=== PATIENT | female | born 1945 | race Asian ===

== ENCOUNTER 2016-06-19 08:13 | Emergency (ER) | payer MEDICARE, OTHER ==
[~2016-06-19] VITALS: Ht 160 cm; Wt 50.5 kg
[~2016-06-19 08:13] MED LIST: BENA5TAB2 PO; CETI10CA PO; CHLO25TA13 PO; GUAI120S26 PO; IBUP-1542 PO; OSLT75C PO
[2016-06-19 08:21] VITALS: Ht 160 cm; Wt 50.5 kg
--- NOTE | 2016-06-19 09:00 | ERD ---
ER Documentation Chief Complaint Date/Time DATE: 06/19/16 TIME: 08:57 Chief Complaint HTN NOTED AT HOME LAST NIGHT SBP 200; BP 138/93 IN TRIAGE HPI Patient is a 71-year-old female with a history of hypertension who presents to the ED with an episode of high blood pressure in the 200s yesterday. She states that she takes losartan and hydrochlorothiazide as prescribed. She states that her blood pressure has been normal today. She is here for repeat blood pressure check. She denies any headache or dizziness. His chest pain, cough, shortness of breath or difficulty moving. Denies abdominal pain, nausea , vomiting or diarrhea. Denies leg pain or swelling. No other complaints. ROS All systems reviewed and are negative except as per history of present illness. Medications Home Meds Active Scripts Cetirizine Hcl* (Zyrtec*) 10 Mg Capsule, 10 MG PO DAILY, #30 TAB.CHEW Prov:ALICIA GALARZA HARMONIC ANALYST 05/10/15 Ttsfgxkrmzl-Y-Rhgadapjfq Hb* (Guaifenesin* DM Syrup) 120 Ml Syrup, 10 ML PO Q4H Y for COUGH, #60 ML Prov:ALICIA GALARZA HARMONIC ANALYST 05/10/15 Ibuprofen* (Motrin*) 600 Mg Tab, 600 MG PO Q6H Y for PAIN AND OR ELEVATED TEMP, #30 TAB Prov:ALICIA GALARZA HARMONIC ANALYST 05/10/15 Oseltamivir Phosphate* (Tamiflu*) 75 Mg Capsule, 75 MG PO BID for 5 Days, CAP Prov:ALICIA GALARZA HARMONIC ANALYST 05/10/15 Reported Medications Benazepril Hcl* (Benazepril Hcl*) Unknown Strength Tablet, PO DAILY, #30 TAB 05/10/15 Chlorthalidone* (Chlorthalidone*) Unknown Strength Tablet, PO DAILY, TAB 05/10/15 Allergies Allergies: Coded Allergies: No Known Allergy (Unverified , 05/10/15) PMhx/Soc History of Surgery: No Anesthesia Reaction: No Hx Neurological Disorder: No Hx Respiratory Disorders: No Hx Cardiac Disorders: Yes (HTN) Hx Psychiatric Problems: No Hx Miscellaneous Medical Probl: No Hx Alcohol Use: No Hx Substance Use: No Hx Tobacco Use: No Smoking Status: Never smoker FmHx Family History: No coronary disease, No diabetes, No other Physical Exam Vitals Vital Signs Date Time Temp Pulse Resp B/P Pulse Ox O2 Delivery O2 Flow Rate FiO2 06/19/16 12:14 172/89 06/19/16 08:21 99.3 98 16 138/93 99 Physical Exam GENERAL: Well-developed, well-nourished female. Appears in no acute distress. HEAD: Normocephalic, atraumatic. EYES: Pupils are equally reactive bilaterally. EOMs grossly intact. No conjunctival erythema. ENT: Moist mucous membranes. No uvula deviation. No kissing tonsils. No exudates. NECK: Supple. No lymphadenopathy or thyromegaly. No meningismus. negative kernig. negative brudinski. LUNG: Clear to auscultation bilaterally. No rhonchi, wheezing, rales or coarse breath sounds. HEART: Regular rate and rhythm. No murmurs, rubs or gallops. ABDOMEN: No scars, ecchymosis or rashes noted. Soft, nontender, and nondistended. Positive bowel sounds in all four quadrants. No rebound tenderness , no guarding. (-) McBurneys point tenderness. No CVA tenderness. BACK: No midline tenderness. Extremities: Equal pulses bilaterally. No peripheral clubbing, cyanosis or edema. No unilateral leg swelling. NEUROLOGIC: Alert and oriented. Moving all four extremities. 5/5 strength in all extremities. Normal speech. Steady gait. Cranial nerves II through XII intact. No ataxia. Negative Romberg test SKIN: Normal color. Warm and dry. No rashes or lesions. Capillary refill < 2 seconds Result Diagram: 06/19/16 1025 06/19/16 1025 Results 24 hrs Laboratory Tests Test 06/19/16 10:25 White Blood Count 8.610^3/ul Red Blood Count 4.5910^6/ul Hemoglobin 13.6g/dl Hematocrit 41.7% Mean Corpuscular Volume 90.8fl Mean Corpuscular Hemoglobin 29.6pg Mean Corpuscular Hemoglobin Concent 32.6g/dl Red Cell Distribution Width 12.1% Platelet Count 06563^3/UL Mean Platelet Volume 8.6fl Neutrophils % 80.3% Lymphocytes % 12.8% Monocytes % 6.0% Eosinophils % 0.2% Basophils % 0.2% Nucleated Red Blood Cells % 0.0/100WBC Neutrophils # 6.910^3/ul Lymphocytes # 1.110^3/ul Monocytes # 0.510^3/ul Eosinophils # 0.010^3/ul Basophils # 0.010^3/ul Nucleated Red Blood Cells # 0.010^3/ul Sodium Level 132mmol/L Potassium Level 4.0mmol/L Chloride Level 92mmol/L Carbon Dioxide Level 28mmol/L Anion Gap 16 Blood Urea Nitrogen 12mg/dl Creatinine 0.63mg/dl Glucose Level 108mg/dl Calcium Level 9.9mg/dl Total Bilirubin 0.8mg/dl Direct Bilirubin 0.00mg/dl Indirect Bilirubin 0.8mg/dl Aspartate Amino Transf (AST/SGOT) 30IU/L Alanine Aminotransferase (ALT/SGPT) 48IU/L Alkaline Phosphatase 76IU/L Total Protein 7.8g/dl Albumin 4.7g/dl Globulin 3.10g/dl Albumin/Globulin Ratio 1.51 Lipase 78U/L Procedures/MDM ER COURSE: I kept the patient and/or family informed of laboratory and diagnostic imaging results throughout the emergency room course. EKG performed, read by Dr. Wadsworth 97bpm, normal sinus rhythm, normal axis, no acute ST segment changes, no T wave inversion MEDICAL DECISION MAKING: This is a 71-year-old female who presents with one episode of high blood pressure reading yesterday.. Vital signs were reviewed. Patient is afebrile. Patient is not hypoxic. Patient has a blood pressure reading of 138/93 here in the ED. Explained to patient that her blood pressure is within normal limits. Her exam is within normal limits. A CAT scan was discussed, risks versus benefits but patient and patient's son refused. Patient is just requesting a repeat blood pressure. . Low suspicion for hypertensive urgency, emergency or endorgan damage. I cnosulted with Dr. Wadsworth regarding this patient, an EKG and blood work was performed. Blood work was within normal limits, no signs of renal disease, anemia. Her blood pressure was rechecked and it was slightly elevated to 172/89. Patient does not show signs of hypertensive urgency, emergency or endorgan damage. Patient can be sent on an outpatient basis and to follow-up with primary care regarding better management of her blood pressure. Patient was also nervous about her blood pressure results and her slightly elevated blood pressure is likely related to stress reaction as well. No CT scan will be done here in the ED as patient did not want one and Low suspicion for intracranial hemorrhage, meningitis, intracranial mass, concussion , temporal arteritis, stroke, elevated intracranial pressure, seizure DISCHARGE: At this time, patient is stable for discharge and outpatient management with no new complaints during the ER course. Patient was sent home with instructions to follow primary care for repeat blood pressure and copy of laboratory studies. . Patient will be discharged home with instructions to recheck for new or worsening symptoms such as fever, nausea, weakness, LOC and to follow up with primary care in the next 1-2 days. Patient was advised to return to the ER for any new or worsening symptoms. Plan was discussed and patient and/or family understands and agrees. Home instructions were given. Departure Diagnosis: Primary Impression: Hypertension Hypertension type: essential hypertension Qualified Code: I10 - Essential hypertension Condition: Stable OSBALDO MONTENEGRO PA-C Jun 19, 2016 09:00
[2016-06-19 10:54] LABS: ADD SCAN DIFF NO
[2016-06-19 11:00] LABS: BASOPHILS % 0.2 % (0.0-2.0); EOSINOPHILS % 0.2 % (0.0-7.0); HEMATOCRIT 41.7 % (37.0-47.0); HEMOGLOBIN 13.6 g/dl (12.0-16.0); LYMPHOCYTES # 1.1 10^3/ul (0.8-2.9); LYMPHOCYTES % 12.8 % (15.0-51.0); MEAN CORPUSCULAR HEMOGLOBIN 29.6 pg (29.0-33.0); MEAN CORPUSCULAR HGB CONC 32.6 g/dl (32.0-37.0); MEAN CORPUSCULAR VOLUME 90.8 fl (82.0-101.0); MEAN PLATELET VOLUME 8.6 fl (7.4-10.4); MONOCYTE # 0.5 10^3/ul (0.3-0.9); NEUTROPHIL # 6.9 10^3/ul (1.6-7.5); NEUTROPHILS % 80.3 % (39.0-77.0); PLATELET COUNT 273 10^3/UL (140-415); RED BLOOD COUNT 4.59 10^6/ul (4.20-5.40); RED CELL DISTRIBUTION WIDTH 12.1 % (11.5-14.5); WHITE BLOOD COUNT 8.6 10^3/ul (4.8-10.8)
[2016-06-19 11:19] LABS: ALBUMIN 4.7 g/dl (3.3-4.9); ALBUMIN/GLOBULIN RATIO 1.51; BILIRUBIN,INDIRECT 0.8 mg/dl (0-1.1); BILIRUBIN,TOTAL 0.8 mg/dl (0.2-1.3); CALCIUM 9.9 mg/dl (8.4-10.2); CREATININE 0.63 mg/dl (0.44-1.00); TOTAL PROTEIN 7.8 g/dl (6.1-8.1)
[2016-06-19 12:14] VITALS: BP 172/89
== END 2016-06-19 12:14 | disposition home or self-care (01) ==
LOC: FTE 08:13
DX: I10 Essential (primary) hypertension (principal)
CPT/HCPCS: 36415; 80053; 83690; 85025; 93005

== ENCOUNTER 2016-06-24 23:08 | Inpatient (IN) | payer MEDICARE, OTHER ==
[~2016-06-24] VITALS: Ht 160 cm; Wt 50.0 kg
[2016-06-24] MEDS ORDERED: SOD CHLORIDE 0.9% 1,000 ML IV STA (23:45)
[2016-06-24] MEDS ORDERED: ONDANSETRON 4 MG INJ IV STA (23:45)
[2016-06-25] VITALS (8 sets, daily range): BP systolic 82–110; BP diastolic 50–60; PULSE 53–66; RESP 16–18; TEMP 97.2; Ht 160 cm; Wt 50.0 kg
--- NOTE | 2016-06-25 00:26 | RADRPT ---
PROCEDURE: CT Brain without contrast. CLINICAL INDICATION: Patient experiencing a headache. TECHNIQUE: A multiplanar CT of the brain was performed on a CT scanner utilizing axial imaging fro m the skull base through the vertex without IV contrast. The CTDIvol is 42.02 mGy and the DLP is 72 0.23 mGycm. One or more of the following dose reduction techniques were utilized: Automated exposu re control, adjustment of the mA and/or kV according to patient size, use of iterative reconstructio n technique. COMPARISON: None FINDINGS: No evidence of intracranial hemorrhage or abnormal extra-axial fluid collection. The brain parenchyma is normal attenuation morphology with preservation of alexander white differentiatio n and age appropriate size of the ventricles and subarachnoid spaces. Atherosclerotic calcification of the cavernous internal carotid arteries. The basal cisterns, posterior fossa contents, brainstem, craniocervical junction, orbits, pituitary axis, paranasal sinuses, mastoid air cells, and calvarium are unremarkable. IMPRESSION: 1. No intracranial hemorrhage or acute intracranial abnormality. 2. Mild age related atrophy. RPTAT:AAJJ Physician Waleska Date Time Electronically viewed and signed by Physician Waleska on 06/25/2016 00:25 SHAWANDA/
[2016-06-25 00:34] LABS: ADD SCAN DIFF NO
[2016-06-25 00:36] LABS: BASOPHILS % 0.4 % (0.0-2.0); EOSINOPHILS # 0.1 10^3/ul (0.0-0.5); EOSINOPHILS % 1.4 % (0.0-7.0); HEMATOCRIT 36.3 % (37.0-47.0); LYMPHOCYTES # 1.6 10^3/ul (0.8-2.9); LYMPHOCYTES % 32.5 % (15.0-51.0); MEAN CORPUSCULAR HEMOGLOBIN 30.7 pg (29.0-33.0); MEAN CORPUSCULAR HGB CONC 35.8 g/dl (32.0-37.0); MEAN CORPUSCULAR VOLUME 85.6 fl (82.0-101.0); MEAN PLATELET VOLUME 8.5 fl (7.4-10.4); MONOCYTE # 0.5 10^3/ul (0.3-0.9); MONOCYTES % 9.3 % (0.0-11.0); NEUTROPHIL # 2.8 10^3/ul (1.6-7.5); NEUTROPHILS % 56.2 % (39.0-77.0); PLATELET COUNT 270 10^3/UL (140-415); RED BLOOD COUNT 4.24 10^6/ul (4.20-5.40); RED CELL DISTRIBUTION WIDTH 11.2 % (11.5-14.5); WHITE BLOOD COUNT 5.1 10^3/ul (4.8-10.8)
[2016-06-25 00:54] LABS: INR 0.89; PARTIAL THROMBOPLASTIN TIME 28.4 Sec (25.0-35.0); PT RATIO 0.9
[2016-06-25 00:56] LABS: ANION GAP 14 (8-16); BLOOD UREA NITROGEN 30 mg/dl (7-20); CALCIUM 9.3 mg/dl (8.4-10.2); CARBON DIOXIDE 28 mmol/L (21-31); CHLORIDE 81 mmol/L (97-110); CREATININE 0.83 mg/dl (0.44-1.00); GLUCOSE 118 mg/dl (70-220); POTASSIUM 3.5 mmol/L (3.5-5.1)
[2016-06-25 01:16] LABS: SODIUM 119 mmol/L (135-144); TROPONIN-I < 0.012 ng/ml (0.00-0.12)
[2016-06-25] MEDS ORDERED: SOD CHLORIDE 0.9% 1,000 ML IV SCH (01:37)
--- NOTE | 2016-06-25 01:46 | ERA ---
ER Documentation Chief Complaint Date/Time DATE: 06/25/16 TIME: 01:42 Chief Complaint Pt reports HTN at home, and darkness in both eyes, and feeling of general p HPI This 71-year-old female presents to the emergency room for evaluation of dizziness, nausea and vomiting. This patient states that she does have a history of hypertension and is taking a combination of benazepril/ hydrochlorothiazide, and clonidine. The patient states that she has vomited twice and denies any blood in the vomit. She does state that she noticed her blood pressure was elevated today so she took 3 tabs of her diuretic, and 3 tabs of clonidine instead of her normal dose 1 tab. The patient states that she took it to bring down her blood pressure. Patient has no headache or chest pain or palpitations at this time. ROS All systems reviewed and are negative except as per history of present illness. Medications Home Meds Active Scripts Cetirizine Hcl* (Zyrtec*) 10 Mg Capsule, 10 MG PO DAILY, #30 TAB.CHEW Prov:ALICIA GALARZA NP 05/10/15 Ggpbsznpwkg-F-Oxgevxusww Hb* (Guaifenesin* DM Syrup) 120 Ml Syrup, 10 ML PO Q4H Y for COUGH, #60 ML Prov:ALICIA GALARZA NP 05/10/15 Ibuprofen* (Motrin*) 600 Mg Tab, 600 MG PO Q6H Y for PAIN AND OR ELEVATED TEMP, #30 TAB Prov:ALICIA GALARZA NP 05/10/15 Oseltamivir Phosphate* (Tamiflu*) 75 Mg Capsule, 75 MG PO BID for 5 Days, CAP Prov:ALICIA GALARZA NP 05/10/15 Reported Medications Benazepril Hcl* (Benazepril Hcl*) Unknown Strength Tablet, PO DAILY, #30 TAB 05/10/15 Chlorthalidone* (Chlorthalidone*) Unknown Strength Tablet, PO DAILY, TAB 05/10/15 Allergies Allergies: Coded Allergies: No Known Allergy (Unverified , 05/10/15) PMhx/Soc Medical and Surgical Hx: pt denies Surgical Hx History of Surgery: No Anesthesia Reaction: No Hx Neurological Disorder: No Hx Respiratory Disorders: No Hx Cardiac Disorders: Yes (HTN) Hx Psychiatric Problems: No Hx Miscellaneous Medical Probl: No Hx Alcohol Use: No Hx Substance Use: No Hx Tobacco Use: No Smoking Status: Never smoker Physical Exam Vitals Vital Signs Date Time Temp Pulse Resp B/P Pulse Ox O2 Delivery O2 Flow Rate FiO2 06/24/16 23:29 98.1 66 18 134/81 100 Physical Exam INITIAL VITAL SIGNS: Reviewed by me GENERAL: The patient is well developed and appropriate for usual state of health in no apparent distress HEENT: Pupils equal, round, and reactive to light. EOMI. There is no scleral icterus. NECK: C-spine is soft and supple, there is no meningismus. There is no cervical lymphadenopathy. LUNGS: Clear to auscultation bilaterally. There are no rales, wheezes or rhonchi. HEART: Regular rate and rhythm, no murmurs, clicks, rubs or gallops. ABDOMEN: Soft, non-tender, non-distended. There are bowel sounds in all four quadrants. No rebound or guarding. EXTREMITIES: There is no peripheral cyanosis or edema. No focal swelling or erythema. NEUROLOGICAL: The patient moves all four extremities with 5/5 strength. Cranial nerves II - XII are intact. Normal gait. Alert and oriented SKIN: There is no apparent rash or petechiae. HEME/LYMPHATIC: There is no evidence of excessive bruising or lymphedema. PSYCHIATRIC: The patient does not appear anxious or depressed. Result Diagram: 06/24/163 06/24/163 Results 24 hrs Laboratory Tests Test 06/24/16 23:53 White Blood Count 5.110^3/ul Red Blood Count 4.2410^6/ul Hemoglobin 13.0g/dl Hematocrit 36.3% Mean Corpuscular Volume 85.6fl Mean Corpuscular Hemoglobin 30.7pg Mean Corpuscular Hemoglobin Concent 35.8g/dl Red Cell Distribution Width 11.2% Platelet Count 43081^3/UL Mean Platelet Volume 8.5fl Neutrophils % 56.2% Lymphocytes % 32.5% Monocytes % 9.3% Eosinophils % 1.4% Basophils % 0.4% Nucleated Red Blood Cells % 0.0/100WBC Neutrophils # 2.810^3/ul Lymphocytes # 1.610^3/ul Monocytes # 0.510^3/ul Eosinophils # 0.110^3/ul Basophils # 0.010^3/ul Nucleated Red Blood Cells # 0.010^3/ul Prothrombin Time 12.0Sec Prothrombin Time Ratio 0.9 INR International Normalized Ratio 0.89 Activated Partial Thromboplast Time 28.4Sec Sodium Level 119mmol/L Potassium Level 3.5mmol/L Chloride Level 81mmol/L Carbon Dioxide Level 28mmol/L Anion Gap 14 Blood Urea Nitrogen 30mg/dl Creatinine 0.83mg/dl Glucose Level 118mg/dl Calcium Level 9.3mg/dl Troponin I < 0.012ng/ml Current Medications Medications (Trade) Dose Ordered Sig/Tri Route PRN Reason Start Time Stop Time Status Last Admin Dose Admin Sodium Chloride (NS) 1,000 ml @ 1,000 mls/hr Q1H STAT IV 06/24/16 23:45 06/25/16 00:44 DC 06/25/16 00:09 Ondansetron HCl 4 mg 4 mg ONCE STAT IV 06/24/16 23:45 06/24/16 23:46 DC 06/25/16 00:09 Sodium Chloride (NS) 1,000 ml @ 80 mls/hr [id number] IV 06/25/16 01:37 06/25/16 14:06 Ondansetron HCl (Zofran Inj) 4 mg ER BRIDGE PRN IV NAUSEA AND/OR VOMITING 06/25/16 02:00 06/26/16 01:59 Acetaminophen (Tylenol Tab) 650 mg ER BRIDGE PRN PO MILD PAIN/FEVER 06/25/16 02:00 06/26/16 01:59 Procedures/MDM CT head: 1. No intracranial hemorrhage or acute intracranial abnormality. 2. Mild age related atrophy. EKG: Rate/Rhythm: [Normal Sinus Rhythm] QRS, ST, T-waves: [No changes consistent w/ acute ischemia] Impression: [No evidence of ischemia or arrhythmia]EKG: This 71-year-old female presents to the emergency room for evaluation of weakness, dizziness, nausea and vomiting. I evaluated this patient and she did receive Zofran. She was complaining of dizziness and stated that she was hypertensive so I obtain a CT of the head to rule out any intracranial bleed. This patient was seen in fast track 5 days ago for the same symptoms and was discharged home. Her CAT scan is normal. I did note that her sodium was markedly decreased from her previous ER visit which was 5 days ago. Sodium was 119. The patient had no seizure activity. This patient did take extra hydrochlorothiazide today and I feel that the excessive a thiazide diuretic is caused hyponatremia. She has no signs of seizure activity in the emergency room , no necessity at this time for hypertonic saline however she will need to stay in the hospital for slow hydration and further evaluation of serum sodium in the morning. The patient will be admitted to our telemetry floor under the care of Dr. plummer Departure Diagnosis: Primary Impression: Hyponatremia Additional Impressions: Thiazide diuretic adverse reaction Hypochloremia Condition: Fair ANDREA TRIPLETT DO Jun 25, 2016 01:46
[2016-06-25] MEDS ORDERED: ACETAMINOPHEN 325 MG TAB PO PRN ×2 (02:00→06:30)
[2016-06-25] MEDS ORDERED: ONDANSETRON 4 MG INJ IV PRN ×2 (02:00→06:30)
[2016-06-25] MEDS ORDERED: SOD CHLORIDE 0.45% 1,000 ML IV SCH (06:29)
[2016-06-25] MEDS ORDERED: NACL 0.9% 3 ML SYG IV SCH (06:30)
[2016-06-25] MEDS ORDERED: morphine 2 MG INJ IV PRN (06:30)
[2016-06-25] MEDS ORDERED: LORAZEPAM 0.5 MG TAB PO PRN (06:30)
[2016-06-25] MEDS ORDERED: hydrALAzine 20 MG INJ IV PRN (06:30)
[2016-06-25] MEDS ORDERED: GUAIFENESIN/DM 5ML CUP PO PRN (06:30)
--- NOTE | 2016-06-25 08:46 | HP ---
DATE OF ADMISSION: 06/25/2016 CHIEF COMPLAINT: Dizziness, nausea, and vomiting. HISTORY OF PRESENT ILLNESS: The patient is a 71-year-old female with a history of hypertension who presented to the emergency department with the chief complaint of dizziness, nausea, and vomiting. She said when she found out that her blood pressure was high, she took three pills of her benazepril and 3 pills of clonidine as opposed to her normal dose of one pill. She then said she started feel ing dizzy and vomited which was described as nonbilious and nonbloody. The patient was seen here in the ER about 6 days ago after she presented complaining of elevated blood pressure in the 200s at [facility]. In the triage, her blood pressure was 138/93. The patient was discharged from the ER to [facility] up with her primary care doctor. When she presented to the ER this time, blood pressure was 134/8 1, heart rate 66, respiratory rate 18, temperature 98.1, oxygen saturation 100% on room air, and her blood pressures remained in acceptable range while she was in the ER. She, however, was found to h ave sodium of 119, chloride 81, BUN was 30 with a creatinine of 0.8. Otherwise, the rest of CBC and BMP were within acceptable range. A head CT was done, and it only showed mild age-related atrophy. Otherwise, no acute findings. REVIEW OF SYSTEMS: A 12-point review was performed and negative except as mentioned in the HPI. PAST MEDICAL HISTORY: As per HPI. SOCIAL HISTORY: Denied history of tobacco, alcohol, or illicit drug use. ALLERGIES: NO KNOWN DRUG ALLERGIES. HOME MEDICATIONS: 1. Zyrtec. 2. Benazepril. 3. Ibuprofen. 4. Clonidine. 5. Chlorthalidone. 6. Guaifenesin. PHYSICAL EXAMINATION: VITAL SIGNS: Stable. Blood pressure 140/78, heart rate 70, respiratory rate 20, temperature 98, ox ygen saturation 100% on room air. GENERAL: The patient lying on the gurney in no acute distress. She looks comfortable. HEENT: No obvious head deformity. Pupils are reactive to light. Extraocular muscles intact. CARDIOVASCULAR: Regular rate and rhythm. No extra sounds. LUNGS: Clear. ABDOMEN: Soft, nontender, nondistended. Positive bowel sounds. EXTREMITIES: No edema. NEUROLOGIC: She was able to move all her extremities with good strength without any focal deficits. LABORATORY: Sodium 119, chloride 81, BUN 30. IMAGING: Brain CT shows no acute findings except mild age-related atrophy. IMPRESSION: 1. Lightheadedness/dizziness. 2. Hyponatremia. 3. Hypertension, blood pressure currently within acceptable range. PLAN: We will admit her to telemetry unit. Her symptoms of dizziness as well as nausea and vomitin g could be the result of hypoglycemia or she may have dropped her blood pressure quickly when she to ok extra doses of her antihypertensives at home. She will be placed on normal saline IV fluid. We will monitor her closely. Her first troponin is negative, and the patient is not complaining of any chest pain. We will obtain a 2D echo as well as a carotid Doppler ultrasound. We will provide ant iemetics as needed. She will be placed on antihypertensives, and we will adjust medication as neede d. Further workup and management per clinical course. Dictated By: RON QUEEN/KUNAL Conf#: [id number] DID#: [id number]
[2016-06-25] MEDS ORDERED: NON-FORMULARY/PATIENT OWN MED (Cetirizine Hcl* (Zyrtec*) 10 MG) PO SCH (09:00)
[2016-06-25 10:01] LABS: ADD SCAN DIFF NO
[2016-06-25 10:04] LABS: BASOPHILS % 0.5 % (0.0-2.0); EOSINOPHILS # 0.1 10^3/ul (0.0-0.5); HEMATOCRIT 37.1 % (37.0-47.0); LYMPHOCYTES # 1.1 10^3/ul (0.8-2.9); LYMPHOCYTES % 26.3 % (15.0-51.0); MEAN CORPUSCULAR HEMOGLOBIN 30.3 pg (29.0-33.0); MEAN CORPUSCULAR VOLUME 86.5 fl (82.0-101.0); MEAN PLATELET VOLUME 8.5 fl (7.4-10.4); MONOCYTE # 0.4 10^3/ul (0.3-0.9); MONOCYTES % 10.9 % (0.0-11.0); NEUTROPHIL # 2.4 10^3/ul (1.6-7.5); NEUTROPHILS % 60.1 % (39.0-77.0); PLATELET COUNT 281 10^3/UL (140-415); RED BLOOD COUNT 4.29 10^6/ul (4.20-5.40); RED CELL DISTRIBUTION WIDTH 11.4 % (11.5-14.5)
[2016-06-25] MEDS: LISINOPRIL 10 MG TAB PO SCH (10:24)
[2016-06-25] MEDS: LORATADINE 10 MG TAB PO SCH (10:24)
[2016-06-25] MEDS: HEPARIN 5,000 UNIT/0.5 ML VIAL SC SCH ×2 (10:28→20:46)
[2016-06-25 10:38] LABS: ALBUMIN 4.2 g/dl (3.3-4.9)
[2016-06-25 10:39] LABS: POTASSIUM 3.3 mmol/L (3.5-5.1)
[2016-06-25 10:41] LABS: BILIRUBIN,INDIRECT 1.2 mg/dl (0-1.1); BILIRUBIN,TOTAL 1.2 mg/dl (0.2-1.3); CREATININE 0.85 mg/dl (0.44-1.00)
[2016-06-25 10:42] LABS: ALBUMIN/GLOBULIN RATIO 1.31; CALCIUM 9.6 mg/dl (8.4-10.2); TOTAL PROTEIN 7.4 g/dl (6.1-8.1)
--- NOTE | 2016-06-25 12:25 | RADRPT ---
PROCEDURE: US carotid arteries. CLINICAL INDICATION: Dizziness. Hypertension. TECHNIQUE: Multiple sonographic images of the carotid arteries and vertebral arteries were obtaine d utilizing alexander scale, duplex, and color-flow imaging. The images were reviewed on a PACS workstati on. COMPARISON: No prior studies are available for comparison. FINDINGS: Evaluation of the right carotid bifurcation region reveals no atherosclerotic disease. Evaluation of the left carotid bifurcation region reveals no atherosclerotic disease. There is antegrade flow within the vertebral arteries bilaterally. RIGHT CAROTID MEASUREMENTS: Common Carotid Fxksti59 (cm/sec) Internal Carotid Artery 76 (cm/sec) External Carotid Artery 55 (cm/sec) Vertebral Artery 53 (cm/sec) Internal Carotid/Common Carotid0.8 LEFT CAROTID MEASUREMENTS: Common Carotid Odexeb46 (cm/sec) Internal Carotid Artery 105 (cm/sec) External Carotid Artery 78 (cm/sec) Vertebral Artery 68 (cm/sec) Internal Carotid/Common Carotid1.3 Validated velocity measurements with angiographic measurements. Velocity criteria are extrapolated f rom diameter data as defined by the Society of Radiologists in Ultrasound Consensus Conference. Radi ology 2003; 229;340-346. This study does indirectly reference the measurement of the distal ICA basim meter as the denominator for stenosis measurement. IMPRESSION: 1. Normal carotid arteries. 2. Normal antegrade flow in the vertebral arteries bilaterally. RPTAT: QQ SRU Consensus Conference Criteria for the Diagnosis of Carotid Artery Stenosis* Degree of Stenosis, % ICA PSV, cm/sec Plaque Estimate, % ICA/CCA PSV Ratio Normal <125 None <2.0 <50 <125 <50 <2.0 50 69 125-230 >50 2.0-4.0 >70 but less than near occlusion >230 >50 <4.0 Near occlusion High, low, or undetectable Visible Variable Total occlusion Undetectable Visible, no detectable lumen Not applicable *Cartoid artery stenosis: alexander-scale and Doppler US diagnosis. Society of Radiologists in Ultrasound Consensus Conference. Radiology 2003; 229: 340-346 .Issa Hollis MD, MD Date Time Electronically viewed and signed by .Issa Hollis MD, on 06/25/2016 12:25 .R/
[2016-06-25] MEDS ORDERED: POTASSIUM CHLORIDE 20 MEQ in SOD CHLORIDE 0.9% 100 ML IVPB ONE (13:30)
[2016-06-25] MEDS: 1/2 NS + KCL 20 MEQ 1,000 ML IV SCH (15:00)
[2016-06-26] VITALS (10 sets, daily range): BP systolic 93–135; BP diastolic 61–66; PULSE 54–67; RESP 16–20
[2016-06-26] MEDS: 1/2 NS + KCL 20 MEQ 1,000 ML IV SCH ×2 (01:24→15:58)
[2016-06-26 07:37] LABS: ADD SCAN DIFF NO
[2016-06-26 07:46] LABS: BASOPHILS % 0.8 % (0.0-2.0); EOSINOPHILS # 0.1 10^3/ul (0.0-0.5); EOSINOPHILS % 2.1 % (0.0-7.0); HEMATOCRIT 36.6 % (37.0-47.0); HEMOGLOBIN 12.1 g/dl (12.0-16.0); LYMPHOCYTES # 1.9 10^3/ul (0.8-2.9); LYMPHOCYTES % 39.1 % (15.0-51.0); MEAN CORPUSCULAR HEMOGLOBIN 29.9 pg (29.0-33.0); MEAN CORPUSCULAR HGB CONC 33.1 g/dl (32.0-37.0); MEAN CORPUSCULAR VOLUME 90.4 fl (82.0-101.0); MEAN PLATELET VOLUME 8.8 fl (7.4-10.4); MONOCYTE # 0.6 10^3/ul (0.3-0.9); MONOCYTES % 11.5 % (0.0-11.0); NEUTROPHIL # 2.2 10^3/ul (1.6-7.5); NEUTROPHILS % 46.1 % (39.0-77.0); PLATELET COUNT 251 10^3/UL (140-415); RED BLOOD COUNT 4.05 10^6/ul (4.20-5.40); RED CELL DISTRIBUTION WIDTH 11.9 % (11.5-14.5); WHITE BLOOD COUNT 4.9 10^3/ul (4.8-10.8)
[2016-06-26 08:00] LABS: POTASSIUM 3.6 mmol/L (3.5-5.1)
[2016-06-26 08:02] LABS: CREATININE 0.81 mg/dl (0.44-1.00)
[2016-06-26 08:03] LABS: CALCIUM 9.2 mg/dl (8.4-10.2); PHOSPHORUS 2.9 mg/dl (2.5-4.9)
--- NOTE | 2016-06-26 10:08 | PN ---
Date/Time of Note Date/Time of Note DATE: 06/26/16 TIME: 10:06 Assessment/Plan VTE Prophylaxis VTE Prophylaxis Intervention: SCD's Lines/Catheters IV Catheter Type (from Nrsg): Peripheral IV Assessment/Plan Assessment/Plan 1. Lightheadedness/dizziness. 2. Hyponatremia. 3. accelerated HTN with BP fluctuates a lot Plan: continue current BP meds including lisinopril and amlodipine downgrade to med/surge floor will follow up on pending labs Subjective 24 Hr Interval Summary Free Text/Dictation Bp now better controlled, BP stable,afebrile Exam/Review of Systems Vital Signs Vitals Vital Signs Date Time Temp Pulse Resp B/P Pulse Ox O2 Delivery O2 Flow Rate FiO2 06/26/16 08:00 54 06/26/16 07:35 97.3 16 112/63 98 06/25/16 07:08 Room Air Intake and Output 06/25/16 06/25/16 06/26/16 15:00 23:00 07:00 Intake Total 100 ml 720 ml 970 ml Balance 100 ml 720 ml 970 ml Exam GENERAL: The patient lying on the gurney in no acute distress. She looks comfortable. HEENT: No obvious head deformity. Pupils are reactive to light. Extraocular muscles intact. CARDIOVASCULAR: Regular rate and rhythm. No extra sounds. LUNGS: Clear. ABDOMEN: Soft, nontender, nondistended. Positive bowel sounds. EXTREMITIES: No edema. NEUROLOGIC: She was able to move all her extremities with good strength without any focal deficits. Results Result Diagram: 06/26/16 0625 06/26/16 0625 Results 24 hrs Laboratory Tests Test 06/26/16 06:25 White Blood Count 4.9 # Red Blood Count 4.05 L Hemoglobin 12.1 Hematocrit 36.6 L Mean Corpuscular Volume 90.4 Mean Corpuscular Hemoglobin 29.9 Mean Corpuscular Hemoglobin Concent 33.1 Red Cell Distribution Width 11.9 Platelet Count 251 Mean Platelet Volume 8.8 Neutrophils % 46.1 Lymphocytes % 39.1 Monocytes % 11.5 H Eosinophils % 2.1 Basophils % 0.8 Nucleated Red Blood Cells % 0.0 Neutrophils # 2.2 Lymphocytes # 1.9 Monocytes # 0.6 Eosinophils # 0.1 Basophils # 0.0 Nucleated Red Blood Cells # 0.0 Sodium Level 138 Potassium Level 3.6 Chloride Level 101 Carbon Dioxide Level 29 Anion Gap 12 Blood Urea Nitrogen 20 Creatinine 0.81 Glucose Level 86 Calcium Level 9.2 Phosphorus Level 2.9 Magnesium Level 2.0 Medications Medications Current Medications Lorazepam (Ativan) 0.5 mg Q8H PRN PO ANXIETY; Start 06/25/16 at 06:30 Ondansetron HCl (Zofran Inj) 4 mg Q6H PRN IV NAUSEA AND/OR VOMITING; Start at 06:30 Acetaminophen (Tylenol Tab) 650 mg Q6H PRN PO PAIN LEVEL 1-3 OR FEVER; Start at 06:30 Morphine Sulfate (morphine) 2 mg Q4H PRN IV PAIN LEVEL 7-10; Start 06/25/16 at 06:30 Heparin Sodium (Porcine) (Heparin (5000 Units/0.5 ml)) 5,000 unit Q12 SC Last administered on 06/25/16 20:46; Admin Dose 5,000 UNIT; Start 06/25/16 at 09:00 Guaifenesin/ Dextromethorphan (Robitussin Dm Liquid Cup) 10 ml Q4H PRN PO COUGH ; Start 06/25/16 at 06:30 Hydralazine HCl (Apresoline) 10 mg Q4H PRN IV SBP > 160; Start 06/25/16 at 06: 30 Lisinopril (Zestril) 10 mg DAILY PO Last administered on 06/25/16 10:24; Admin Dose 10 MG; Start 06/25/16 at 09:00 Loratadine 10 mg 10 mg DAILY PO Last administered on 06/25/16 10:24; Admin Dose 10 MG; Start 06/25/16 at 09:00 Potassium Chloride/Sodium Chloride (1/2 NS + KCl 20 Meq) 1,000 ml @ 80 mls/hr [id number] IV Last administered on 06/26/16 01:24; Admin Dose 80 MLS/HR; Start at 13:30 Amlodipine Besylate (Norvasc) 5 mg DAILY PO ; Start 06/26/16 at 09:00 KRISTEN MOLINA MD Jun 26, 2016 10:08
[2016-06-26] MEDS: LORATADINE 10 MG TAB PO SCH (10:13)
[2016-06-26] MEDS: AMLODIPINE 5 MG TAB PO SCH (10:14)
[2016-06-26] MEDS: LISINOPRIL 10 MG TAB PO SCH (10:14)
[2016-06-26] MEDS: HEPARIN 5,000 UNIT/0.5 ML VIAL SC SCH ×2 (10:19→20:26)
--- NOTE | 2016-06-26 11:15 | RADRPT ---
Echocardiogram Report Patient Name: YADIRA MALIN Gender: Female Date: 1945 Study Date: 25-Jun-2016 Staff Radiation Therapist: TORRES Location: I Ref. Physician: RON CORBETT Quality: Good Procedures: Transthoracic echocardiogram with complete 2D, M-Mode, and Doppler examination. Indications: Lightheaded. 2D/M Mode Doppler Measurement Value Normal Ranges Measurement Value Normal Ranges AoR Diam MM 3.4 cm AV Peak Gabriele 1.4 m/sec ACS MM 1.7 cm AV Peak PG 8.4 mmHg LVIDd 2D 3.9 3.5 - 5.6 cm LVOT Peak Gabriele 0.9 m/sec LVIDs 2D 2.2 2.1 - 4.1 cm LVOT Peak PG 3.5 mmHg LVPWd 2D 1.0 0.6 - 1.1 cm MV E Peak Gabriele 0.7 m/sec IVSd 2D 1.1 0.6 - 1.1 cm MV A Peak Gabriele 1.0 m/sec EDV 2D 65.9 cm3 MV E/A 0.7 ESV 2D 10.1 cm3 MV Decel Time 256 msec LA Dimen 2D 2.7 2.3 - 4.0 cm MV Decel [place] 3 MV E/A 0.7 TR Peak Gabriele 2.3 m/sec TR Peak PG 20.7 mmHg PV Peak Gabriele 0.8 m/sec PV Peak PG 3.0 mmHg RVSP 23.7 mmHg Findings Left Ventricle: Normal left ventricular systolic function. Normal left ventricular cavity size. Normal left ventricular wall thickness. Ejection fraction is visually estimated at 65 %. Tissue Doppler/Mitral Doppler indices are within normal limits. Right Ventricle: Normal right ventricular size. Normal right ventricular systolic function. Left Atrium: There is mild enlargement of left atrium. Right Atrium: There is mild enlargement of right atrium. Atrial Septum: Normal atrial septum. Mitral Valve: Trace mitral regurgitation. Aortic Valve: No significant aortic stenosis or insufficiency. Normal trileaflet aortic valve structure. Tricuspid Valve: Normal appearance of the tricuspid valve. Estimated peak PA systolic pressure 24 mmHg. There is mild tricuspid regurgitation. Pulmonic Valve: There is trace pulmonic regurgitation. Pericardium: Normal pericardium with no significant pericardial effusion. Aorta: Normal aortic root. IVC: Normal size and normal respiratory collapse consistent with normal right atrial pressure. Pulmonary Artery: Normal pulmonary artery size. Conclusions 1.Normal left ventricular systolic function. Normal left ventricular cavity size. Normal left ventricular wall thickness. Ejection fraction is visually estimated at 65 %. Tissue Doppler/Mitral Doppler indices are within normal limits. 2.No significant valvular stenosis or regurgitation seen. 3.Estimated peak PA systolic pressure 24 mmHg based on RA pressure of 3 mmHg. Electronically Signed By: Boni Dolan 26-Jun-2016 11:14:28 -0700 Patient Name: YADIRA MALIN Study Date: 25-Jun-2016 [id number]
[2016-06-27] MEDS: 1/2 NS + KCL 20 MEQ 1,000 ML IV SCH ×2 (03:04→16:13)
[2016-06-27 05:35] LABS: ADD SCAN DIFF NO
[2016-06-27 05:43] LABS: POTASSIUM 4.1 mmol/L (3.5-5.1)
[2016-06-27 05:45] LABS: CREATININE 0.74 mg/dl (0.44-1.00)
[2016-06-27 05:46] LABS: CALCIUM 9.3 mg/dl (8.4-10.2)
[2016-06-27 06:12] LABS: BASOPHILS % 0.7 % (0.0-2.0); EOSINOPHILS # 0.3 10^3/ul (0.0-0.5); EOSINOPHILS % 4.7 % (0.0-7.0); HEMATOCRIT 35.3 % (37.0-47.0); HEMOGLOBIN 11.7 g/dl (12.0-16.0); LYMPHOCYTES # 1.9 10^3/ul (0.8-2.9); LYMPHOCYTES % 34.4 % (15.0-51.0); MEAN CORPUSCULAR HEMOGLOBIN 30.3 pg (29.0-33.0); MEAN CORPUSCULAR HGB CONC 33.1 g/dl (32.0-37.0); MEAN CORPUSCULAR VOLUME 91.5 fl (82.0-101.0); MEAN PLATELET VOLUME 8.7 fl (7.4-10.4); MONOCYTE # 0.6 10^3/ul (0.3-0.9); NEUTROPHIL # 2.7 10^3/ul (1.6-7.5); PLATELET COUNT 258 10^3/UL (140-415); RED BLOOD COUNT 3.86 10^6/ul (4.20-5.40); RED CELL DISTRIBUTION WIDTH 11.9 % (11.5-14.5); WHITE BLOOD COUNT 5.6 10^3/ul (4.8-10.8)
[2016-06-27 07:56] VITALS: BP 131/73; RESP 16
[2016-06-27] MEDS: LISINOPRIL 10 MG TAB PO SCH (09:00)
[2016-06-27] MEDS: LORATADINE 10 MG TAB PO SCH (09:01)
[2016-06-27] MEDS: AMLODIPINE 5 MG TAB PO SCH (09:01)
--- NOTE | 2016-06-27 09:59 | PN ---
Date/Time of Note Date/Time of Note DATE: 06/27/16 TIME: 09:54 Assessment/Plan VTE Prophylaxis VTE Prophylaxis Intervention: SCD's Lines/Catheters IV Catheter Type (from Nrs): Peripheral IV Urinary Cath still in place: No Assessment/Plan Assessment/Plan 1. Lightheadedness/dizziness. 2. Hyponatremia. now resolved 3. accelerated HTN with BP fluctuates a lot Plan: continue current BP meds including lisinopril and amlodipine downgraded to med/surge floor will set up home health on discharge, plan for d/c tomorrow Subjective 24 Hr Interval Summary Free Text/Dictation BP now better controlled, still fluctuates a lot Exam/Review of Systems Vital Signs Vitals Vital Signs Date Time Temp Pulse Resp B/P Pulse Ox O2 Delivery O2 Flow Rate FiO2 06/27/16 07:56 97.5 65 16 131/73 100 06/25/16 07:08 Room Air Intake and Output 06/26/16 06/26/16 06/27/16 15:00 23:00 07:00 Intake Total 580 ml 80 ml 1080 ml Balance 580 ml 80 ml 1080 ml Exam GENERAL: The patient lying on the gurney in no acute distress. She looks comfortable. HEENT: No obvious head deformity. Pupils are reactive to light. Extraocular muscles intact. CARDIOVASCULAR: Regular rate and rhythm. No extra sounds. LUNGS: Clear. ABDOMEN: Soft, nontender, nondistended. Positive bowel sounds. EXTREMITIES: No edema. NEUROLOGIC: She was able to move all her extremities with good strength without any focal deficits. Results Result Diagram: 06/27/16 0507 06/27/16 0507 Results 24 hrs Laboratory Tests Test 06/27/16 05:07 White Blood Count 5.6 Red Blood Count 3.86 L Hemoglobin 11.7 L Hematocrit 35.3 L Mean Corpuscular Volume 91.5 Mean Corpuscular Hemoglobin 30.3 Mean Corpuscular Hemoglobin Concent 33.1 Red Cell Distribution Width 11.9 Platelet Count 258 Mean Platelet Volume 8.7 Neutrophils % 49.0 Lymphocytes % 34.4 Monocytes % 11.0 Eosinophils % 4.7 Basophils % 0.7 Nucleated Red Blood Cells % 0.0 Neutrophils # 2.7 Lymphocytes # 1.9 Monocytes # 0.6 Eosinophils # 0.3 Basophils # 0.0 Nucleated Red Blood Cells # 0.0 Sodium Level 138 Potassium Level 4.1 Chloride Level 104 Carbon Dioxide Level 26 Anion Gap 12 Blood Urea Nitrogen 17 Creatinine 0.74 Glucose Level 84 Calcium Level 9.3 Magnesium Level 1.8 Medications Medications Current Medications Lorazepam (Ativan) 0.5 mg Q8H PRN PO ANXIETY; Start 06/25/16 at 06:30 Ondansetron HCl (Zofran Inj) 4 mg Q6H PRN IV NAUSEA AND/OR VOMITING; Start at 06:30 Acetaminophen (Tylenol Tab) 650 mg Q6H PRN PO PAIN LEVEL 1-3 OR FEVER; Start at 06:30 Morphine Sulfate (morphine) 2 mg Q4H PRN IV PAIN LEVEL 7-10; Start 06/25/16 at 06:30 Heparin Sodium (Porcine) (Heparin (5000 Units/0.5 ml)) 5,000 unit Q12 SC Last administered on 06/26/16 20:26; Admin Dose 5,000 UNIT; Start 06/25/16 at 09:00 Guaifenesin/ Dextromethorphan (Robitussin Dm Liquid Cup) 10 ml Q4H PRN PO COUGH ; Start 06/25/16 at 06:30 Hydralazine HCl (Apresoline) 10 mg Q4H PRN IV SBP > 160; Start 06/25/16 at 06: 30 Lisinopril (Zestril) 10 mg DAILY PO Last administered on 06/26/16 10:14; Admin Dose 10 MG; Start 06/25/16 at 09:00 Loratadine 10 mg 10 mg DAILY PO Last administered on 06/26/16 10:13; Admin Dose 10 MG; Start 06/25/16 at 09:00 Potassium Chloride/Sodium Chloride (1/2 NS + KCl 20 Meq) 1,000 ml @ 80 mls/hr [id number] IV Last administered on 06/27/16 03:04; Admin Dose 80 MLS/HR; Start at 13:30 Amlodipine Besylate (Norvasc) 5 mg DAILY PO Last administered on 06/26/16 10: 14; Admin Dose 5 MG; Start 06/26/16 at 09:00 KRISTEN MOLINA MD Jun 27, 2016 09:59
--- NOTE | 2016-06-27 10:03 | PDOCDIS ---
Discharge Instructions CONDITION Patient Condition: Good HOME CARE INSTRUCTIONS: Special Diet: Regular ACTIVITY: Activity Restrictions: Slowly Increase Activity Rest between Activity Avoid heavy lifting Avoid Heavy Housework FOLLOW UP/APPOINTMENTS Appointments Follow up with Dr.Kalpesh Molina in 1-2 week after discharge, Follow up with her own PMD as scheduled KRISTEN MOLINA MD Jun 27, 2016 10:03
[2016-06-27] MEDS ORDERED: AMLO-145 PO (10:04)
[2016-06-27] MEDS: HEPARIN 5,000 UNIT/0.5 ML VIAL SC SCH ×2 (11:20→21:21)
[2016-06-27 19:00] VITALS: BP 128/74; RESP 16
[2016-06-28] MEDS: 1/2 NS + KCL 20 MEQ 1,000 ML IV SCH (04:45)
[2016-06-28 07:57] VITALS: BP 121/77; RESP 16
[2016-06-28] MEDS: AMLODIPINE 5 MG TAB PO SCH (08:19)
[2016-06-28] MEDS: LORATADINE 10 MG TAB PO SCH (08:19)
[2016-06-28] MEDS: LISINOPRIL 10 MG TAB PO SCH (08:19)
[2016-06-28] MEDS: HEPARIN 5,000 UNIT/0.5 ML VIAL SC SCH (09:13)
--- NOTE | 2016-06-28 11:00 | PN ---
Date/Time of Note Date/Time of Note DATE: 06/28/16 TIME: 10:58 Assessment/Plan VTE Prophylaxis VTE Prophylaxis Intervention: SCD's Lines/Catheters IV Catheter Type (from Nrsg): Peripheral IV Urinary Cath still in place: No Assessment/Plan Assessment/Plan 1. Lightheadedness/dizziness. 2. Hyponatremia. now resolved 3. accelerated HTN with BP fluctuates a lot Plan: continue current BP meds including lisinopril and amlodipine downgraded to med/surge floor d/c home today with home health pt has been having Persistent dizziness with ambulation, Her BP fluctuates a low from systolic 120-190s- Her Work up for renal artery stenosis has been sent. she lives alone with her son, Her son go to college, she needs help with her medications, diet education, we will set up home health for RN Visit, Medications check, orthostatic vital signs check, laboratory BMP check in one week, Home safety evaluation and Physical therapy at home. Date of encounter: 06/28/2016 Case management consult has been requested to set up home health on discharge Subjective 24 Hr Interval Summary Free Text/Dictation doing better, BP stable iwth current regimen Exam/Review of Systems Vital Signs Vitals Vital Signs Date Time Temp Pulse Resp B/P Pulse Ox O2 Delivery O2 Flow Rate FiO2 06/28/16 07:57 98.4 71 16 121/77 98 06/25/16 07:08 Room Air Intake and Output 06/27/16 06/27/16 06/28/16 15:00 23:00 07:00 Intake Total 1820 ml 1660 ml Balance 1820 ml 1660 ml Exam GENERAL: The patient lying on the gurney in no acute distress. She looks comfortable. HEENT: No obvious head deformity. Pupils are reactive to light. Extraocular muscles intact. CARDIOVASCULAR: Regular rate and rhythm. No extra sounds. LUNGS: Clear. ABDOMEN: Soft, nontender, nondistended. Positive bowel sounds. EXTREMITIES: No edema. NEUROLOGIC: She was able to move all her extremities with good strength without any focal deficits. Results Result Diagram: 06/27/16 0507 06/27/16 0507 Medications Medications Current Medications Lorazepam (Ativan) 0.5 mg Q8H PRN PO ANXIETY; Start 06/25/16 at 06:30 Ondansetron HCl (Zofran Inj) 4 mg Q6H PRN IV NAUSEA AND/OR VOMITING; Start at 06:30 Acetaminophen (Tylenol Tab) 650 mg Q6H PRN PO PAIN LEVEL 1-3 OR FEVER; Start at 06:30 Morphine Sulfate (morphine) 2 mg Q4H PRN IV PAIN LEVEL 7-10; Start 06/25/16 at 06:30 Heparin Sodium (Porcine) (Heparin (5000 Units/0.5 ml)) 5,000 unit Q12 SC Last administered on 06/28/16 09:13; Admin Dose 5,000 UNIT; Start 06/25/16 at 09:00 Guaifenesin/ Dextromethorphan (Robitussin Dm Liquid Cup) 10 ml Q4H PRN PO COUGH ; Start 06/25/16 at 06:30 Hydralazine HCl (Apresoline) 10 mg Q4H PRN IV SBP > 160; Start 06/25/16 at 06: 30 Lisinopril (Zestril) 10 mg DAILY PO Last administered on 06/28/16 08:19; Admin Dose 10 MG; Start 06/25/16 at 09:00 Loratadine 10 mg 10 mg DAILY PO Last administered on 06/28/16 08:19; Admin Dose 10 MG; Start 06/25/16 at 09:00 Potassium Chloride/Sodium Chloride (1/2 NS + KCl 20 Meq) 1,000 ml @ 80 mls/hr [id number] IV Last administered on 06/28/16 04:45; Admin Dose 80 MLS/HR; Start at 13:30 Amlodipine Besylate (Norvasc) 5 mg DAILY PO Last administered on 06/28/16 08: 19; Admin Dose 5 MG; Start 06/26/16 at 09:00 KRISTEN MOLINA MD Jun 28, 2016 11:00
--- NOTE | 2016-06-29 17:25 | DS ---
DATE OF ADMISSION: 06/25/2016 DATE OF DISCHARGE: 06/28/2016 FINAL DISCHARGE DIAGNOSES: 1. Symptomatic hyponatremia causing lightheadedness and dizziness. 2. Accelerated hypertension. 3. Intractable pain secondary to intractable headaches secondary to fluctuating hypertension. CONSULTATIONS DONE DURING THIS HOSPITALIZATION: None. PROCEDURES PERFORMED DURING THIS HOSPITALIZATION: None. HOSPITAL COURSE: This is a 71-year-old female with a past medical history of hypertension, history of allergic rhinitis who presented with a complaint of severe headache associated with lightheadedne ss and dizziness. She is noted to have a symptomatic hyponatremia and also had accelerated hyperten brianda. The patient required couple of antihypertensives to have better blood pressure control. She remained hemodynamically stable. Subsequently downgraded to the med/surg floor where she was monitored 1 more day for her blood pressure control, and her blood pressure was controlled, and afte r that she was set up for physical therapy evaluations and home health upon discharge. DISPOSITION: To home with home health. DISCHARGE CONDITION: Stable and improved compared to admission. DISCHARGE ACTIVITIES: As tolerated, slowly resume to the normal baseline activity. DISCHARGE DIET: Low fat, low sodium diet. DISCHARGE MEDICATIONS: As per medical reconciliation. She is given new prescriptions of amlodipine 5 mg p.o. daily. DISCHARGE FOLLOWUP INSTRUCTIONS: The patient is to follow with Dr. Kristen Molina in outpatient neph rology clinic 1 to 2 weeks after discharge. She has been explained about the discharge plan and fol lowup instructions. She understood and verbalized understanding. Dictated By: KRISTEN MOLINA MD, KP/KUNAL Conf#: [id number] DID#: [id number]
== END 2016-06-28 15:30 | disposition home health service (06) | DRG 641 ==
LOC: E/R 23:08 → MS4 06-25 01:39 → MS2 06-26 14:55
PROVIDERS: ADMIT Internal Medicine; ATTEND Internal Medicine
DX: E87.1 Hypo-osmolality and hyponatremia (principal); I10 Essential (primary) hypertension; E87.8 Other disorders of electrolyte and fluid balance, not elsewhere classified
CPT/HCPCS: 36415; 70450; 80048; 80053; 83735; 84100; 84484; 85025; 85610; 85730; 93005; 93306; 93880; 96361; 96374; J1644; J2405; J3480; J7030

== ENCOUNTER 2018-03-06 18:03 | Inpatient (IN) | payer MEDICARE, OTHER ==
[~2018-03-06] VITALS: Ht 152.4 cm; Wt 52.7 kg
[~2018-03-06 18:03] MED LIST changes: +AMLO-145 PO; -BENA5TAB2 PO; +BENA5TAB33 PO; -CHLO25TA13 PO; +CHLO25TA2 PO; -OSLT75C PO
[2018-03-07] VITALS (10 sets, daily range): BP systolic 90–117; BP diastolic 55–76; PULSE 61–85; RESP 17–20; Ht 152.4 cm; Wt 52.7 kg
[2018-03-07] MEDS ORDERED: LORAZEPAM 2 MG INJ IV ONE
[2018-03-07] MEDS ORDERED: SOD CHLORIDE 0.9% 1,000 ML IV ONE (01:00)
[2018-03-07] MEDS ORDERED: SOD CHLORIDE 0.9% 1,000 ML IV SCH (02:43)
[2018-03-07] MEDS ORDERED: ACETAMINOPHEN 325 MG TAB PO PRN (03:00)
[2018-03-07] MEDS ORDERED: ONDANSETRON 4 MG INJ IV PRN (03:00)
[2018-03-07] MEDS ORDERED: LORAZEPAM 4 MG/ML VIAL IV PRN (03:00)
[2018-03-07] MEDS ORDERED: NACL 0.9% 3 ML SYG IV SCH (03:00)
--- NOTE | 2018-03-07 03:17 | ERD ---
ER Documentation Chief Complaint Chief Complaint HTN, palpitation, SOB, vomit x2 today HPI This is a very pleasant 72-year-old female comes in with hypertension palpitations and vomiting for times 2-day. She also has a mild headache. No fevers no chills. Vomited twice was nonbilious and nonbloody. No chest pain. No other current complaints. ROS All systems reviewed and are negative except as per history of present illness. Medications Home Meds Active Scripts Amlodipine Besylate* (Amlodipine Besylate*) 5 Mg Tablet, 5 MG PO BID, #180 TAB Prov:KRISTEN MOLINA MD 06/27/16 Cetirizine Hcl* (Zyrtec*) 10 Mg Capsule, 10 MG PO DAILY, #30 TAB.CHEW Prov:ALICIA GALARZA NP 05/10/15 Hrzfijaomil-B-Hzopamcsok Hb* (Guaifenesin* DM Syrup) 120 Ml Syrup, 10 ML PO Q4H PRN for COUGH, #60 ML Prov:ALICIA GALARZA NP 05/10/15 Ibuprofen* (Motrin*) 600 Mg Tab, 600 MG PO Q6H PRN for PAIN AND OR ELEVATED TEMP , #30 TAB Prov:ALICIA GALARZA NP 05/10/15 Reported Medications Benazepril Hcl* (Benazepril Hcl*) Unknown Strength Tablet, PO DAILY, #30 TAB 05/10/15 Chlorthalidone* (Chlorthalidone*) Unknown Strength Tablet, PO DAILY, TAB 05/10/15 Allergies Allergies: Coded Allergies: No Known Allergy (Unverified , 05/10/15) PMhx/Soc History of Surgery: No Anesthesia Reaction: No Hx Neurological Disorder: No Hx Respiratory Disorders: No Hx Cardiac Disorders: Yes (HTN) Hx Psychiatric Problems: No Hx Miscellaneous Medical Probl: No Hx Alcohol Use: No Hx Substance Use: No Hx Tobacco Use: No Smoking Status: Never smoker Physical Exam Vitals Vital Signs Date Temp Pulse Resp B/P (MAP) Pulse Ox O2 O2 Flow FiO2 Time Delivery Rate 03/07/18 98.0 72 14 138/90 99 Room Air 02:10 (106) 03/06/18 98.6 78 20 111/70 99 Room Air 23:45 (84) 03/06/18 78 20 142/81 99 Room Air 18:24 (101) 03/06/18 98.6 83 16 125/80 97 18:14 (95) Physical Exam Const: No acute distress Head: Atraumatic Eyes: Normal Conjunctiva ENT: Normal External Ears, Nose and Mouth. Neck: Full range of motion. No meningismus. Resp: Clear to auscultation bilaterally Cardio: Regular rate and rhythm, no murmurs Abd: Soft, non tender, non distended. Normal bowel sounds Skin: No petechiae or rashes Back: No midline or flank tenderness Ext: No cyanosis, or edema Neur: Awake and alert Psych: Normal Mood and Affect Result Diagram: 03/06/18 2348 03/06/18 2348 Results 24 hrs Laboratory Tests Test 03/06/18 23:48 White Blood Count 7.1 10^3/ul Red Blood Count 4.11 10^6/ul Hemoglobin 12.4 g/dl Hematocrit 34.7 % Mean Corpuscular Volume 84.4 fl Mean Corpuscular Hemoglobin 30.2 pg Mean Corpuscular Hemoglobin Concent 35.7 g/dl Red Cell Distribution Width 11.1 % Platelet Count 257 10^3/UL Mean Platelet Volume 8.3 fl Immature Granulocytes % 0.600 % Neutrophils % 72.5 % Lymphocytes % 16.8 % Monocytes % 9.8 % Eosinophils % 0.0 % Basophils % 0.3 % Nucleated Red Blood Cells % 0.0 /100WBC Immature Granulocytes # 0.040 10^3/ul Neutrophils # 5.1 10^3/ul Lymphocytes # 1.2 10^3/ul Monocytes # 0.7 10^3/ul Eosinophils # 0.0 10^3/ul Basophils # 0.0 10^3/ul Nucleated Red Blood Cells # 0.0 10^3/ul Sodium Level 121 mmol/L Potassium Level 3.1 mmol/L Chloride Level 77 mmol/L Carbon Dioxide Level 24 mmol/L Anion Gap 20 Blood Urea Nitrogen 17 mg/dl Creatinine 0.73 mg/dl Est Glomerular Filtrat Rate mL/min mL/min Glucose Level 141 mg/dl Calcium Level 9.6 mg/dl Total Bilirubin 1.3 mg/dl Direct Bilirubin 0.00 mg/dl Indirect Bilirubin 1.3 mg/dl Aspartate Amino Transf (AST/SGOT) 40 IU/L Alanine Aminotransferase (ALT/SGPT) 39 IU/L Alkaline Phosphatase 58 IU/L Troponin I < 0.012 ng/ml B-Type Natriuretic Peptide 190 PG/ML Total Protein 7.3 g/dl Albumin 4.6 g/dl Globulin 2.70 g/dl Albumin/Globulin Ratio 1.70 Current Medications Medications Dose Sig/Tri Start Time Status Last (Trade) Ordered Route PRN Stop Time Admin Dose Reason Admin Lorazepam 1 mg ONCE ONCE 03/07/18 DC 03/07/18 (Ativan) IV 00:00 00:04 03/07/18 00:01 Sodium 1,000 ml @ Q1H ONCE 03/07/18 DC 03/07/18 Chloride 1,000 mls/hr IV 01:00 00:50 03/07/18 01:59 Procedures/MDM EKG: Rate/Rhythm: [Normal Sinus Rhythm] QRS, ST, T-waves: [No changes consistent w/ acute ischemia] Impression: [No evidence of ischemia or arrhythmia] Chest X-ray 1V Interpreted by me: Soft Tissue: No acute abnormalities Bones: No acute abnormalities Mediastinum/Cardiac Silhouette/Lungs: [No acute abnormalities] Medical decision make: 72-year female with severe hyponatremia. At this point patient has been treated with intravenous normal saline. Patient will be admitted to telemetry for further evaluation and management. Dr. Yu made aware Departure Diagnosis: Primary Impression: Hyponatremia Condition: Serious RON SHAY Mar 07, 2018 03:17
[2018-03-07] MEDS ORDERED: POTASSIUM CHLORIDE (SR) 20 MEQ TAB PO ONE (03:31)
--- NOTE | 2018-03-07 07:32 | NUR ---
Patient arrived from ER at around 03:25. Awake, alert and oriented x4. Ambulatory with a steady gait. Belongings checked and placed inside the closet. Instructed to use the call light. Kept safe and comfortable. Placed call light within reach. Refused picture taking on the back.
[2018-03-07] MEDS: AMLODIPINE 5 MG TAB PO SCH ×2 (08:27→20:54)
--- NOTE | 2018-03-07 08:30 | NUR ---
RN UPDATE NOTIFIED DR WALKER REGARDING MAGNESIUM LEVEL 1.6. AWARE. ORDERED MAGNESIUM SULFATE IV X 1.
[2018-03-07] MEDS ORDERED: POTASSIUM CHLORIDE (SR) 20 MEQ TAB PO STA (08:32)
--- NOTE | 2018-03-07 08:34 | PN ---
Date/Time of Note Date/Time of Note DATE: 03/07/18 TIME: 08:34 Assessment/Plan VTE Prophylaxis SCD applied (from Nsg): Yes Pharmacological prophylaxis: NA/contraindicated Pharm contraindication: low risk/ambulating Lines/Catheters IV Catheter Type (from Nrsg): Saline Lock Assessment/Plan Assessment/Plan 1. Acute hyponatremia - Patient has history of hyponatremia during last admission a year ago that resolved. No signs of diarrhea or N/V - Currently on fluids with increase in Na by 5 in the last 9 hours. Will continue to monitor. - No neurological symptoms appreciated 2. Hypertension - Patient states her BP was 150s and took extra doses of her BP medications at home - BP stable and will continue to monitor - Continue home medications 3. Hypokalemia - K replaced and will continue monitoring 4. AMS- resolved - Continue monitoring 5. Disposition - continue monitoring Na levels and mental status. If shows improvement, will d/c in next 24-48 hours Result Diagram: 03/07/18 0451 03/07/18 0451 Results 24hrs Laboratory Tests Test 03/06/18 23:48 03/07/18 04:51 White Blood Count 7.1 # 7.6 Red Blood Count 4.11 L 3.70 L Hemoglobin 12.4 11.4 L Hematocrit 34.7 L 31.5 L Mean Corpuscular Volume 84.4 85.1 Mean Corpuscular Hemoglobin 30.2 30.8 Mean Corpuscular Hemoglobin Concent 35.7 36.2 Red Cell Distribution Width 11.1 L 11.1 L Platelet Count 257 240 Mean Platelet Volume 8.3 8.4 Immature Granulocytes % 0.600 H 0.400 Neutrophils % 72.5 76.7 Lymphocytes % 16.8 14.5 L Monocytes % 9.8 7.8 Eosinophils % 0.0 0.3 Basophils % 0.3 0.3 Nucleated Red Blood Cells % 0.0 0.0 Immature Granulocytes # 0.040 H 0.030 Neutrophils # 5.1 5.9 Lymphocytes # 1.2 1.1 Monocytes # 0.7 0.6 Eosinophils # 0.0 0.0 Basophils # 0.0 0.0 Nucleated Red Blood Cells # 0.0 0.0 Sodium Level 121 L 126 L Potassium Level 3.1 L 3.3 L Chloride Level 77 L 85 L Carbon Dioxide Level 24 29 Anion Gap 20 H 12 # Blood Urea Nitrogen 17 14 Creatinine 0.73 0.71 Est Glomerular Filtrat Rate mL/min Glucose Level 141 94 # Calcium Level 9.6 9.1 Total Bilirubin 1.3 Direct Bilirubin 0.00 Indirect Bilirubin 1.3 H Aspartate Amino Transf (AST/SGOT) 40 Alanine Aminotransferase (ALT/SGPT) 39 Alkaline Phosphatase 58 Troponin I < 0.012 B-Type Natriuretic Peptide 190 H Total Protein 7.3 Albumin 4.6 Globulin 2.70 Albumin/Globulin Ratio 1.70 Hemoglobin A1c 5.5 Magnesium Level 1.6 L Triglycerides Level 60 Cholesterol Level 123 LDL Cholesterol, Calculated 64 HDL Cholesterol 47 Cholesterol/HDL Ratio 2.6 Thyroid Stimulating Hormone (TSH) 2.030 Subjective 24 Hr Interval Summary Free Text/Dictation Patient states shes feeling better since she was admitted. States she is here because of elevated blood pressure and took extra medications which may have caused her shakiness. Translation services used but patient understands peruvian as well. Exam/Review of Systems Vital Signs Vitals Vital Signs Date Temp Pulse Resp B/P (MAP) Pulse Ox O2 O2 Flow FiO2 Time Delivery Rate 03/07/18 71 08:27 03/07/18 97.9 18 112/76 99 07:58 (88) 03/07/18 Room Air 04:01 Exam General: No acute distress. awake and answering questions appropriately. Neck: Supple with full range of motion. Lungs: Clear to auscultation bilaterally no crackles rales or wheezing Heart: Normal S1-S2, Regular rhythm and rate. No murmur, S3, or S4 Abdomen: Soft , nontender, nondistended , bowel sounds are present. No guarding no rebound tenderness Extremities: Normal to inspection, no edema no cyanosis Skin: no rashes or lesions Medications Medications Current Medications Amlodipine Besylate (Norvasc) 5 mg BID PO Last administered on 03/07/18at 08:27; Admin Dose 5 MG; Start 03/07/18 at 09:00 IV Flush (NS 3 ml) 3 ml PER PROTOCOL IV ; Start 03/07/18 at 03:00 Lorazepam (Ativan) 0.5 mg Q6H PRN IV ANXIETY; Start 03/07/18 at 03:00; Stop 03/08/18 at 02:59 Ondansetron HCl (Zofran Inj) 4 mg Q6H PRN IV NAUSEA AND/OR VOMITING; Start 03/07/18 at 03:00 Acetaminophen (Tylenol Tab) 650 mg Q6H PRN PO PAIN LEVEL 1-3 OR FEVER; Start 03/07/18 at 03:00 Influenza Virus Vaccine Quadrival (Fluzone) 0.5 ml ONCE ONCE IM* ; Start 03/08/18 at 10:00; Stop 03/08/18 at 10:01 Potassium Chloride 30 meq/ Sodium Chloride 1,015 ml @ 50 mls/hr [id number] IV ; Start 03/07/18 at 09:00 MARI WALKER MD Mar 07, 2018 08:34
[2018-03-07] MEDS ORDERED: POTASSIUM CHLORIDE 30 MEQ in SOD CHLORIDE 0.45% 1,000 ML IV SCH (09:00)
[2018-03-07] MEDS ORDERED: MAGNESIUM SULFATE 2 GM/50 ML 50 ML IVPB ONE (09:00)
--- NOTE | 2018-03-07 09:56 | HP ---
Date/Time of Note Date/Time of Note DATE: 03/07/18 TIME: 09:47 Assessment/Plan VTE Prophylaxis SCD applied (from Nsg): Yes Pharmacological prophylaxis: NA/contraindicated Pharm contraindication: low risk/ambulating Lines/Catheters IV Catheter Type (from Nrsg): Saline Lock Assessment/Plan Hospital Course This is a 72-year-old female being admitted to the telemetry floor for: #1 #1 altered level of consciousness: Patient at the current time is alert and oriented x4 however she does appear to be shaky and tremulous. This could be secondary to taking too many doses of her clonidine versus hyponatremia: Patient did present with a sodium of 120. At the current time will monitor the neil ent's blood pressures closely. PRN Ativan for any agitated/tremulous shaking behavior. Will slowly correct the hyponatremia with a goal of not increasing sodium more than 6 to 8 Meq over the next 24 hours. We will initiate her on normal saline at 100 cc an hour check the BMP every 4 hours. Adjust fluids as needed. Will consult nephrology dr. Chowdhury. #2 hyponatremia: will initiate treatment with normal saline at a rate of approximately 100 cc an hour. The goal is to not increase the sodium more than 6-8meqs over 24 hours. Will consult nephrology for further fluid management. Will check BMP every 6 4 hours. #3 hypertension: We will resume amlodipine. We will need to confirm patient's other medication at home doses and resume as tolerated. Resume as tolerated. #4 DVT GI prophylaxis: SCDs, no GI prophylaxis indicated Further treatment strategy will be implemented as per the clinical course Result Diagram: 03/07/18 0451 03/07/18 0451 Results 24hrs Laboratory Tests Test 03/06/18 23:48 03/07/18 04:51 White Blood Count 7.1 # 7.6 Red Blood Count 4.11 L 3.70 L Hemoglobin 12.4 11.4 L Hematocrit 34.7 L 31.5 L Mean Corpuscular Volume 84.4 85.1 Mean Corpuscular Hemoglobin 30.2 30.8 Mean Corpuscular Hemoglobin Concent 35.7 36.2 Red Cell Distribution Width 11.1 L 11.1 L Platelet Count 257 240 Mean Platelet Volume 8.3 8.4 Immature Granulocytes % 0.600 H 0.400 Neutrophils % 72.5 76.7 Lymphocytes % 16.8 14.5 L Monocytes % 9.8 7.8 Eosinophils % 0.0 0.3 Basophils % 0.3 0.3 Nucleated Red Blood Cells % 0.0 0.0 Immature Granulocytes # 0.040 H 0.030 Neutrophils # 5.1 5.9 Lymphocytes # 1.2 1.1 Monocytes # 0.7 0.6 Eosinophils # 0.0 0.0 Basophils # 0.0 0.0 Nucleated Red Blood Cells # 0.0 0.0 Sodium Level 121 L 126 L Potassium Level 3.1 L 3.3 L Chloride Level 77 L 85 L Carbon Dioxide Level 24 29 Anion Gap 20 H 12 # Blood Urea Nitrogen 17 14 Creatinine 0.73 0.71 Est Glomerular Filtrat Rate mL/min Glucose Level 141 94 # Calcium Level 9.6 9.1 Total Bilirubin 1.3 Direct Bilirubin 0.00 Indirect Bilirubin 1.3 H Aspartate Amino Transf (AST/SGOT) 40 Alanine Aminotransferase (ALT/SGPT) 39 Alkaline Phosphatase 58 Troponin I < 0.012 B-Type Natriuretic Peptide 190 H Total Protein 7.3 Albumin 4.6 Globulin 2.70 Albumin/Globulin Ratio 1.70 Hemoglobin A1c 5.5 Magnesium Level 1.6 L Triglycerides Level 60 Cholesterol Level 123 LDL Cholesterol, Calculated 64 HDL Cholesterol 47 Cholesterol/HDL Ratio 2.6 Thyroid Stimulating Hormone (TSH) 2.030 HPI/ROS Admit Date/Time Admit Date/Time Mar 07, 2018 at 02:29 Hx of Present Illness Chief complaint: Shakiness and numbness This is a 72-year-old Somali speaking female with a past medical history of hypertension who presented to the emergency department brought in by her nephew with symptoms of shakiness and numbness. As per the ED documentation and from the RN the nephew reported that the patient was awake and alert x4 however she was shaky and numb in the hands and feet. She had noticed elevated blood pressures at home and she went to her primary care doctor who advised her to take additional doses of clonidine on top of metoprolol given that her blood pressure was poorly controlled at home. Patient denied any chest pain or shortness of breath. Patient is Somali as well. Allergies: NKDA Medications: See MAR ROS Const: As per HPI fever, chills, weight gain or weight loss, fatigue, or diaphoresis Eyes : No pain discharge or redness or change in visual acuity ENT: No pain, sore throat, congestion, congestion, dysphagia or discharge Respiratory: No shortness of breath, cough, sputum, wheezing, or pleuritic pain Cardiovascular: No chest pain, palpitation, PND, or edema GI : no change in appetite, abdominal pain, nausea, vomiting, diarrhea, constipation, or change in the color his stool Genitourinary: No dysuria, hematuria, flank pain , discharge or CVA tenderness Musculoskeletal: No joint pain, back pain, neck pain, restricted range of motion in neck or joints Skin: No rash, bruising or hives Neuro: As per HPI Endocrine: No polyuria, polydipsia, temperature intolerance Psych: No hallucination, depression, anxiety or suicidal ideation PMH/Family/Social Past Medical History Hypertension Medications Current Medications Amlodipine Besylate (Norvasc) 5 mg BID PO Last administered on 03/07/18at 08:27; Admin Dose 5 MG; Start 03/07/18 at 09:00 IV Flush (NS 3 ml) 3 ml PER PROTOCOL IV ; Start 03/07/18 at 03:00 Lorazepam (Ativan) 0.5 mg Q6H PRN IV ANXIETY; Start 03/07/18 at 03:00; Stop 03/08/18 at 02:59 Ondansetron HCl (Zofran Inj) 4 mg Q6H PRN IV NAUSEA AND/OR VOMITING; Start 03/07/18 at 03:00 Acetaminophen (Tylenol Tab) 650 mg Q6H PRN PO PAIN LEVEL 1-3 OR FEVER; Start 03/07/18 at 03:00 Influenza Virus Vaccine Quadrival (Fluzone) 0.5 ml ONCE ONCE IM* ; Start 03/08/18 at 10:00; Stop 03/08/18 at 10:01 Potassium Chloride 30 meq/ Sodium Chloride 1,015 ml @ 50 mls/hr [id number] IV Last administered on 03/07/18at 09:12; Admin Dose 50 MLS/HR; Start 03/07/18 at 09:00 Magnesium Sulfate 50 ml @ 25 mls/hr ONCE ONCE IVPB ; Start 03/07/18 at 09:00; Stop 03/07/18 at 10:59 Coded Allergies: No Known Allergy (Unverified , 05/10/15) Past Surgical History Past Surgical Hx: no surgical history Family History Significant Family History: no pertinent family hx Social History Alcohol Use: none Smoking Status: Never smoker Drug Use: none Exam/Review of Systems Vital Signs Vitals Vital Signs Date Temp Pulse Resp B/P (MAP) Pulse Ox O2 O2 Flow FiO2 Time Delivery Rate 03/07/18 71 08:27 03/07/18 97.9 18 112/76 99 07:58 (88) 03/07/18 Room Air 04:01 Exam Exam General: Patient noted to be shaky and tremulous however she does appear to be improved according to the [employer] compared to what she was when she came in. Patient was given Ativan to help settle her down.. HEENT: Atraumatic, normocephalic. The pupils are equal, round and reactive. Extraocular motor are intact Neck: Supple with full range of motion. Lungs: Clear to auscultation bilaterally no crackles rales or wheezing Heart: Normal S1-S2, Regular rhythm and rate. No murmur, S3, or S4 Abdomen: Soft , nontender, nondistended , bowel sounds are present. No guarding no rebound tenderness , No masses or organomegaly. No costovertebral temporal angle mass Extremities: Normal to inspection, no edema no cyanosis Neurologic: Alert and oriented x4, patient though does appear to be tremulous and shaky. JANET ODEN Mar 07, 2018 09:56
--- NOTE | 2018-03-07 16:59 | CONS ---
Date/Time of Note Date/Time of Note DATE: 03/07/18 TIME: 16:45 Assessment/Plan Assessment/Plan Assessment/Plan This is a 72-year-old female admitted to the telemetry floor for: #1 hyponatremia: will initiate treatment with normal saline at a rate of approximately 100 cc an hour. - goal of not increasing sodium more than 6 to 8 Meq over the next 24 hours. Latest Na 130 `- normal saline at 100 cc an hour check the BMP every 4 hours. Adjust fluids as needed. #2 altered level of consciousness: D/T sodium of 120, taking too many doses of her clonidine versus hyponatremia`- resolving #3 hypertension: - cont amlodipine. #4 DVT GI prophylaxis: SCDs, no GI prophylaxis indicated Further treatment strategy will be implemented as per the clinical course. Patient seen in collaboration with Dr Chowdhury Result Diagram: 03/07/18 0451 03/07/18 1405 Results 24hrs Laboratory Tests Test 03/06/18 23:48 03/07/18 04:51 03/07/18 09:20 03/07/18 14:05 White Blood 7.1 # 7.6 Count Red Blood Count 4.11 L 3.70 L Hemoglobin 12.4 11.4 L Hematocrit 34.7 L 31.5 L Mean Corpuscular 84.4 85.1 Volume Mean Corpuscular 30.2 30.8 Hemoglobin Mean Corpuscular 35.7 36.2 Hemoglobin Christy nt Red Cell 11.1 L 11.1 L Distribution Width Platelet Count 257 240 Mean Platelet 8.3 8.4 Volume Immature 0.600 H 0.400 Granulocytes % Neutrophils % 72.5 76.7 Lymphocytes % 16.8 14.5 L Monocytes % 9.8 7.8 Eosinophils % 0.0 0.3 Basophils % 0.3 0.3 Nucleated Red 0.0 0.0 Blood Cells % Immature 0.040 H 0.030 Granulocytes # Neutrophils # 5.1 5.9 Lymphocytes # 1.2 1.1 Monocytes # 0.7 0.6 Eosinophils # 0.0 0.0 Basophils # 0.0 0.0 Nucleated Red 0.0 0.0 Blood Cells # Sodium Level 121 L 126 L 126 L 130 L Potassium Level 3.1 L 3.3 L 3.3 L 3.8 Chloride Level 77 L 85 L 87 L 95 L Carbon Dioxide 24 29 29 26 Level Anion Gap 20 H 12 # 10 9 Blood Urea 17 14 14 16 Nitrogen Creatinine 0.73 0.71 0.61 0.65 Est Glomerular Filtrat Rate mL/min Glucose Level 141 94 # 97 87 Calcium Level 9.6 9.1 8.8 8.9 Total Bilirubin 1.3 Direct Bilirubin 0.00 Indirect 1.3 H Bilirubin Aspartate Amino 40 Transf (AST/SGOT ) Alanine 39 Aminotransferase (ALT/SGPT) Alkaline 58 Phosphatase Troponin I < 0.012 B-Type 190 H Natriuretic Peptide Total Protein 7.3 Albumin 4.6 Globulin 2.70 Albumin/Globulin 1.70 Ratio Hemoglobin A1c 5.5 Magnesium Level 1.6 L Triglycerides 60 Level Cholesterol 123 Level LDL Cholesterol, 64 Calculated HDL Cholesterol 47 Cholesterol/HDL 2.6 Ratio Thyroid 2.030 Stimulating Hormone (TSH) Osmolality 260 L Consultation Date/Type/Reason Admit Date/Time Mar 07, 2018 at 02:29 Date of Consultation: Mar 07, 2018 Type of Consult NEPHROLOGY Reason for Consultation HYPONATREMIA Requesting Provider: MARI FERMIN MD Hx of Present Illness Hx of Present Illness Chief complain Hyponatremia This is a 72-year-old Slovenian speaking female with a past medical history of hypertension is admitted with c/o shakiness and numbness in ER . She had elevated blood pressures at home and she went to her primary care doctor who advised her to take additional doses of clonidine on top of metoprolol given that her blood pressure was poorly controlled at home. Patient baseline Na 121 in ER. Patient denied any chest pain or shortness of breath. Patient is admitted under Dr Fermin for further treatment and evaluation. Patient denies any chest pain, shortness of breath, dizziness, headache, fever, focal weakness, numbness, any calf pain, abdominal pain, nausea/vomitting. Nephrology is consulted regarding Hyponatremia Allergies: NKDA Medications: See MAR Constitutional: improved Eyes: no complaints, pain ENT: bleeding Respiratory: no complaints Cardiovascular: no complaints Gastrointestinal: no complaints Genitourinary: no complaints Musculoskeletal: no complaints Neurologic: no complaints Endocrine: no complaints Past Medical History Medical History: hypertension Medications Current Medications Amlodipine Besylate (Norvasc) 5 mg BID PO Last administered on 03/07/18at 08:27; Admin Dose 5 MG; Start 03/07/18 at 09:00 IV Flush (NS 3 ml) 3 ml PER PROTOCOL IV ; Start 03/07/18 at 03:00 Lorazepam (Ativan) 0.5 mg Q6H PRN IV ANXIETY; Start 03/07/18 at 03:00; Stop 03/08/18 at 02:59 Ondansetron HCl (Zofran Inj) 4 mg Q6H PRN IV NAUSEA AND/OR VOMITING; Start 03/07/18 at 03:00 Acetaminophen (Tylenol Tab) 650 mg Q6H PRN PO PAIN LEVEL 1-3 OR FEVER; Start 03/07/18 at 03:00 Influenza Virus Vaccine Quadrival (Fluzone) 0.5 ml ONCE ONCE IM* ; Start 03/08/18 at 10:00; Stop 03/08/18 at 10:01 Potassium Chloride 30 meq/ Sodium Chloride 1,015 ml @ 50 mls/hr [id number] IV Last administered on 03/07/18at 09:12; Admin Dose 50 MLS/HR; Start 03/07/18 at 09:00 Allergies: Coded Allergies: No Known Allergy (Unverified , 05/10/15) Past Surgical History Past Surgical Hx: no surgical history Family History Significant Family History: no pertinent family hx Social History Alcohol Use: none Smoking Status: Never smoker Drug Use: none Exam/Review of Systems Vital Signs Vitals Vital Signs Date Temp Pulse Resp B/P (MAP) Pulse Ox O2 O2 Flow FiO2 Time Delivery Rate 03/07/18 61 16:20 03/07/18 98.3 18 116/66 98 15:38 (83) 03/07/18 Room Air 04:01 Exam Constitutional: alert, well developed Psych: nl mood/affect Head: atraumatic Eyes: nl conjunctiva, EOMI, nl sclera ENMT: nl external ears & nose Neck: non-tender Cardiovascular: regular rate and rhythm Genitourinary - Female: nl adnexae Extremities: normal pulses Neurological: nl speech Medications Medications Current Medications Amlodipine Besylate (Norvasc) 5 mg BID PO Last administered on 03/07/18at 08: 27; Admin Dose 5 MG; Start 03/07/18 at 09:00 IV Flush (NS 3 ml) 3 ml PER PROTOCOL IV ; Start 03/07/18 at 03:00 Lorazepam (Ativan) 0.5 mg Q6H PRN IV ANXIETY; Start 03/07/18 at 03:00; Stop 03/08/18 at 02:59 Ondansetron HCl (Zofran Inj) 4 mg Q6H PRN IV NAUSEA AND/OR VOMITING; Start 03/07/18 at 03:00 Acetaminophen (Tylenol Tab) 650 mg Q6H PRN PO PAIN LEVEL 1-3 OR FEVER; Start 03/07/18 at 03:00 Influenza Virus Vaccine Quadrival (Fluzone) 0.5 ml ONCE ONCE IM* ; Start 03/08/18 at 10:00; Stop 03/08/18 at 10:01 Potassium Chloride 30 meq/ Sodium Chloride 1,015 ml @ 50 mls/hr [id number] IV Last administered on 03/07/18at 09:12; Admin Dose 50 MLS/HR; Start 03/07/18 at 09:00 DERRICK ISSA Mar 07, 2018 16:56
[2018-03-08] VITALS: PULSE 64
[2018-03-08 04:00] VITALS: BP 111/54; PULSE 67; PULSE 70; RESP 18
--- NOTE | 2018-03-08 06:32 | NUR ---
All needs attended and met. No significant change of status during the shift. Kept safe and comfortable. Placed call light within reach.
[2018-03-08 07:44] VITALS: BP 121/61; PULSE 84; RESP 18
[2018-03-08 08:00] VITALS: PULSE 81
[2018-03-08] MEDS: AMLODIPINE 5 MG TAB PO SCH (08:45)
--- NOTE | 2018-03-08 08:55 | PN ---
Date/Time of Note Date/Time of Note DATE: 03/08/18 TIME: 08:55 Assessment/Plan VTE Prophylaxis Risk score (from [facility] [place])>0 risk: 2 SCD applied (from [facility] [place]): No SCD contraindicated: low risk/ambulating Pharmacological prophylaxis: NA/contraindicated Pharm contraindication: low risk/ambulating Lines/Catheters IV Catheter Type (from [facility]): Saline Lock Assessment/Plan Assessment/Plan 1. Acute hyponatremia- resolved - Patient has no neurological symptoms appreciated and Na normalized off fluids 2. Hypertension - Patient states her BP was 150s and took extra doses of her BP medications at home - BP stable and will continue to monitor - Continue home medications 3. AMS- resolved - Continue monitoring 4. Tongue abrasion - will give abreva for discomfort 5. Disposition - Medically stable for discharge home Result Diagram: 03/07/18 0451 03/08/18 0454 Results 24hrs Laboratory Tests Test 03/07/18 09:20 03/07/18 14:05 03/07/18 20:55 03/07/18 20:59 Sodium Level 126 L 130 L 135 Potassium Level 3.3 L 3.8 3.9 Chloride Level 87 L 95 L 101 Carbon Dioxide 29 26 26 Level Anion Gap 10 9 8 Blood Urea 14 16 17 Nitrogen Creatinine 0.61 0.65 0.69 Est Glomerular Filtrat Rate mL/min Glucose Level 97 87 89 Osmolality 260 L Calcium Level 8.8 8.9 9.1 Urine Color STRAW Urine Clarity CLEAR Urine pH 7.0 Urine Specific 1.005 Jeffers Urine Ketones NEGATIVE Urine Nitrite NEGATIVE Urine Bilirubin NEGATIVE Urine NEGATIVE Urobilinogen Urine Leukocyte NEGATIVE Esterase Urine 0 Microscopic RBC Urine 1 Microscopic WBC Urine Hemoglobin 1+ H Urine Osmolality 191 L Urine Random 14 L Sodium Urine Glucose NEGATIVE Urine Total NEGATIVE Protein Test 03/08/18 04:54 Sodium Level 138 Potassium Level 3.7 Chloride Level 103 Carbon Dioxide 26 Level Anion Gap 9 Blood Urea 14 Nitrogen Creatinine 0.67 Est Glomerular Filtrat Rate mL/min Glucose Level 89 Calcium Level 8.9 Magnesium Level 2.3 Total Bilirubin 0.5 Direct Bilirubin 0.00 Indirect 0.5 Bilirubin Aspartate Amino 38 Transf (AST/SGOT ) Alanine 43 Aminotransferase (ALT/SGPT) Alkaline 47 Phosphatase Total Protein 6.5 Albumin 3.8 Globulin 2.70 Albumin/Globulin 1.40 Ratio Subjective 24 Hr Interval Summary Free Text/Dictation Patient feeling better but complaining of raw area on lateral aspect of left tongue. No acute overnight event and no further episodes of shaking Exam/Review of Systems Vital Signs Vitals Vital Signs Date Temp Pulse Resp B/P (MAP) Pulse Ox O2 O2 Flow FiO2 Time Delivery Rate 03/08/18 81 08:00 03/08/18 98.0 18 121/61 94 07:44 (81) 03/07/18 Room Air 04:01 Intake and Output 03/07/18 03/07/18 03/08/18 1515:00 23:00 07:00 IntakeIntake Total 200 ml 1000 ml 800 ml BalanceBalance 200 ml 1000 ml 800 ml Exam General: No acute distress. awake and answering questions appropriately. Neck: Supple with full range of motion. Lungs: Clear to auscultation bilaterally no crackles rales or wheezing Heart: Normal S1-S2, Regular rhythm and rate. No murmur, S3, or S4 Abdomen: Soft , nontender, nondistended , bowel sounds are present. No guarding no rebound tenderness Extremities: Normal to inspection, no edema no cyanosis Skin: no rashes or lesions Medications Medications Current Medications Amlodipine Besylate (Norvasc) 5 mg BID PO Last administered on 03/08/18at 08:45; Admin Dose 5 MG; Start 03/07/18 at 09:00 IV Flush (NS 3 ml) 3 ml PER PROTOCOL IV ; Start 03/07/18 at 03:00 Ondansetron HCl (Zofran Inj) 4 mg Q6H PRN IV NAUSEA AND/OR VOMITING; Start 03/07/18 at 03:00 Acetaminophen (Tylenol Tab) 650 mg Q6H PRN PO PAIN LEVEL 1-3 OR FEVER; Start 03/07/18 at 03:00 Influenza Virus Vaccine Quadrival (Fluzone) 0.5 ml ONCE ONCE IM* ; Start 03/08/18 at 10:00; Stop 03/08/18 at 10:01 MARI WALKER MD Mar 08, 2018 08:55
[2018-03-08 11:25] VITALS: BP 131/65; PULSE 78; RESP 18
[2018-03-08 12:00] VITALS: PULSE 72
[2018-03-08] MEDS ORDERED: DOCO2CRE3 TOP (12:50)
--- NOTE | 2018-03-08 12:59 | PDOCDIS ---
Discharge Instructions DIAGNOSIS Discharge Diagnosis 1. Acute hyponatremia- resolved 2. Hypertension 3. Hypokalemia- resolved 4. AMS- resolved CONDITION [id number] Patient Condition: [id number] Stable HOME CARE INSTRUCTIONS: [id number] Diet Instructions: [id number] Low Fat /Cholesterol [id number] Special Diet: [id number] LOW FAT, LOW CHOLESTEROL FOLLOW UP/APPOINTMENTS Follow-up Plan 1. Follow up with your primary care physician in 1 week 2. Use abreva on the lesion on your tongue for relief. Keep well hydrating and call PCP if does not improve over the next few days 3. You were continued on Norvasc for blood pressure control. You should continue on Norvasc and Benazepril but do not take the Chlorthalidone. This may be the reason your sodium has been so low. 4. If symptoms return, please go to your closest emergency department MARI WALKER MD Mar 08, 2018 12:59
--- NOTE | 2018-03-08 14:13 | NUR ---
Patient discharged home via wheelchair accompanied by relative in stable condition.
--- NOTE | 2018-03-08 15:38 | CONS ---
Date/Time of Note Date/Time of Note DATE: 03/08/18 TIME: 15:36 Assessment/Plan Assessment/Plan Assessment/Plan #1 hyponatremia: 2/2 hypovolemic hyponatremia, na improved after IVF NS #2 altered level of consciousness: D/T sodium of 120, taking too many doses of her clonidine versus hyponatremia`- resolving #3 hypertension: - cont amlodipine. possible d/c home today Result Diagram: 03/07/18 0451 03/08/18 0454 Results 24hrs Laboratory Tests Test 03/07/18 20:55 03/07/18 20:59 03/08/18 04:54 Urine Color STRAW Urine Clarity CLEAR Urine pH 7.0 Urine Specific [place] 1.005 Urine Ketones NEGATIVE Urine Nitrite NEGATIVE Urine Bilirubin NEGATIVE Urine Urobilinogen NEGATIVE Urine Leukocyte Esterase NEGATIVE Urine Microscopic RBC 0 Urine Microscopic WBC 1 Urine Hemoglobin 1+ H Urine Osmolality 191 L Urine Random Sodium 14 L Urine Glucose NEGATIVE Urine Total Protein NEGATIVE Sodium Level 135 138 Potassium Level 3.9 3.7 Chloride Level 101 103 Carbon Dioxide Level 26 26 Anion Gap 8 9 Blood Urea Nitrogen 17 14 Creatinine 0.69 0.67 Est Glomerular Filtrat Rate mL/min Glucose Level 89 89 Calcium Level 9.1 8.9 Magnesium Level 2.3 Total Bilirubin 0.5 Direct Bilirubin 0.00 Indirect Bilirubin 0.5 Aspartate Amino 38 Transf (AST/SGOT) Alanine 43 Aminotransferase (ALT/SGPT) Alkaline Phosphatase 47 Total Protein 6.5 Albumin 3.8 Globulin 2.70 Albumin/Globulin Ratio 1.40 Consultation Date/Type/Reason Admit Date/Time Mar 07, 2018 at 02:29 Initial Consult Date 03/07/18 Requesting Provider: MARI WALKER MD 24 HR Interval Summary Free Text/Dictation doing better, Na better, c rimproving Exam/Review of Systems Vital Signs Vitals Vital Signs Date Temp Pulse Resp B/P (MAP) Pulse Ox O2 O2 Flow FiO2 Time Delivery Rate 03/08/18 72 12:00 03/08/18 98.8 18 131/65 99 Room Air 11:25 (87) Intake and Output 03/07/18 03/07/18 03/08/18 1515:00 23:00 07:00 IntakeIntake Total 200 ml 1000 ml 800 ml BalanceBalance 200 ml 1000 ml 800 ml Exam Constitutional: alert Psych: no complaints Head: normocephalic Eyes: nl conjunctiva ENMT: nl external ears & nose Neck: supple, non-tender Respiratory: clear to auscultation, normal air movement Cardiovascular: regular rate and rhythm, nl pulses Gastrointestinal: soft Musculoskeletal: nl extremities to inspection Extremities: normal pulses Neurological: [employer] II-XII intact, nl mental status, nl speech KRISTEN MOLINA MD Mar 08, 2018 15:38
--- NOTE | 2018-03-08 17:45 | DS ---
Date/Time of Note Date/Time of Note DATE: 03/08/18 TIME: 17:43 Discharge Summary Admission/Discharge Info Admit Date/Time Mar 07, 2018 at 02:29 Discharge Date/Time Mar 08, 2018 at 14:12 Discharge Diagnosis 1. Acute hyponatremia- resolved 2. Hypertension 3. Hypokalemia- resolved 4. AMS- resolved Patient Condition: Stable Consults Nephrology- Dr. be Procedures PROCEDURE: CT Brain without contrast. CLINICAL INDICATION: Altered level of consciousness TECHNIQUE: A CT of the brain was performed utilizing axial imaging from the skull base through the vertex without intravenous contrast. Multiplanar reformatted images were made.The CTDIvol is 37.7, 38.94 mGy and the DLP is 1522.56 mGycm. The patient was unable to remain still for the scan and was rescanned. One or more the following dose reduction techniques were utilized: Automated exposure control, adjustment of the mA and / or kV according to patient's size, or use of iterative reconstruction technique. DICOM images are available. COMPARISON: CT BRAIN 06/25/2016 FINDINGS: There is no intracranial hemorrhage, mass effect, or midline shift. No extra- axial fluid collection is seen. Mild atrophy is identified with compensatory ventricular and sulcal enlargement. Minimal decreased attenuation is seen in the periventricular and deep white matter, compatible with microvascular ischemic disease. The alexander white matter differentiation is well preserved with no acute infarct detected. The osseous structures and visualized paranasal sinuses are unremarkable. Mild arterial calcification. IMPRESSION: 1. No evidence of acute intracranial pathology. No significant change compared to previous study. 2. Mild diffuse atrophy. 3. There is minimal microvascular ischemic disease in the periventricular and deep white matter. RPTAT: [facility] .Charanjit Olson MD, MD Date Time Electronically viewed and signed by .Charanjit Olson MD, MD on 03/07/2018 02:00 PROCEDURE: XR 1 view Chest. CLINICAL INDICATION: Chest pain. TECHNIQUE: Portable Single frontal view of the chest was obtained. COMPARISON: There are no similar studies submitted for comparison. FINDINGS: The heart is normal in size. There are mild aortic calcifications. There is no focal consolidation. There is no pleural effusion. No pneumothorax is identified. The osseous structures are intact. There is mild to moderate spondylosis/enthe sopathy within the thoracic spine. IMPRESSION: No evidence for acute cardiopulmonary disease. Aortic calcifications. Further findings as detailed above. RPTAT: HVF .Anibal Bhagat MD, MD Date Time Electronically viewed and signed by .Anibal Bhagat MD, on 03/07/2018 00:17 Hx of Present Illness Chief complaint: Shakiness and numbness This is a 72-year-old Jordanian speaking female with a past medical history of hypertension who presented to the emergency department brought in by her nephew with symptoms of shakiness and numbness. As per the ED documentation and from the RN the nephew reported that the patient was awake and alert x4 however she was shaky and numb in the hands and feet. She had noticed elevated blood pressures at home and she went to her primary care doctor who advised her to take additional doses of clonidine on top of metoprolol given that her blood pressure was poorly controlled at home. Patient denied any chest pain or shortness of breath. Patient is Jordanian as well. Allergies: NKDA Hospital Course Patient was admitted for close monitoring and treatment of hyponatremia. Patients mentation returned to baseline and discussed symptoms may have been from taking too many of her BP medications. Patient was slowly hydrated and sodium levels returned to baseline with no continued neurology deficits appreciated. Patient was complaining of an abrasion/lesion on left side of tongue and treated with Abreva. Patients presenting symptoms resolved and on day of discharge, patients vitals and physical exam were stable. Patient was discharged home in good condition. Home Meds Active Scripts Docosanol (Abreva) 2 Gm Cream.gm., 1 APPLIC TOP 5 TIMES DAILY for lesion on tongue, #1 TUB Prov:MARI WALKER MD 03/08/18 Amlodipine Besylate* (Amlodipine Besylate*) 5 Mg Tablet, 5 MG PO BID, #180 TAB Prov:KRISTEN BE MD 06/27/16 Cetirizine Hcl* (Zyrtec*) 10 Mg Capsule, 10 MG PO DAILY, #30 TAB.CHEW Prov:GEOVANNIALICIA GANG PLANK WORKMAN 05/10/15 Ibuprofen* (Motrin*) 600 Mg Tab, 600 MG PO Q6H PRN for PAIN AND OR ELEVATED TEMP, #30 TAB Prov:GEOVANNIALICIA [employer] WORKMAN 05/10/15 Reported Medications Benazepril Hcl* (Benazepril Hcl*) Unknown Strength Tablet, PO DAILY, #30 TAB 05/10/15 Discontinued Reported Medications Chlorthalidone* (Chlorthalidone*) Unknown Strength Tablet, PO DAILY, TAB 05/10/15 Discontinued Scripts Xbejwoajqgh-G-Alejapkpko Hb* (Guaifenesin* DM Syrup) 120 Ml Syrup, 10 ML PO Q4H PRN for COUGH, #60 ML Prov:RENAEJESSICAALICIA [employer] WORKMAN 05/10/15 Follow-up Plan 1. Follow up with your primary care physician in 1 week 2. Use abreva on the lesion on your tongue for relief. Keep well hydrating and call PCP if does not improve over the next few days 3. You were continued on Norvasc for blood pressure control. You should continue on Norvasc and Benazepril but do not take the Chlorthalidone. This may be the reason your sodium has been so low. 4. If symptoms return, please go to your closest emergency department Primary Care Provider Not On Staff Doctor Time spent on discharge: > 30 minutes Pending Labs Laboratory Tests Test 03/07/18 20:55 03/07/18 20:59 03/08/18 04:54 Urine Color STRAW (YELLOW) Urine Clarity CLEAR (CLEAR) Urine pH 7.0 (5.0-9.0) Urine Specific 1.005 (1.003-1.030) [place] Urine Ketones NEGATIVE mg/dL (NEGATIVE) Urine Nitrite NEGATIVE mg/dL (NEGATIVE) Urine Bilirubin NEGATIVE mg/dL (NEGATIVE) Urine Urobilinogen NEGATIVE mg/dL (NEGATIVE) Urine Leukocyte NEGATIVE Tyra/ul Esterase Urine Microscopic 0 /HPF (0-5) RBC Urine Microscopic 1 /HPF (0-5) WBC Urine Hemoglobin 1+ mg/dL (NEGATIVE) Urine Osmolality 191 mOsm/kg (250-1200) Urine Random 14 mmol/L (30-90) Sodium Urine Glucose NEGATIVE mg/dL (NEGATIVE) Urine Total NEGATIVE Protein mg/dl (NEGATIVE) Sodium Level 135 138 mmol/L (135-144) mmol/L (135-144) Potassium Level 3.9 3.7 mmol/L (3.5-5.1) mmol/L (3.5-5.1) Chloride Level 101 103 mmol/L (97-110) mmol/L (97-110) Carbon Dioxide 26 mmol/L (21-31) 26 mmol/L (21-31) Level Anion Gap 8 (5-13) 9 (5-13) Blood Urea 17 mg/dl (7-20) 14 mg/dl (7-20) Nitrogen Creatinine 0.69 0.67 mg/dl (0.44-1.00) mg/dl (0.44-1.00) Est Glomerular mL/min (>60) mL/min (>60) Filtrat Rate mL/min Glucose Level 89 mg/dl (70-220) 89 mg/dl (70-220) Calcium Level 9.1 8.9 mg/dl (8.4-10.2) mg/dl (8.4-10.2) Magnesium Level 2.3 mg/dl (1.7-2.5) Total Bilirubin 0.5 mg/dl (0.2-1.3) Direct Bilirubin 0.00 mg/dl (0.00-0.20) Indirect Bilirubin 0.5 mg/dl (0-1.1) Aspartate Amino 38 IU/L (15-46) Transf (AST/SGOT) Alanine 43 IU/L (13-69) Aminotransferase (A LT/SGPT) Alkaline 47 IU/L (42-121) Phosphatase Total Protein 6.5 g/dl (6.1-8.1) Albumin 3.8 g/dl (3.3-4.9) Globulin 2.70 g/dl (1.3-3.2) Albumin/Globulin 1.40 Ratio MARI WALKER MD Mar 08, 2018 17:45
== END 2018-03-08 14:12 | disposition home or self-care (01) | DRG 641 ==
LOC: E/R 18:03 → 6WM 03-07 02:29
PROVIDERS: ADMIT Family Medicine; ATTEND Internal Medicine
DX: E87.1 Hypo-osmolality and hyponatremia (principal); E87.6 Hypokalemia; I10 Essential (primary) hypertension; R00.2 Palpitations; S00.512A Abrasion of oral cavity, initial encounter
CPT/HCPCS: 36415; 70450; 71045; 80048; 80053; 80061; 81001; 83036; 83735; 83880; 83930; 83935; 84300; 84443; 84484; 85025; 93005; 96374; J2060; J3475; J3480; J7030

== ENCOUNTER 2018-05-08 20:29 | Emergency (ER) | payer MEDICARE, OTHER ==
[~2018-05-08] VITALS: Ht 154.9 cm; Wt 49.0 kg
[~2018-05-08 20:29] MED LIST changes: -CHLO25TA2 PO; +DOCO2CRE3 TOP; -GUAI120S26 PO
[2018-05-08 21:07] VITALS: Ht 154.9 cm; Wt 49.0 kg
--- NOTE | 2018-05-09 00:28 | ERD ---
ER Documentation Chief Complaint Chief Complaint high bp HPI The patient is a 72-year-old female, presenting to the ER because she took her blood pressure at 4 PM, systolic blood pressure was 160 she was therefore nervous and wanted to go to the ER. Her usual systolic blood pressure is around 140. She denies headache, dizziness, syncope, near syncope, neck pain, chest pain, dyspnea, abdominal pain, vomiting, dizzy, diarrhea. She does not smoke or drink Medical history: Hypertension Past surgical history: None ROS All systems reviewed and are negative except as per history of present illness. Medications Home Meds Active Scripts Docosanol (Abreva) 2 Gm Cream.gm., 1 APPLIC TOP 5 TIMES DAILY for lesion on tongue, #1 TUB Prov:MARI WALKER MD 03/08/18 Amlodipine Besylate* (Amlodipine Besylate*) 5 Mg Tablet, 5 MG PO BID, #180 TAB Prov:KRISTEN MOLINA MD 06/27/16 Cetirizine Hcl* (Zyrtec*) 10 Mg Capsule, 10 MG PO DAILY, #30 TAB.CHEW Prov:ALICIA GALARZA NP 05/10/15 Ibuprofen* (Motrin*) 600 Mg Tab, 600 MG PO Q6H PRN for PAIN AND OR ELEVATED TEMP, #30 TAB Prov:ALICIA GALARZA NP 05/10/15 Reported Medications Benazepril Hcl* (Benazepril Hcl*) Unknown Strength Tablet, PO DAILY, #30 TAB 05/10/15 Allergies Allergies: Coded Allergies: No Known Allergy (Unverified , 05/10/15) PMhx/Soc History of Surgery: Yes (MOLE REMOVAL) Anesthesia Reaction: No Hx Neurological Disorder: No Hx Respiratory Disorders: No Hx Cardiac Disorders: Yes (HTN) Hx Psychiatric Problems: No Hx Miscellaneous Medical Probl: No Hx Alcohol Use: No Hx Substance Use: No Hx Tobacco Use: No Smoking Status: Never smoker Physical Exam Vitals Vital Signs Date Temp Pulse Resp B/P (MAP) Pulse Ox O2 O2 Flow FiO2 Time Delivery Rate 05/09/18 96.9 52 18 111/64 99 Room Air 01:44 (80) 05/09/18 53 18 123/68 100 Room Air 01:01 (86) 05/08/18 96.9 55 18 120/72 99 21:07 (88) Physical Exam Const: No acute distress. Head: Atraumatic. Eyes: Normal Conjunctiva. ENT: Normal External Ears, Nose and Mouth. Neck: Full range of motion. No meningismus. Resp: Clear to auscultation bilaterally. Cardio: Regular rate and rhythm. Abd: Soft, non distended, normal bowel sounds, non tender. Skin: No petechiae or rashes. Back: No midline or flank tenderness. Ext: No cyanosis, or edema. Neur: Awake and alert. No focal deficit Psych: Normal Mood and Affect. Result Diagram: 05/09/189905/09/1899 Results 24 hrs Laboratory Tests Test 05/09/18 01:00 White Blood Count 4.5 10^3/ul Red Blood Count 4.01 10^6/ul Hemoglobin 12.1 g/dl Hematocrit 35.6 % Mean Corpuscular Volume 88.8 fl Mean Corpuscular Hemoglobin 30.2 pg Mean Corpuscular Hemoglobin Concent 34.0 g/dl Red Cell Distribution Width 11.8 % Platelet Count 235 10^3/UL Mean Platelet Volume 8.5 fl Immature Granulocytes % 0.400 % Neutrophils % 42.8 % Lymphocytes % 34.1 % Monocytes % 19.1 % Eosinophils % 2.9 % Basophils % 0.7 % Nucleated Red Blood Cells % 0.0 /100WBC Immature Granulocytes # 0.020 10^3/ul Neutrophils # 1.9 10^3/ul Lymphocytes # 1.5 10^3/ul Monocytes # 0.9 10^3/ul Eosinophils # 0.1 10^3/ul Basophils # 0.0 10^3/ul Nucleated Red Blood Cells # 0.0 10^3/ul Prothrombin Time 11.9 Sec Prothrombin Time Ratio 0.9 INR International Normalized Ratio 0.87 Activated Partial Thromboplast Time 28.5 Sec Sodium Level 132 mmol/L Potassium Level 3.1 mmol/L Chloride Level 93 mmol/L Carbon Dioxide Level 29 mmol/L Anion Gap 10 Blood Urea Nitrogen 21 mg/dl Creatinine 0.69 mg/dl Est Glomerular Filtrat Rate mL/min mL/min Glucose Level 96 mg/dl Calcium Level 9.8 mg/dl Current Medications Medications Dose Sig/Tri Start Time Status Last (Trade) Ordered Route PRN Stop Time Admin Dose Reason Admin Potassium 40 meq ONCE ONCE 05/09/18 Chloride PO 02:33 (Klor-Con 20) 05/09/18 02:34 Procedures/MDM MEDICAL MAKING DECISION: The patient is a 72-year-old female, presenting with chronic hypertension, acute anxiety acute hypokalemia. She was treated with potassium chloride 40 mEq p.o. for acute hypokalemia with good response. Her blood pressure has normalized and she denies any symptom, she is stable for outpatient follow-up The differential diagnoses considered include but are not limited to medical noncompliance, dietary noncompliance, anxiety attack, panic attack Departure Diagnosis: Primary Impression: HTN (hypertension) Additional Impressions: Hypokalemia Leukopenia Condition: Good Comments I discussed the findings with the patient. I advised the patient to follow-up with the primary physician in about 2-3 days, sooner if needed and return if any concern. Disclaimer: Inadvertent spelling and grammatical errors are likely due to EHR/dictation software use and do not reflect on the overall quality of patient care. Also, please note that the electronic time recorded on this note does not necessarily reflect the actual time of the patient encounter. ALVA MARROQUIN MD May 09, 2018 00:28
[2018-05-09] MEDS ORDERED: POTASSIUM CHLORIDE (SR) 20 MEQ TAB PO ONE (02:33)
[2018-05-09 02:50] VITALS: BP 104/65; PULSE 53; RESP 18
== END 2018-05-09 02:50 | disposition home or self-care (01) ==
LOC: E/R 20:29
DX: I10 Essential (primary) hypertension (principal); E87.6 Hypokalemia; D72.819 Decreased white blood cell count, unspecified
CPT/HCPCS: 36415; 80048; 85025; 85610; 85730; 99283

== ENCOUNTER 2018-05-12 05:46 | Emergency (ER) | payer MEDICARE, OTHER ==
[~2018-05-12] VITALS: Ht 153.7 cm; Wt 48.4 kg
[2018-05-12 05:50] VITALS: Ht 153.7 cm; Wt 48.4 kg
[2018-05-12] MEDS ORDERED: SOD CHLORIDE 0.9% 1,000 ML IV STA (06:46)
[2018-05-12] MEDS ORDERED: SOD CHLORIDE 0.9% 100 ML ONE (07:47)
[2018-05-12] MEDS ORDERED: IOHEXOL 100 ML ONE (07:47)
[2018-05-12] MEDS ORDERED: IOHEXOL 350MG/ML 50 ML BTL ONE (07:47)
--- NOTE | 2018-05-12 08:13 | ERD ---
ER Documentation Chief Complaint Chief Complaint fluctuating BP@home x 2 days;R nape pains,denies 1 now;hx HTN on pills HPI This is a 72-year-old pleasant female with a history of hypertension who presents with labile blood pressure over the last several days. The patient states compliance with her medication and diet. Occasionally when she gets her headache she gets migratory pain to the right neck and occipital head. She does describe this is a chronic issue but persistence of symptoms prompted repeat visit to the emergency room. She denies a ripping or tearing sensation, no other neurologic deficits including slurred speech or ataxic gait. Patient only has mild symptoms currently likely 1 out of 10. She denies any chest pain or pressure or exertional symptoms. ROS All systems reviewed and are negative except as per history of present illness. Medications Home Meds Active Scripts Docosanol (Abreva) 2 Gm Cream.gm., 1 APPLIC TOP 5 TIMES DAILY for lesion on t ongue, #1 TUB Prov:MARI WALKER MD 03/08/18 Amlodipine Besylate* (Amlodipine Besylate*) 5 Mg Tablet, 5 MG PO BID, #180 TAB Prov:KRISTEN MOLINA MD 06/27/16 Cetirizine Hcl* (Zyrtec*) 10 Mg Capsule, 10 MG PO DAILY, #30 TAB.CHEW Prov:ALICIA GALARZA NP 05/10/15 Ibuprofen* (Motrin*) 600 Mg Tab, 600 MG PO Q6H PRN for PAIN AND OR ELEVATED TEMP, #30 TAB Prov:ALICIA GALARZA NP 05/10/15 Reported Medications Benazepril Hcl* (Benazepril Hcl*) Unknown Strength Tablet, PO DAILY, #30 TAB 05/10/15 Allergies Allergies: Coded Allergies: No Known Allergy (Unverified , 05/10/15) PMhx/Soc History of Surgery: Yes (MOLE REMOVAL) Anesthesia Reaction: No Hx Neurological Disorder: No Hx Respiratory Disorders: No Hx Cardiac Disorders: Yes (HTN) Hx Psychiatric Problems: No Hx Miscellaneous Medical Probl: No Hx Alcohol Use: No Hx Substance Use: No Hx Tobacco Use: No Smoking Status: Never smoker FmHx Family History: No diabetes Physical Exam Vitals Vital Signs Date Temp Pulse Resp B/P (MAP) Pulse Ox O2 O2 Flow FiO2 Time Delivery Rate 05/12/18 55 12 120/74 100 Room Air 07:23 (89) 05/12/18 Nasal 2 07:02 Cannula 05/12/18 97.9 68 18 117/68 100 05:50 (84) Physical Exam General: Well developed, well nourished, no acute distress Head: Normocephalic, atraumatic. Eyes: Pupils equally reactive, EOM intact ENT: Moist mucous membranes Neck: Supple, no lymphadenopathy Respiratory: Lungs clear bilaterally, no distress Cardiovascular: RRR, no murmurs, rubs, or gallops Abdominal: Soft, non-tender, non-distended, no peritoneal signs : Deferred MSK: No edema, no unilateral swelling, 5/5 strength Neurologic: Alert and oriented, moving all extremities, normal speech, no focal weakness, no cerebellar signs Skin: No rash Psych: Normal mood Result Diagram: 05/12/18 0703 05/12/18 0703 Results 24 hrs Laboratory Tests Test 05/12/18 07:03 White Blood Count 3.4 10^3/ul Red Blood Count 4.19 10^6/ul Hemoglobin 12.8 g/dl Hematocrit 38.0 % Mean Corpuscular Volume 90.7 fl Mean Corpuscular Hemoglobin 30.5 pg Mean Corpuscular Hemoglobin Concent 33.7 g/dl Red Cell Distribution Width 11.9 % Platelet Count 260 10^3/UL Mean Platelet Volume 8.5 fl Immature Granulocytes % 0.600 % Neutrophils % 52.4 % Lymphocytes % 32.4 % Monocytes % 11.1 % Eosinophils % 2.6 % Basophils % 0.9 % Nucleated Red Blood Cells % 0.0 /100WBC Immature Granulocytes # 0.020 10^3/ul Neutrophils # 1.8 10^3/ul Lymphocytes # 1.1 10^3/ul Monocytes # 0.4 10^3/ul Eosinophils # 0.1 10^3/ul Basophils # 0.0 10^3/ul Nucleated Red Blood Cells # 0.0 10^3/ul Sodium Level 135 mmol/L Potassium Level 3.3 mmol/L Chloride Level 95 mmol/L Carbon Dioxide Level 29 mmol/L Anion Gap 11 Blood Urea Nitrogen 21 mg/dl Creatinine 0.80 mg/dl Est Glomerular Filtrat Rate mL/min mL/min Glucose Level 104 mg/dl Calcium Level 9.7 mg/dl Troponin I < 0.012 ng/ml Current Medications Medications Dose Sig/Tri Start Time Status Last (Trade) Ordered Route PRN Stop Time Admin Dose Reason Admin Sodium 1,000 ml @ Q1H STAT 05/12/18 DC 05/12/18 Chloride 1,000 mls/hr IV 06:46 05/12/18 07:15 07:45 IV Flush 10 ml STK-MED 05/12/18 DC (NS 10 ml) ONCE .ROUTE 07:47 05/12/18 07:48 Sodium 100 ml @ ud STK-MED 05/12/18 DC Chloride ONCE .ROUTE 07:47 05/12/18 07:48 Iohexol 100 ml @ ud STK-MED 05/12/18 DC ONCE .ROUTE 07:47 05/12/18 07:48 Iohexol 50 ml STK-MED 05/12/18 DC (Omnipaque ONCE .ROUTE 07:47 05/12/18 350mg/ ml) 07:48 Procedures/MDM EKG, MONITORS, & DIAGNOSTIC IMAGING: EKG: I reviewed and interpreted a 12-lead EKG. Rhythm: Normal sinus rhythm ST Changes: No contiguous ST segment elevations T waves: No contiguous T wave inversions Impression: [No evidence of acute cardiac ischemia] CT brain: IMPRESSION: 1. No evidence of acute intracranial pathology. 2. Mild diffuse atrophy. 3. Minimal microvascular ischemic disease in the periventricular white matter. 4. 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 CTA head and neck: IMPRESSION: 1. 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 2. 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 3. Minimal atherosclerotic plaque of the right internal carotid artery. 4. No evidence of a cervical carotid artery stenosis or narrowing based on NASCET criteria. A call report was made to Sergio Gautam on 05/12/2018 8:30 AM following completion of the examination by Dr. Goins. RPTAT: [facility] INTERPRETATION: I reviewed the laboratory testing and it shows [no evidence of acute process] MEDICAL DECISION MAKING: The patient presents to the emergency room with labile blood pressure, neck pain and head pain. This is likely consistent with her symptoms related to hy pertension and hypertensive urgency. I have a lower clinical concern for hypertensive emergency. She exhibits no signs or symptoms concerning for acute coronary syndrome. I doubt this consistent with stroke or intracranial hemorrhage. Patient does have a neck component. While unlikely, consideration for possible dissection would be reasonable. Given the patient's repeat visit CTA of the head and neck would be appropriate. Reassurance provided and the patient was advised to follow-up with primary care physician. She is taking her blood pressure a significant number of times throughout the day she was advised to limit that to 3 if she is not having any symptoms. ER COURSE: * The patient CTA shows evidence of 2 aneurysms as documented above. The patient has no significant headache, no sudden onset of headache and no clinical signs or symptoms at this time concerning for a ruptured aneurysm or subarachnoid hemorrhage. I do not believe lumbar puncture is indicated at this time. * Likely incidental and unclear if they are truly related to the patient's neck discomfort however they are significant in size and multiple. For this reason I spoke to my neurosurgeon pest control operator, Dr. small around 8:40 AM. He recommends that this patient is transferred to a comprehensive center for further evaluation and possible intervention. * I was able speak to Dr. Keen at 8:44 AM at [facility] who agrees with the plan and will accept the patient for further definitive management and admission at [facility] . * The family was informed. The patient became anxious. She did describe very intermittent left lower quadrant abdominal pain but has a benign exam. This is possibly stress and anxiety related. A small dose of pain medication was provided. I do not believe the patient's abdominal pain is related to acute vascular process and seems unrelated to the cerebral aneurysms. Continue to monitor. CONSULTATION: Neurosurgery: Dr. Patel as documented above DISPOSITION PLAN: Transfer to [facility] for further definitive management of cerebral aneurysms Departure Diagnosis: Primary Impression: Cerebral aneurysm without rupture Additional Impression: Hypertensive urgency Condition: Stable SERGIO LOZANO MD May 12, 2018 08:13
[2018-05-12] MEDS ORDERED: morphine 4 MG/ML VIAL IV STA (09:13)
[2018-05-12] MEDS ORDERED: ONDANSETRON 4 MG INJ IV STA (09:13)
[2018-05-12 09:53] VITALS: BP 120/79; PULSE 69; RESP 12
== END 2018-05-12 11:08 | disposition home or self-care (01) ==
LOC: E/R 05:46
DX: I67.1 Cerebral aneurysm, nonruptured (principal); I10 Essential (primary) hypertension; I16.0 Hypertensive urgency
CPT/HCPCS: 36415; 70450; 70496; 70498; 80048; 84484; 85025; 93005; 99285; J7030; Q9967; J2270; J2405

== ENCOUNTER 2018-05-16 23:45 | Inpatient (IN) | payer MEDICARE, OTHER ==
[~2018-05-16] VITALS: Ht 124.5 cm; Wt 47.5 kg
--- NOTE | 2018-05-17 00:44 | ERD ---
ER Documentation Chief Complaint Chief Complaint C/O MARTINEZ; FAMILY MEMBER STATES PT IS "TALKING DIFFERENTLY". NO ALOC. HPI The patient is a 72-year-old female, presenting to the ER because her blood pressure was elevated around 11 PM, 180/90. She feels as if her blood pressure was high; therefore, she took her BP. Her nephew also noted her speech is different. She complains of 5/10 right sided occipital frontal headache, had similar headache previously. She denies blurred vision, facial pain, neck pain, chest pain, dyspnea, abdominal pain, vomiting, dysuria. She does not smoke or drink She was seen in the ER on May 12, [address] of the brain that showed small unruptured aneurysm, was then transferred to [facility] and did not have any intervention and was discharged on May 14, 2018 with outpatient f/u. Medical history: Hypertension Past surgical history: None ROS All systems reviewed and are negative except as per history of present illness. Medications Home Meds Reported Medications Metoprolol Succinate* (Toprol XL*) 100 Mg Tab.sr.24h, 100 MG PO QAM, #30 TAB 05/17/18 Calcium Citrate/Vitamin D (Citracal-Vitamin D 200 MG-250) 1 Each Tablet, 1 EACH PO DAILY, TAB 05/17/18 Clonidine Hcl* (Clonidine Hcl*) 0.1 Mg Tab, 0.1 MG PO BID PRN for ELEVATED BLOOD PRESSURE, TAB 05/17/18 Benazepril Hcl* (Benazepril Hcl*) 5 Mg Tablet, 5 MG PO DAILY, #30 TAB 05/17/18 Discontinued Reported Medications Benazepril Hcl* (Benazepril Hcl*) Unknown Strength Tablet, PO DAILY, #30 TAB 05/10/15 Discontinued Scripts Docosanol (Abreva) 2 Gm Cream.gm., 1 APPLIC TOP 5 TIMES DAILY for lesion on tongue, #1 TUB Prov:MARI WALKER MD 03/08/18 Amlodipine Besylate* (Amlodipine Besylate*) 5 Mg Tablet, 5 MG PO BID, #180 TAB Prov:KRISTEN MOLINA MD 06/27/16 Cetirizine Hcl* (Zyrtec*) 10 Mg Capsule, 10 MG PO DAILY, #30 TAB.CHEW Prov:ALICIA GALARZA NP 05/10/15 Ibuprofen* (Motrin*) 600 Mg Tab, 600 MG PO Q6H PRN for PAIN AND OR ELEVATED TEMP, #30 TAB Prov:ALICIA GALARZA YONATHAN 05/10/15 Allergies Allergies: Coded Allergies: No Known Allergy (Unverified , 05/10/15) PMhx/Soc History of Surgery: Yes (MOLE REMOVAL) Anesthesia Reaction: No Hx Neurological Disorder: No Hx Respiratory Disorders: No Hx Cardiac Disorders: Yes (HTN) Hx Psychiatric Problems: No Hx Miscellaneous Medical Probl: No Hx Alcohol Use: No Hx Substance Use: No Hx Tobacco Use: No Physical Exam Vitals Vital Signs Date Temp Pulse Resp B/P (MAP) Pulse Ox O2 O2 Flow FiO2 Time Delivery Rate 05/17/18 97.6 53 12 107/82 100 Room Air 04:35 (90) 05/17/18 97.9 53 13 117/66 100 Room Air 03:10 (83) 05/17/18 98.5 56 13 132/79 100 Room Air 01:23 (96) 05/16/18 97.3 59 18 141/61 100 23:52 (87) Physical Exam Const: No acute distress. Head: Atraumatic. Eyes: Normal Conjunctiva. ENT: Normal External Ears, Nose and Mouth. Neck: Full range of motion. No meningismus. Resp: Clear to auscultation bilaterally. Cardio: Regular rate and rhythm. Abd: Soft, non distended, normal bowel sounds, non tender. Skin: No petechiae or rashes. Back: No midline or flank tenderness. Ext: No cyanosis, or edema. Neur: Awake and alert. No focal deficit Psych: Normal Mood and Affect. Result Diagram: 05/17/189905/17/1899 Results 24 hrs Laboratory Tests Test 05/17/18 01:00 White Blood Count 4.4 10^3/ul Red Blood Count 3.81 10^6/ul Hemoglobin 11.6 g/dl Hematocrit 33.3 % Mean Corpuscular Volume 87.4 fl Mean Corpuscular Hemoglobin 30.4 pg Mean Corpuscular Hemoglobin Concent 34.8 g/dl Red Cell Distribution Width 11.4 % Platelet Count 240 10^3/UL Mean Platelet Volume 8.4 fl Immature Granulocytes % 0.200 % Neutrophils % 53.4 % Lymphocytes % 29.8 % Monocytes % 14.5 % Eosinophils % 1.4 % Basophils % 0.7 % Nucleated Red Blood Cells % 0.0 /100WBC Immature Granulocytes # 0.010 10^3/ul Neutrophils # 2.4 10^3/ul Lymphocytes # 1.3 10^3/ul Monocytes # 0.6 10^3/ul Eosinophils # 0.1 10^3/ul Basophils # 0.0 10^3/ul Nucleated Red Blood Cells # 0.0 10^3/ul Prothrombin Time 12.6 Sec Prothrombin Time Ratio 1.0 INR International Normalized Ratio 0.93 Activated Partial Thromboplast Time 30.1 Sec Sodium Level 128 mmol/L Potassium Level 3.2 mmol/L Chloride Level 89 mmol/L Carbon Dioxide Level 28 mmol/L Anion Gap 11 Blood Urea Nitrogen 14 mg/dl Creatinine 0.71 mg/dl Est Glomerular Filtrat Rate mL/min mL/min Glucose Level 101 mg/dl Calcium Level 9.2 mg/dl Current Medications Medications Dose Sig/Tri Start Time Status Last (Trade) Ordered Route PRN Stop Time Admin Dose Reason Admin Sodium 100 ml @ ud STK-MED 05/17/18 DC 05/17/18 Chloride ONCE .ROUTE 02:24 05/17/18 02:28 02:25 Iohexol 150 ml STK-MED 05/17/18 DC 05/17/18 (Omnipaque ONCE .ROUTE 02:25 05/17/18 02:27 300mg/ ml) 02:26 650 mg ONCE ONCE 05/17/18 DC 05/17/18 Acetaminophen PO 04:00 05/17/18 03:47 (Tylenol 04:01 Tab) Potassium 40 meq ONCE ONCE 05/17/18 Chloride PO 05:00 05/17/18 (Klor-Con 20) 05:01 Procedures/[place] [id number] Radiology Main Line: [phone] DIAGNOSTIC IMAGING REPORT Patient: YADIRA MALIN : 1945 Age: 73 Sex: F MR #: [id number] DOS: 05/17/18 0304 Ordering MD: ALVA MARROQUIN MD Location: E/R Room/Bed: PROCEDURE: MR Brain without contrast. CLINICAL INDICATION: Worsening headaches, questionable hemorrhage prior CT. TECHNIQUE: Multiplanar multisequence MRI of the brain was performed. No intravenous contrast was administered. COMPARISON: CT from the same day. FINDINGS: There is no evidence of recent infarction diffusion weighted imaging. There is no hydrocephalus, midline shift or evidence for acute intracranial hemorrhage. The flow voids are present within the major intracranial vessels, compatible with patency. . There is no discrete sulcal FLAIR signal hyperintensity identified. There is no definite FLAIR signal abnormality seen or may be seen with the left occipital horn to correspond to the abnormality on recent CT. There is mild nonspecific white matter FLAIR signal hyperintensity, likely on the basis of chronic microvascular ischemic change. There is age-related involutional change. The sella and parasellar regions are unremarkable. The orbital contents are within normal limits. The visualized paranasal sinuses and mastoid air cells are clear. Craniocervical junction is unremarkable. IMPRESSION: No definite MR evidence for intraventricular hemorrhage to correspond to the abnormality identified on recent CT. No discrete sulcal FLAIR signal abnormality is seen on the current exam. Mild nonspecific white matter FLAIR signal intensities likely on the basis of chronic microvascular ischemic change. In this patient with a history of worsening headaches and no new aneurysms if the patient's symptoms persist short-term repeat examination should be considered. Findings were discussed with Dr. Bahena on 05/17/2018 at 04:45 a.m. RPTAT: HAP iternestina Vega Physician Date Time Electronically viewed and signed by Sara Vega, Physician on 05/17/2018 04:54 AP/ CC: ALVA MARROQUIN MD [id number] [place] [address] Radiology Main Line: [phone] DIAGNOSTIC IMAGING REPORT Patient: YADIRA MALIN : 1945 Age: 73 Sex: F MR #: [id number] DOS: 05/17/18 0103 Ordering MD: ALVA MARROQUIN MD Location: E/R Room/Bed: PROCEDURE: CTA head and neck. CLINICAL INDICATION: Worsening headaches, known history of aneurysms. TECHNIQUE: The study was performed utilizing a multidetector CT scanner. Direct thin section helical 0.625 mm axial sections were obtained through the head and neck after the uneventful administration of 100 cc of Omnipaque-300 nonionic intravenous contrast material. Coronal and sagittal as well as maximal intensity projection reformations were obtained. The total CTDIvol is 55 mGy and the DLP is 430 mGy-cm. 3D MIP imaging was performed DICOM images are available. One or more of the following dose reduction techniques were utilized: 1.) Automated exposure control 2.) Adjustment of the mA +/- kV according to patient's size 3.) Use of iterative reconstruction technique. COMPARISON: CT BRAIN 05/17/2018 CT angiogram from 05/12/2018 FINDINGS: CTA NECK: Aortic arch: Patent. There are mild atherosclerotic changes of the aorta. Subclavian arteries: Patent. Vertebral arteries: Patent. Right common carotid artery: Patent. Right internal carotid artery: Patent. Right external carotid artery: Patent. Left common carotid artery: Patent. Left internal carotid artery: Patent. Left external carotid artery: Patent. CTA BRAIN: Right anterior circulation: The high cervical, petrous, cavernous, supraclinoid segments of the internal carotid artery are patent without evidence for high-grade stenosis or focal occlusion. Is mild atherosclerotic plaque along the cavernous segment. The middle cerebral is patent and no vascular aneurysm is seen. The right anterior cerebral artery is patent. Left anterior circulation: The high cervical, petrous, cavernous, supraclinoid segments of the internal carotid artery are patent without evidence for high-grade stenosis or focal occlusion. There is redemonstration of a saccular aneurysm projecting medially off of the cavernous segment of the left internal carotid artery. This measures 7.8 x 6.7 x 6.1 mm. The middle cerebral is patent and no vascular aneurysm is seen. There is redemonstration of a small anterior communicating artery aneurysm, which appears to project inferiorly is located at the level of the left A1-A2 junction. This measures approximately 2.4 x 2.3 mm. Posterior circulation: The intracranial vertebral arteries, basilar artery, and posterior cerebral arteries are patent without high-grade stenosis or focal occlusion. No vascular aneurysm is seen. There are bilateral low attenuation thyroid nodules. 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 Overall size and appearance is grossly stable since prior examination. No evidence for high-grade stenosis or focal occlusion of the cervical vasculature utilizing NASCET criteria. Correlate with prior noncontrast CT of the brain for the remainder of the findings. RPTAT: HAP Admit-r Pal, Physician Date Time Electronically viewed and signed by Admit-r Gary, Physician on 05/17/2018 03:26 AP/ CC: ALVA MARROQUIN MD [id number] [place] [address] Radiology Main Line: [phone] DIAGNOSTIC IMAGING REPORT Patient: YADIRA MALIN : 1945 Age: 73 Sex: F MR #: [id number] DOS: 05/17/18 0101 Ordering MD: ALVA MARROQUIN MD Location: E/R Room/Bed: PROCEDURE: CT Brain without contrast. CLINICAL INDICATION: Headaches. Known history of aneurysms. TECHNIQUE: Noncontrast axial sections were obtained from the skull base to the vertex without IV contrast. Multiplanar reformatted images were constructed. The CTDIvol is 40 mGy and the DLP is 634 mGycm. DICOM images are available. One or more of the following dose reduction techniques were utilized: 1.) Automated exposure control 2.) Adjustment of the mA +/- kV according to patient's size 3.) Use of iterative reconstruction technique. COMPARISON: CT from 05/12/2018 FINDINGS: There is no hydrocephalus or midline shift. Spaulding white differentiation is preserved and there is no CT evidence for acute territorial infarction. Basilar cisterns are grossly patent. There appears to be effacement of the left occipital horn, which is new since the prior examination. There is involutional change. There is mild chronic microvascular ischemic change. There are no depressed calvarial fractures. Visualized paranasal sinuses and mastoid air cells are well-aerated. IMPRESSION: Subtle effacement of the left occipital horn is new since the prior examination. Although findings may be technical in nature the presence of a small amount of intraventricular hemorrhage is excluded given the worsening symptoms a known history of aneurysms. Correlation with MRI should be obtained for further evaluation. Findings were discussed with Dr. Marroquin on 05/17/2018 at 03:00 a.m. RPTAT: HAP Admit-r Pal, Physician Date Time Electronically viewed and signed by Admit-r Gary, Physician on 05/17/2018 03:13 AP/ CC: ALVA MARROQUIN MD [id number] Consultation: I discussed the patient with the on-call neurologist Dr Draper at [facility] who received the patient on May 12, 2018 transfer. She was made aware of the CT scan of the brain, the CTA of the brain/neck and the MRI of the brain. She recommended outpatient follow-up with neurology as scheduled at [facility] MEDICAL MAKING DECISION: The patient is a 73-year-old female, presenting with recurrent headache, acute hypo-natremia, acute-hypokalemia. She was treated with potassium chloride 40 mcg p.o. for acute hypokalemia The differential diagnoses considered include but are not limited to electrolyte imbalance, ruptured aneurysm, subarachnoid hemorrhage, occult trauma, CVA, meningitis, encephalitis, hypertension, tension, migraine, cluster, narcotic withdrawal, cervical spine disease. Departure Diagnosis: Primary Impression: Hyponatremia Additional Impressions: Hypokalemia Headache Anemia Leukopenia Condition: Stable Comments I discussed the findings with the patient. I discussed the patient with the hospitalist Dr Yu at 5 am . who was made aware of the lab, the treatment, the patient condition. The patient is admitted to [facility] Disclaimer: Inadvertent spelling and grammatical errors are likely due to EHR/dictation software use and do not reflect on the overall quality of patient care. Also, please note that the electronic time recorded on this note does not necessarily reflect the actual time of the patient encounter. ALVA MARROQUIN MD May 17, 2018 00:44
[2018-05-17] MEDS ORDERED: SOD CHLORIDE 0.9% 100 ML ONE (02:24)
[2018-05-17] MEDS ORDERED: IOHEXOL 300MG/ML 150 ML BTL ONE (02:25)
[2018-05-17] MEDS ORDERED: BENA5TAB33 PO (03:52)
[2018-05-17] MEDS ORDERED: CLON-379 PO (03:52)
[2018-05-17] MEDS ORDERED: CALC-143 PO (03:54)
[2018-05-17] MEDS ORDERED: METO-336 PO (03:54)
[2018-05-17] MEDS ORDERED: ACETAMINOPHEN 325 MG TAB PO ONE (04:00)
[2018-05-17] MEDS ORDERED: POTASSIUM CHLORIDE (SR) 20 MEQ TAB PO ONE (05:00)
[2018-05-17] MEDS ORDERED: NACL 0.9% 3 ML SYG IV SCH ×2 (05:30→13:30)
[2018-05-17] MEDS ORDERED: ONDANSETRON 4 MG INJ IV PRN (05:30)
[2018-05-17] MEDS ORDERED: ACETAMINOPHEN 325 MG TAB PO PRN (05:30)
[2018-05-17] MEDS ORDERED: DOCUSATE SODIUM 100 MG CAP PO PRN ×2 (05:30→13:30)
[2018-05-17] MEDS ORDERED: SOD CHLORIDE 0.9% 1,000 ML IV SCH (05:30)
[2018-05-17] MEDS ORDERED: BISACODYL (EC) 5 MG TAB PO PRN (05:30)
[2018-05-17 13:04] VITALS: Ht 124.5 cm; Wt 47.5 kg
--- NOTE | 2018-05-17 13:16 | HP ---
Date/Time of Note Date/Time of Note DATE: 05/17/18 TIME: 13:16 Assessment/Plan VTE Prophylaxis SCD applied (from Nsg): Yes SCD contraindicated: low risk/ambulating Pharmacological prophylaxis: NA/contraindicated Pharm contraindication: low risk/ambulating Lines/Catheters IV Catheter Type (from Nrsg): Saline Lock Assessment/Plan Hospital Course SUBJECTIVE: Seen and evaluated patient in ER 19. Currently no headache. OBJECTIVE: Vital signs-see below PHYSICAL EXAM: Constitutional: Well-developed, adequately built, lying in bed comfortably. Psych: nl mood/affect, no complaints Head: atraumatic, normocephalic Eyes: nl conjunctiva, nl sclera ENMT: mucosa pink and moist, nl external ears & nose Neck: non-tender, supple Respiratory: clear to auscultation, normal air movement Cardiovascular: nl pulses, regular rate and rhythm Gastrointestinal: non-tender, soft, bowel sounds active in all 4 quadrants. Musculoskeletal/extremities: nl extremities to inspection, motor strength equal bilaterally, no focal deficit. Normal pulses,no cyanosis, no edema. Neurological: Alert oriented 3,nl speech, nl strength Skin: nl turgor ASSESSMENT/PLAN: 73-year-old female with hypertension, brain aneurysm, hyponatremia, here with uncontrolled hypertension and headache. 1. Uncontrolled hypertension -Currently blood pressure is stable. We will resume her home regimen and will closely monitor for any adjustment if needed. 2. Headache in light of hypertension -No acute neurovascular events noted in the imaging. -PRN Tylenol 3. Hyponatremia, chronic -Repeat sodium level is stable. Continue to monitor. 4. Brain aneurysm,chronic -No change from prior study. Continue to monitor. 5. Obesity with BMI 30.7. -Weight reduction advised. Obtain A1c and lipid panel in a.m. DVT prophylaxis: SCDs PUD prophylaxis: Not indicated CODE STATUS: Full code Diet: Regular diet. Rest of the management depend on hospital course. Approximately 60 m spent on this history and physical. Patient was seen in collaboration with Dr. Sahni. Result Diagram: 05/17/18 0100 05/17/18 1243 Results 24hrs Laboratory Tests Test 05/17/18 01:00 05/17/18 07:20 05/17/18 10:23 05/17/18 12:43 White Blood Count 4.4 #L Red Blood Count 3.81 L Hemoglobin 11.6 L Hematocrit 33.3 L Mean Corpuscular 87.4 Volume Mean Corpuscular 30.4 Hemoglobin Mean Corpuscular 34.8 Hemoglobin Concent Red Cell Distribution 11.4 L Width Platelet Count 240 Mean Platelet Volume 8.4 Immature Granulocytes 0.200 % Neutrophils % 53.4 Lymphocytes % 29.8 Monocytes % 14.5 H Eosinophils % 1.4 Basophils % 0.7 Nucleated Red Blood 0.0 Cells % Immature Granulocytes 0.010 # Neutrophils # 2.4 Lymphocytes # 1.3 Monocytes # 0.6 Eosinophils # 0.1 Basophils # 0.0 Nucleated Red Blood 0.0 Cells # Prothrombin Time 12.6 Prothrombin Time Ratio 1.0 INR International 0.93 Normalized Ratio Activated 30.1 Partial Thromboplast Time Sodium Level 128 L 137 135 Potassium Level 3.2 L 4.3 3.9 Chloride Level 89 L 96 L 99 Carbon Dioxide Level 28 32 H 26 Anion Gap 11 9 10 Blood Urea Nitrogen 14 15 15 Creatinine 0.71 0.75 0.69 Est Glomerular Filtrat Rate mL/min Glucose Level 101 100 86 Calcium Level 9.2 9.8 9.6 Bedside Urine pH (LAB) 6.5 Bedside Urine Protein Negative (LAB) Bedside Urine Glucose Negative (UA) Bedside Urine Ketones Negative (LAB) Bedside Urine Blood Trace-lysed H Bedside Urine Nitrite Negative (LAB) Bedside Urine Negative Leukocyte Esterase (L HPI/ROS Admit Date/Time Admit Date/Time May 17, 2018 at 05:01 Hx of Present Illness This is a 72-year-old with a history of hyponatremia, hypertension, brain aneurysm, presented to the emergency room because her blood pressure was elevated last night 180/90 and she was feeling severe headache on the back of her head. Patient denied any speech difficulties, vision changes, focal deficit, numbness, tingling, loss of consciousness, chest pain, palpitation, shortness of breath, fever, chills or other distress. In the emergency room, patient initial pulse rate 59, blood pressure 141/61. Otherwise unremarkable. Labs showed sodium 128, potassium 3.2, hemoglobin 11.6, hematocrit 33.3. Otherwise unremarkable. A brain MRI with no evidence of acute infarct/hemorrhage. There was no evidence of any no new aneurysms. Head CTA showed redemonstration of left cavernous carotid aneurysm with no significant change in size or appearance from prior study. ROS A 12 point review of system was assessed and is negative other than what is mentioned in the HPI. PMH/Family/Social Past Medical History See HPI Medications Current Medications Sodium Chloride 1,000 ml @ 70 mls/hr [id number] IV Last administered on 05/17/18at 07:26; Admin Dose 70 MLS/HR; Start 05/17/18 at 05:30 IV Flush (NS 3 ml) 3 ml PER PROTOCOL IV ; Start 05/17/18 at 05:30 Ondansetron HCl (Zofran Inj) 4 mg Q6H PRN IV NAUSEA/VOMITING; Start 05/17/18 at 05:30 Acetaminophen (Tylenol Tab) 650 mg Q6H PRN PO .PAIN 1-3 OR TEMP; Start 05/17/18 at 05:30 Docusate Sodium (Colace) 100 mg Q12H PRN PO .CONSTIPATION; Start 05/17/18 at 05:30 Bisacodyl (Dulcolax) 5 mg DAILY PRN PO .CONSTIPATION; Start 05/17/18 at 05:30 Benazepril HCl (Lotensin) 5 mg DAILY PO ; Start 05/18/18 at 09:00; Status UNV Clonidine (Catapres) 0.1 mg BID PRN PO ELEVATED BLOOD PRESSURE; Start 05/17/18 at 13:30; Status UNV Metoprolol Succinate (Toprol Xl) 100 mg QAM PO ; Start 05/18/18 at 09:00; Status UNV Miscellaneous Information 1 each DAILY PO ; Start 05/18/18 at 09:00; Status UNV Coded Allergies: No Known Allergy (Unverified , 05/10/15) Past Surgical History None Past Surgical Hx: no surgical history Family History Significant Family History: no pertinent family hx Social History Denied history of alcohol, smoking or illicit drug use. Smoking Status: Never smoker Exam/Review of Systems Vital Signs Vitals Vital Signs Date Temp Pulse Resp B/P (MAP) Pulse Ox O2 O2 Flow FiO2 Time Delivery Rate 05/17/18 49 18 110/69 99 Room Air 12:25 (83) 05/17/18 98.2 09:30 AILYN HOUSE NP May 17, 2018 13:16
[2018-05-17] MEDS ORDERED: morphine 2 MG INJ IV PRN (13:30)
[2018-05-17 13:42] VITALS: PULSE 62
[2018-05-17 15:18] VITALS: BP 140/69; PULSE 59; RESP 18
[2018-05-17 16:17] VITALS: PULSE 56
[2018-05-17 20:00] VITALS: BP 118/63; PULSE 53; PULSE 55; RESP 18
[2018-05-18] VITALS (12 sets, daily range): BP systolic 126–181; BP diastolic 59–95; PULSE 52–82; RESP 18–20
[2018-05-18] MEDS: METOPROLOL (XL) 100 MG TAB PO SCH (08:58)
[2018-05-18] MEDS: CALCIUM/VITAMIN D (500/200) TAB PO SCH (08:58)
[2018-05-18] MEDS ORDERED: BENAZEPRIL 5 MG TAB PO SCH ×2 (09:00→21:00)
--- NOTE | 2018-05-18 13:49 | PN ---
Date/Time of Note Date/Time of Note DATE: 05/18/18 TIME: 13:47 Assessment/Plan VTE Prophylaxis Risk score (from Ns)>0 risk: 3 SCD applied (from [facility] [place] Yes SCD contraindicated: low risk/ambulating Pharmacological prophylaxis: NA/contraindicated Pharm contraindication: low risk/ambulating Lines/Catheters IV C[facility]ter Type ([facility] Saline Lock Assessment/Plan Problems: (1) Essential hypertension Status: Chronic Comment: Adequate control blood pressure. Given the known cerebral aneurysms x2 will increase the ROMY inhibitor slightly and follow carefully. Probable discharge in the morning (2) Aneurysm, cerebral, nonruptured Status: Chronic Comment: Pending neurosurgical consultation as an outpatient. Fortunately stable (3) Headache Status: Resolved Comment: Resolved Result Diagram: 05/18/18 0706 05/18/18 0706 Results 24hrs Laboratory Tests Test 05/17/18 14:50 05/17/18 17:42 05/17/18 20:47 05/18/18 07:06 Sodium Level 137 142 134 L 136 Potassium Level 4.1 3.7 3.7 3.9 Chloride Level 98 96 L 98 99 Carbon Dioxide Level 28 29 28 28 Anion Gap 11 17 H 8 # 9 Blood Urea Nitrogen 14 15 19 14 Creatinine 0.69 0.71 0.89 0.80 Est Glomerular Filtrat Rate mL/min Glucose Level 87 129 # 88 # 81 Calcium Level 9.9 9.4 9.2 9.3 White Blood Count 4.3 L Red Blood Count 3.97 L Hemoglobin 12.1 Hematocrit 35.7 L Mean Corpuscular Volume 89.9 Mean Corpuscular 30.5 Hemoglobin Mean Corpuscular 33.9 Hemoglobin Concent Red Cell Distribution 11.7 Width Platelet Count 263 Mean Platelet Volume 8.6 Immature Granulocytes % 0.200 Neutrophils % 60.6 Lymphocytes % 26.3 Monocytes % 10.8 Eosinophils % 1.2 Basophils % 0.9 Nucleated Red Blood 0.0 Cells % Immature Granulocytes # 0.010 Neutrophils # 2.6 Lymphocytes # 1.1 Monocytes # 0.5 Eosinophils # 0.1 Basophils # 0.0 Nucleated Red Blood 0.0 Cells # Hemoglobin A1c 5.5 Phosphorus Level 2.9 Magnesium Level 2.3 Total Bilirubin 0.4 Direct Bilirubin 0.00 Indirect Bilirubin 0.4 Aspartate Amino 26 Transf (AST/SGOT) Alanine 35 Aminotransferase (ALT/SG PT) Alkaline Phosphatase 51 Total Protein 7.1 Albumin 4.0 Globulin 3.10 Albumin/Globulin Ratio 1.29 Triglycerides Level 56 Cholesterol Level 115 LDL Cholesterol, 56 Calculated HDL Cholesterol 48 Cholesterol/HDL Ratio 2.3 Thyroid Stimulating 2.300 Hormone (TSH) Subjective 24 Hr Interval Summary Free Text/Dictation Pleasant patient who indicates that she is doing well Constitutional: no complaints Respiratory: no complaints Cardiovascular: no complaints Neurologic: other (Indicates no headaches) Exam/Review of Systems Exam Vitals Vital Signs Date Temp Pulse Resp B/P (MAP) Pulse Ox O2 O2 Flow FiO2 Time Delivery Rate 05/18/18 58 12:00 05/18/18 97.7 19 126/59 99 11:22 (81) 05/17/18 Room Air 15:18 Intake and Output 05/17/18 05/17/18 05/18/18 1515:00 23:00 07:00 IntakeIntake Total 880 ml 300 ml BalanceBalance 880 ml 300 ml Constitutional: alert, oriented Respiratory: clear to auscultation, normal air movement Cardiovascular: regular rate and rhythm, nl pulses Gastrointestinal: soft, nl liver, spleen, non-tender Results Results 24hrs Laboratory Tests Test 05/17/18 14:50 05/17/18 17:42 05/17/18 20:47 05/18/18 07:06 Sodium Level 137 142 134 L 136 Potassium Level 4.1 3.7 3.7 3.9 Chloride Level 98 96 L 98 99 Carbon Dioxide Level 28 29 28 28 Anion Gap 11 17 H 8 # 9 Blood Urea Nitrogen 14 15 19 14 Creatinine 0.69 0.71 0.89 0.80 Est Glomerular Filtrat Rate mL/min Glucose Level 87 129 # 88 # 81 Calcium Level 9.9 9.4 9.2 9.3 White Blood Count 4.3 L Red Blood Count 3.97 L Hemoglobin 12.1 Hematocrit 35.7 L Mean Corpuscular Volume 89.9 Mean Corpuscular 30.5 Hemoglobin Mean Corpuscular 33.9 Hemoglobin Concent Red Cell Distribution 11.7 Width Platelet Count 263 Mean Platelet Volume 8.6 Immature Granulocytes % 0.200 Neutrophils % 60.6 Lymphocytes % 26.3 Monocytes % 10.8 Eosinophils % 1.2 Basophils % 0.9 Nucleated Red Blood 0.0 Cells % Immature Granulocytes # 0.010 Neutrophils # 2.6 Lymphocytes # 1.1 Monocytes # 0.5 Eosinophils # 0.1 Basophils # 0.0 Nucleated Red Blood 0.0 Cells # Hemoglobin A1c 5.5 Phosphorus Level 2.9 Magnesium Level 2.3 Total Bilirubin 0.4 Direct Bilirubin 0.00 Indirect Bilirubin 0.4 Aspartate Amino 26 Transf (AST/SGOT) Alanine 35 Aminotransferase (ALT/SG PT) Alkaline Phosphatase 51 Total Protein 7.1 Albumin 4.0 Globulin 3.10 Albumin/Globulin Ratio 1.29 Triglycerides Level 56 Cholesterol Level 115 LDL Cholesterol, 56 Calculated HDL Cholesterol 48 Cholesterol/HDL Ratio 2.3 Thyroid Stimulating 2.300 Hormone (TSH) Medications Medication Current Medications Ondansetron HCl (Zofran Inj) 4 mg Q6H PRN IV NAUSEA/VOMITING; Start 05/17/18 at 05:30 Acetaminophen (Tylenol Tab) 650 mg Q6H PRN PO .PAIN 1-3 OR TEMP; Start 05/17/18 at 05:30 Bisacodyl (Dulcolax) 5 mg DAILY PRN PO .CONSTIPATION; Start 05/17/18 at 05:30 Benazepril HCl (Lotensin) 5 mg DAILY PO Last administered on 05/18/18at 08:59; Admin Dose 5 MG; Start 05/18/18 at 09:00 Clonidine (Catapres) 0.1 mg BID PRN PO SBP ABOVE 170; Start 05/17/18 at 13:30 Metoprolol Succinate (Toprol Xl) 100 mg QAM PO Last administered on 05/18/18at 08:58; Admin Dose 100 MG; Start 05/18/18 at 09:00 Calcium/Vitamin D (Oyster Shell/ Vit-D (500/200)) 1 tab DAILY PO Last administered on 05/18/18at 08:58; Admin Dose 1 TAB; Start 05/18/18 at 09:00 IV Flush (NS 3 ml) 3 ml PER PROTOCOL IV ; Start 05/17/18 at 13:30 Morphine Sulfate (morphine) 2 mg Q4H PRN IV .SEVERE PAIN 7-10; Start 05/17/18 at 13:30 Docusate Sodium (Colace) 100 mg Q12H PRN PO .CONSTIPATION; Start 05/17/18 at 13:30 MARY MALIK MD May 18, 2018 13:49
[2018-05-18] MEDS: BENAZEPRIL 5 MG TAB PO SCH (19:54)
[2018-05-19] VITALS (8 sets, daily range): BP systolic 114–135; BP diastolic 69–79; PULSE 50–61; RESP 16–18
[2018-05-19] MEDS: CALCIUM/VITAMIN D (500/200) TAB PO SCH (08:30)
[2018-05-19] MEDS: BENAZEPRIL 5 MG TAB PO SCH (08:30)
[2018-05-19] MEDS: METOPROLOL (XL) 100 MG TAB PO SCH (08:30)
--- NOTE | 2018-05-19 10:12 | DS ---
Date/Time of Note Date/Time of Note DATE: 05/19/18 TIME: 10:09 Discharge Summary Admission/Discharge Info Admit Date/Time May 17, 2018 at 05:01 Discharge Date/Time May 19 2018 Discharge Diagnosis Hypertension; intracranial cerebral aneurysm; anemia; hypokalemia; hyponatremia Patient Condition: Good Procedures CT current scan brain; CT angiogram cranial; brain MRI; Hx of Present Illness Hx of Present Illness This is a 72-year-old with a history of hyponatremia, hypertension, brain aneurysm, presented to the emergency room because her blood pressure was elevated last night 180/90 and she was feeling severe headache on the back of her head. Patient denied any speech difficulties, vision changes, focal deficit, numbness, tingling, loss of consciousness, chest pain, palpitation, shortness of breath, fever, chills or other distress. In the emergency room, patient initial pulse rate 59, blood pressure 141/61. Otherwise unremarkable. Labs showed sodium 128, potassium 3.2, hemoglobin 11.6, hematocrit 33.3. Otherwise unremarkable. A brain MRI with no evidence of acute infarct/hemorrhage. There was no evidence of any no new aneurysms. Head CTA showed redemonstration of left cavernous carotid aneurysm with no significant change in size or appearance from prior study. Hospital Course Charming woman who was admitted with headache and elevation of blood pressure. Fortunately there was no advancement or sign of any problem with her aneurysms. Blood pressure medication was adjusted and she has done well. She is now stable for discharge home. She is competent has capacity for medical decision making. Home Meds Reported Medications Metoprolol Succinate* (Toprol XL*) 100 Mg Tab.sr.24h, 100 MG PO QAM, #30 TAB 05/17/18 Calcium Citrate/Vitamin D (Citracal-Vitamin D 200 MG-250) 1 Each Tablet, 1 EACH PO DAILY, TAB 05/17/18 Clonidine Hcl* (Clonidine Hcl*) 0.1 Mg Tab, 0.1 MG PO BID PRN for ELEVATED BLOOD PRESSURE, TAB 05/17/18 Benazepril Hcl* (Benazepril Hcl*) 5 Mg Tablet, 5 MG PO DAILY, #30 TAB 05/17/18 Discontinued Reported Medications Benazepril Hcl* (Benazepril Hcl*) Unknown Strength Tablet, PO DAILY, #30 TAB 05/10/15 Discontinued Scripts Docosanol (Abreva) 2 Gm Cream.gm., 1 APPLIC TOP 5 TIMES DAILY for lesion on tongue, #1 TUB Prov:MARI WALKER MD 03/08/18 Amlodipine Besylate* (Amlodipine Besylate*) 5 Mg Tablet, 5 MG PO BID, #180 TAB Prov:KRISTEN MOLINA MD 06/27/16 Cetirizine Hcl* (Zyrtec*) 10 Mg Capsule, 10 MG PO DAILY, #30 TAB.CHEW Prov:ALICIA GALARZA NP 05/10/15 Ibuprofen* (Motrin*) 600 Mg Tab, 600 MG PO Q6H PRN for PAIN AND OR ELEVATED TEMP, #30 TAB Prov:ALICIA GALARZA NP 05/10/15 Follow-up Plan Primary care physician within 1 week, interventional radiology for the aneurysms as already scheduled Primary Care Provider Not On Staff Doctor Time spent on discharge: > 30 minutes MARY MALIK MD May 19, 2018 10:12
--- NOTE | 2018-05-19 10:13 | PDOCDIS ---
Discharge Instructions DIAGNOSIS Discharge Diagnosis Hypertension; intracranial cerebral aneurysm; anemia; hypokalemia; hyponatremia CONDITION [id number] Patient Condition: [id number] Good HOME CARE INSTRUCTIONS: [id number] Diet Instructions: [id number] Reduced Sodium ACTIVITY: [id number] Activity Restrictions: [id number] Slowly Increase Activity FOLLOW UP/APPOINTMENTS Follow-up Plan Primary care physician within 1 week, interventional radiology for the aneurysms as already scheduled MARY MALIK MD May 19, 2018 10:13
[2018-05-19] MEDS ORDERED: BENA5TAB33 PO (10:14)
== END 2018-05-19 14:15 | disposition home or self-care (01) | DRG 305 ==
LOC: E/R 23:45 → TEL 05-17 05:01
PROVIDERS: ADMIT Family Medicine; ATTEND Family Medicine
DX: I10 Essential (primary) hypertension (principal); E87.1 Hypo-osmolality and hyponatremia; I67.1 Cerebral aneurysm, nonruptured; D64.9 Anemia, unspecified; E87.6 Hypokalemia; R51 Headache; E66.9 Obesity, unspecified; Z68.30 Body mass index [BMI] 30.0-30.9, adult; Z71.3 Dietary counseling and surveillance
CPT/HCPCS: 36415; 70450; 70496; 70498; 70551; 80048; 80053; 80061; 81003; 83036; 83735; 84100; 84443; 85025; 85610; 85730; 86592; 86803; 87340; 92610; 97161; J7030; Q9967

== ENCOUNTER 2018-05-30 12:22 | Emergency (ER) | payer MEDICARE, OTHER ==
[~2018-05-30] VITALS: Ht 149.9 cm; Wt 47.9 kg
[~2018-05-30 12:22] MED LIST changes: -AMLO-145 PO; +CALC-143 PO; -CETI10CA PO; +CLON-379 PO; -DOCO2CRE3 TOP; -IBUP-1542 PO; +METO-336 PO
[2018-05-30 12:42] VITALS: Ht 149.9 cm; Wt 47.9 kg
[2018-05-30] MEDS ORDERED: IBUPROFEN 600 MG TAB PO ONE (15:30)
[2018-05-30] MEDS ORDERED: ALPRAZOLAM 0.25 MG TAB PO ONE (15:30)
--- NOTE | 2018-05-30 15:40 | ERD ---
ER Documentation Chief Complaint Chief Complaint htn, dizziness; anxiety, symptoms starting this morning HPI 73-year-old woman here for hypertension and dizziness beginning shortly after us ing her first dose of escitalopram for anxiety. Patient has a long history of anxiety and hypertension and also has a history of intracranial aneurysm that was negative for bleeding on last evaluation and imaging. Her son was at the bedside states her systolic blood pressure was is just over 180 mmHg at home despite using medications and because of her anxiety they came here for evaluation. Patient denies headache or neck pain, no blurry vision, no chest pain or shortness of breath. ROS All systems reviewed and are negative except as per history of present illness. Medications Home Meds Active Scripts Benazepril Hcl* (Benazepril Hcl*) 5 Mg Tablet, 5 MG PO BID for 30 Days, #60 TAB 1 Refill Prov:MARY MALIK MD 05/19/18 Reported Medications Escitalopram Oxalate* (Escitalopram Oxalate*) 10 Mg Tablet, 10 MG PO DAILY, #30 TAB 05/30/18 Metoprolol Succinate* (Toprol XL*) 50 Mg Tab.er.24h, 50 MG PO DAILY, #30 TAB 05/30/18 Discontinued Reported Medications Metoprolol Succinate* (Toprol XL*) 100 Mg Tab.sr.24h, 100 MG PO QAM, #30 TAB 05/17/18 Calcium Citrate/Vitamin D (Citracal-Vitamin D 200 MG-250) 1 Each Tablet, 1 EACH PO DAILY, TAB 05/17/18 Clonidine Hcl* (Clonidine Hcl*) 0.1 Mg Tab, 0.1 MG PO BID PRN for ELEVATED BLOOD PRESSURE, TAB 05/17/18 Allergies Allergies: Coded Allergies: No Known Allergy (Unverified , 05/30/18) PMhx/Soc History of hypertension and intracranial cerebral aneurysm with recent MRI showing no evidence of infarction or hemorrhage, anxiety History of Surgery: No Anesthesia Reaction: No Hx Neurological Disorder: No Hx Respiratory Disorders: No Hx Cardiac Disorders: No Hx Psychiatric Problems: No Hx Miscellaneous Medical Probl: Yes (hyponatremia, HTN, brain aneurysm) Hx Alcohol Use: No Hx Substance Use: No Hx Tobacco Use: No Smoking Status: Never smoker FmHx Family History: diabetes Physical Exam Vitals Vital Signs Date Temp Pulse Resp B/P (MAP) Pulse Ox O2 O2 Flow FiO2 Time Delivery Rate 05/30/18 97.8 76 18 131/72 100 Room Air 16:00 (91) 05/30/18 69 18 139/79 100 Room Air 15:25 (99) 05/30/18 98.2 69 18 163/67 100 12:42 (99) Physical Exam Const: No acute distress, anxious, afebrile Neck: Full range of motion. No meningismus. Resp: Clear to auscultation bilaterally Cardio: Regular rate and rhythm, no murmurs Abd: Soft, non tender, non distended. 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 Patient was afebrile. Blood pressure was 139/69 and normal although patient remained anxious so I administered alprazolam 0.5 mg p.o. and ibuprofen 600 mg p.o. for headache Patient and her son who is at the bedside admit that the patient has anxiety and does suffer from anxiety attacks from time to time mostly related to her regular headaches and elevated blood pressure. It seems her dizziness and headache today began after using her first dose of Lexapro. Medications, including escitalopram, may in fact cause dizziness and other similar side effects although these are usually temporary. I recommended to her and her son who was at the bedside to continue medication as prescribed and follow-up with PMD. Differential diagnoses considered, included but not limited to acute coronary syndrome, pulmonary embolism, aortic dissection, abdominal aortic aneurysm, sepsis, stroke, meningitis, encephalitis, pneumonia, appendicitis, chol ecystitis, bowel obstruction, pyelonephritis, nephrolithiasis, cystitis, as well as metabolic, hematologic, and electrolyte abnormalities. As well as abscess, cellulitis, fractures, and dislocations. Patient feels much better at this time, and vital signs are normal, symptoms have improved. I did give strict instructions to return to the ED if symptoms continue or worsen, patient will otherwise follow-up with primary care physician. Patient understood instructions and agreed to plan. Disclaimer: Inadvertent spelling and grammatical errors are likely due to EHR/dictation software use and do not reflect on the overall quality of patient care. Also, please note that the electronic time recorded on this note does not necessarily reflect the actual time of the patient encounter. Departure Diagnosis: Primary Impression: Essential hypertension Additional Impressions: Aneurysm, cerebral, nonruptured Acute anxiety Adverse drug reaction Encounter type: initial encounter Qualified Codes: T50.905A - Adverse effect of unspecified drugs, medicaments and biological substances, initial encounter Condition: Good Patient Instructions: Anxiety Reaction, Hypertension, Established MIKKI COOPER MD May 30, 2018 15:40
[2018-05-30] MEDS ORDERED: METO-319 PO (15:55)
[2018-05-30] MEDS ORDERED: ESCI10TA48 PO (15:56)
[2018-05-30 16:00] VITALS: BP 131/72; PULSE 76; RESP 18
== END 2018-05-30 16:08 | disposition home or self-care (01) ==
LOC: E/R 12:22
DX: I10 Essential (primary) hypertension (principal); R40.2142 Coma scale, eyes open, spontaneous, at arrival to emergency department; R40.2362 Coma scale, best motor response, obeys commands, at arrival to emergency department; R40.2252 Coma scale, best verbal response, oriented, at arrival to emergency department; I67.1 Cerebral aneurysm, nonruptured; F41.9 Anxiety disorder, unspecified; T43.211A Poisoning by selective serotonin and norepinephrine reuptake inhibitors, accidental (unintentional), initial encounter
CPT/HCPCS: 99283

== ENCOUNTER 2018-06-22 08:56 | Emergency (ER) | payer MEDICARE, OTHER ==
[~2018-06-22] VITALS: Ht 157.5 cm; Wt 47.0 kg
[~2018-06-22 08:56] MED LIST changes: -CALC-143 PO; -CLON-379 PO; +ESCI10TA48 PO; +METO-319 PO; -METO-336 PO
[2018-06-22 09:00] VITALS: Ht 157.5 cm; Wt 47.0 kg
[2018-06-22] MEDS ORDERED: ACETAMINOPHEN 500 MG TAB PO STA (10:32)
--- NOTE | 2018-06-22 10:34 | ERD ---
ER Documentation Chief Complaint Chief Complaint C/O DIZZINESS AND MARTINEZ. STATES B/P "HIGH AT HOME" HX OF HTN HPI 73-year-old female presents the emergency department over concerns of her blood pressure being high. Patient states that she has been taking her blood pressure medication as prescribed. Despite this, she continues to have blood pressure that is elevated. She reports no focal headache, focal weakness numbness or seizure activity. She reports no chest pain or shortness of breath. She reports nonspecific tingling about her face on both sides of her face. She reports no difficulty speaking and no other neurologic, cardiac or other symptoms. ROS All systems reviewed and are negative except as per history of present illness. Medications Home Meds Active Scripts Benazepril Hcl* (Benazepril Hcl*) 5 Mg Tablet, 5 MG PO BID for 30 Days, #60 TAB 1 Refill Prov:MARY MALIK MD 05/19/18 Reported Medications Escitalopram Oxalate* (Escitalopram Oxalate*) 10 Mg Tablet, 10 MG PO DAILY, #30 TAB 05/30/18 Metoprolol Succinate* (Toprol XL*) 50 Mg Tab.er.24h, 50 MG PO DAILY, #30 TAB 05/30/18 Allergies Allergies: Coded Allergies: No Known Allergy (Unverified , 05/30/18) PMhx/Soc History of Surgery: No Anesthesia Reaction: No Hx Neurological Disorder: No Hx Respiratory Disorders: No Hx Cardiac Disorders: No Hx Psychiatric Problems: No Hx Miscellaneous Medical Probl: Yes (hyponatremia, HTN, brain aneurysm) Hx Alcohol Use: No Hx Substance Use: No Hx Tobacco Use: No Smoking Status: Never smoker Physical Exam Vitals Vital Signs Date Temp Pulse Resp B/P (MAP) Pulse Ox O2 O2 Flow FiO2 Time Delivery Rate 06/22/18 97.3 71 16 138/71 100 09:00 (93) Physical Exam GENERAL: The patient is well developed and appropriate for usual state of health in no apparent distress HEENT: Pupils equal, round, and reactive to light. EOMI. There is no scleral icterus. NECK: C-spine is soft and supple, there is no meningismus. There is no cervical lymphadenopathy. LUNGS: Clear to auscultation bilaterally. There are no rales, wheezes or rhonchi. HEART: Regular rate and rhythm, no murmurs, clicks, rubs or gallops. ABDOMEN: Soft, non-tender, non-distended. There are bowel sounds in all four quadrants. No rebound or guarding. EXTREMITIES: There is no peripheral cyanosis or edema. No focal swelling or erythema. NEURO: The patient moves all four extremities with 5/5 strength. Cranial nerves II - XII are intact. Normal gait. Alert and oriented SKIN: There is no apparent rash or petechiae. HEME/LYMPHATIC: There is no evidence of excessive bruising or lymphedema. PSYCHIATRIC: Slightly anxious. No depression symptoms. Result Diagram: 06/22/1892106/22/18921 Results 24 hrs Laboratory Tests Test 06/22/18 09:22 White Blood Count 4.0 10^3/ul Red Blood Count 3.83 10^6/ul Hemoglobin 11.7 g/dl Hematocrit 33.0 % Mean Corpuscular Volume 86.2 fl Mean Corpuscular Hemoglobin 30.5 pg Mean Corpuscular Hemoglobin Concent 35.5 g/dl Red Cell Distribution Width 11.2 % Platelet Count 244 10^3/UL Mean Platelet Volume 8.4 fl Immature Granulocytes % 0.300 % Neutrophils % 74.7 % Lymphocytes % 14.4 % Monocytes % 9.8 % Eosinophils % 0.3 % Basophils % 0.5 % Nucleated Red Blood Cells % 0.0 /100WBC Immature Granulocytes # 0.010 10^3/ul Neutrophils # 3.0 10^3/ul Lymphocytes # 0.6 10^3/ul Monocytes # 0.4 10^3/ul Eosinophils # 0.0 10^3/ul Basophils # 0.0 10^3/ul Nucleated Red Blood Cells # 0.0 10^3/ul Sodium Level 121 mmol/L Potassium Level 3.0 mmol/L Chloride Level 80 mmol/L Carbon Dioxide Level 29 mmol/L Anion Gap 12 Blood Urea Nitrogen 14 mg/dl Creatinine 0.70 mg/dl Est Glomerular Filtrat Rate mL/min mL/min Glucose Level 150 mg/dl Calcium Level 9.8 mg/dl Troponin I < 0.012 ng/ml Procedures/MDM Patient was taken to a room, seen and evaluated. Comfort measures were initiated. Diagnostic tests were ordered and reviewed. 3 LEAD RHYTHM STRIP: Normal sinus rhythm without ectopy EK lead EKG reviewed by myself: Normal Sinus Rhythm Normal [place] and intervals No ST elevation, depression, or T wave inversion Impression: Normal EKG RADIOLOGY: Reviewed with the radiologist REEVALUATION: 1030: Blood pressure normalized. Patient remained asymptomatic. Diagnostic tests were reviewed and discussed with the patient and family. She appears clinically well and appropriate for discharge. MEDICAL DECISION MAKING: Patient's blood pressure was elevated (>120/80) but appears stable without evidence of hypertension emergency or urgency. The patient was counseled about the risks of hypertension and urged to pursue outpatient monitoring and therapy within a week with their primary care carolyn gee. Departure Diagnosis: Primary Impression: Essential hypertension Condition: Stable Patient Instructions: Hypertension, Established Additional Instructions: Please see your doctor for recheck of your blood pressure within the next week. Return here for any worsening problems or concerns. GUILLEMRO FINE Jun 22, 2018 10:34
[2018-06-22 10:43] VITALS: BP 119/82; PULSE 67; RESP 16
== END 2018-06-22 10:47 | disposition home or self-care (01) ==
LOC: E/R 08:56
DX: I10 Essential (primary) hypertension (principal); R40.2142 Coma scale, eyes open, spontaneous, at arrival to emergency department; R40.2362 Coma scale, best motor response, obeys commands, at arrival to emergency department; R40.2252 Coma scale, best verbal response, oriented, at arrival to emergency department
CPT/HCPCS: 36415; 71045; 80048; 84484; 85025; 93005

== ENCOUNTER 2018-06-22 14:19 | Inpatient (IN) | payer MEDICARE, OTHER ==
[~2018-06-22] VITALS: Ht 152.4 cm; Wt 47.0 kg
[2018-06-22 14:21] VITALS: Ht 152.4 cm; Wt 47.0 kg
[2018-06-22] MEDS ORDERED: SOD CHLORIDE 0.9% 500 ML IV ONE (15:00)
--- NOTE | 2018-06-22 15:23 | ERD ---
ER Documentation Chief Complaint Chief Complaint VOMITING AND SHAKING AFTER DC FROM ED. SEEN TODAY HPI 73-year-old female I saw her earlier this morning for evaluation of nonspecific related to high blood pressure. At that time, her sodium was noted to be low but in line with her chronic hyponatremia. She was discharged home after her blood pressure was normalized. She returns this afternoon with a translating family member. Translating family member now gives further history that he believes the patient took in excess of her blood pressure medicine. Patient has been feeling "twitchy and shaky." Patient has no headache, focal weakness or neurologic symptoms. Patient reports no fevers, chills, chest pain, shortness of breath. However, she states that she feels apparently symptomatic in similar ways that she is done in the past with her hyponatremia. She was apparently vomiting at home but had no abdominal pain. ROS All systems reviewed and are negative except as per history of present illness. Medications Home Meds Active Scripts Benazepril Hcl* (Benazepril Hcl*) 5 Mg Tablet, 5 MG PO BID for 30 Days, #60 TAB 1 Refill Prov:MARY MALIK MD 05/19/18 Reported Medications Escitalopram Oxalate* (Escitalopram Oxalate*) 10 Mg Tablet, 10 MG PO DAILY, #30 TAB 05/30/18 Metoprolol Succinate* (Toprol XL*) 50 Mg Tab.er.24h, 50 MG PO DAILY, #30 TAB 05/30/18 Allergies Allergies: Coded Allergies: No Known Allergy (Unverified , 05/30/18) PMhx/Soc History of Surgery: No Anesthesia Reaction: No Hx Neurological Disorder: No Hx Respiratory Disorders: No Hx Cardiac Disorders: No Hx Psychiatric Problems: No Hx Miscellaneous Medical Probl: Yes (hyponatremia, HTN, brain aneurysm) Hx Alcohol Use: No Hx Substance Use: No Hx Tobacco Use: No FmHx Family at bedside. Physical Exam Vitals Vital Signs Date Temp Pulse Resp B/P (MAP) Pulse Ox O2 O2 Flow FiO2 Time Delivery Rate 06/22/18 97.8 57 20 139/63 99 14:21 (88) Physical Exam GENERAL: The patient is well developed and appropriate for usual state of health in no apparent distress HEENT: Pupils equal, round, and reactive to light. EOMI. There is no scleral icterus. NECK: C-spine is soft and supple, there is no meningismus. There is no cervical lymphadenopathy. LUNGS: Clear to auscultation bilaterally. There are no rales, wheezes or rhonchi. HEART: Regular rate and rhythm, no murmurs, clicks, rubs or gallops. ABDOMEN: Soft, non-tender, non-distended. There are bowel sounds in all four quadrants. No rebound or guarding. EXTREMITIES: There is no peripheral cyanosis or edema. No focal swelling or erythema. NEURO: The patient moves all four extremities with 5/5 strength. Cranial nerves II - XII are intact. Normal gait. Alert and oriented SKIN: There is no apparent rash or petechiae. HEME/LYMPHATIC: There is no evidence of excessive bruising or lymphedema. PSYCHIATRIC: Anxious appearing. Normal mental status. Results 24 hrs Current Medications Medications Dose Sig/Tri Start Time Status Last (Trade) Ordered Route PRN Stop Time Admin Dose Reason Admin Sodium 500 ml @ Q1H ONCE 06/22/18 Chloride 500 mls/hr IV 15:00 06/22/18 15:59 Procedures/MDM Patient was taken to a room, seen and examined Medical decision m[age]-year-old female re-presents to the emergency department with ongoing shakiness symptoms. At this time, I have had further conversations with family members as well as the patient regarding her "shakiness." She has no ongoing acute neurologic deterioration or symptoms that would concern me of concern of her aneurysms. Specifically, she has no headache. I have therefore not reimaged to her aneurysms with CT scan or MRI. 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 Patient does not have seizures or an altered mental status at this time and therefore I have not started 3% normal saline. Given the recurrent visit and the history, it appears at this time that the patient is now symptomatic from the hyponatremia and she will be admitted for gentle correction of her sodium. Departure Diagnosis: Primary Impression: Hyponatremia Condition: GUILLERMO Sotelo Jun 22, 2018 15:23
--- NOTE | 2018-06-22 15:57 | HP ---
Date/Time of Note Date/Time of Note DATE: 06/22/18 TIME: 15:56 Assessment/Plan VTE Prophylaxis Pharmacological prophylaxis: other Assessment/Plan Hospital Course Patient is a [place] female with a past medical history significant for very resistant hypertension and hyponatremia who presents to [facility] for symptoms of hyponatremia. Patient states that everything began last night, she ate a slightly more salty dinner than usual however nothing too out of the ordinary. Patient states that she felt a little off and some mild tingling went to sleep. Patient woke up with some more severe symptoms including more tingling. Patient was seen in the ER and discharged however had to return due to worsening of the tingling sensation in this time accompanied by severe shaking and nausea vomiting. Patient currently is alert and oriented and most of the story is given by a nephew at bedside. Patient brought in medication however it is very different than on the medication reconciliation form patient states that she has some shortness of breath but likely due to the shaking. Patient denies chest pain, abdominal pain. Patient states that she also has some dizziness. Objective Physical exam General: Patient is laying in bed and answers questions appropriately, but appears to be in some distress and nauseated Mentation: Patient is alert and oriented 4, Head: Normocephalic atraumatic Eyes: EOMI, pupils reactive to light Neck: Supple, nontender, midline Respiratory: Clear to auscultation bilaterally Cardiovascular: regular rate, no obvious murmurs Gastrointestinal: non-tender to palpation, bowel sounds heard. Neurological: Moves all extremities spontaneously Skin: No new skin lesions Assessment and plan Symptomatic hyponatremia -IV fluid -We will get stat labs, sodium this morning was 121 -We will need to slowly titrate up, not more than 8-12 mEq within 24-hour. -Patient has a history of hyponatremia and was admitted before, patient also on chlorthalidone, benazepril, labetalol, clonidine as needed, patient is not taking any depression medication at this time, chlorthalidone and benazepril will be held at this time due to its effects affecting electrolytes. Labetalol will also be held. -Nephrology consulted -Obtain renal panel now and will more than 6 hours Hypertension -Given patient's multiple blood pressure medications patient likely has very resistant hypertension -We will start off with nifedipine XL, patient will likely need to titrate this medication and add other medication as tolerated Anemia -Mild, monitor Hyponatremia -Potassium was 3.0 this morning, will get stat repeat -Replete as needed Disposition -Slowly continue IV fluids to get sodium up to a safer level, will then need to titrate blood pressure medications. HPI/ROS Admit Date/Time Admit Date/Time PMH/Family/Social Past Medical History Medications Current Medications Sodium Chloride 500 ml @ 500 mls/hr Q1H ONCE IV ; Start 06/22/18 at 15:00; Stop 06/22/18 at 15:59 Coded Allergies: No Known Allergy (Unverified , 05/30/18) Past Surgical History Past Surgical Hx: no surgical history Family History Significant Family History: no pertinent family hx Exam/Review of Systems Vital Signs Vitals Vital Signs Date Temp Pulse Resp B/P (MAP) Pulse Ox O2 O2 Flow FiO2 Time Delivery Rate 06/22/18 97.8 57 20 139/63 99 14:21 (88) MIKKI KURTZ Jun 22, 2018 15:57
[2018-06-22] MEDS ORDERED: HYDROCODONE/APAP (5/325) TAB PO PRN (16:00)
[2018-06-22] MEDS ORDERED: ACETAMINOPHEN 325 MG TAB PO PRN (16:00)
[2018-06-22] MEDS ORDERED: ONDANSETRON 4 MG INJ IV PRN (16:00)
[2018-06-22] MEDS ORDERED: morphine 2 MG INJ IV PRN (16:00)
[2018-06-22] MEDS ORDERED: hydrALAzine 20 MG INJ IV PRN ×2 (16:00→20:00)
[2018-06-22] MEDS ORDERED: NACL 0.9% 3 ML SYG IV SCH (16:00)
[2018-06-22] MEDS: POTASSIUM CHLORIDE 100 ML IVPB SCH ×2 (16:48→21:33)
[2018-06-22] MEDS ORDERED: POTASSIUM CHLORIDE (SR) 20 MEQ TAB PO STA (18:00)
--- NOTE | 2018-06-22 18:45 | CONS ---
DATE OF ADMISSION: 06/22/2018 DATE OF CONSULTATION: 06/22/2018 TYPE OF CONSULTATION: Nephrology. REASON FOR CONSULTATION: Hyponatremia. PHYSICIAN REQUESTING CONSULT: Dr. Bahena. HISTORY OF PRESENT ILLNESS: This is a 73-year-old female with a past medical history of hypertension , a previous history of acute hyponatremia, a history of depression who presents to [facility] for hypertension, lethargy and weakness. The patient states that her symptoms began last night when she ate slightly more ____ than usual. The patient states that she was unable to go to [facility] when she started having tingling in her arms and legs. As a result, she came to the emergency r oom. Upon arrival, the patient had a laboratory data drawn, which showed a sodium level of 118 mEq p er liter with a potassium level of 2.8 mEq per liter. The patient in the emergency room was started on IV potassium, IV fluids. In terms of the patient's sodium history, the patient has had previous episodes of hyponatremia in past which was felt to be related to diuretic therapy. Patient currently presents in sodium level of 118 mEq per liter, which is decreased from earlier in the morning of 121 mEq per liter. The [facility] denies any seizure activity, but describes tingling and paresthesias in the upper extremities. PAST MEDICAL HISTORY: 1. History of hypertension. 2. History of depression. PAST SURGICAL HISTORY: Reviewed. ALLERGIES: NO KNOWN DRUG ALLERGIES. FAMILY HISTORY: No family history of kidney disease. SOCIAL HISTORY: Does not drink, smoke or do drugs. MEDICATIONS: Patient medications have been reviewed. REVIEW OF SYSTEMS: A 14-point review of systems conducted. Pertinent positives stated in HPI, other guerra negative. PHYSICAL EXAMINATION: VITAL SIGNS: Blood pressure is 139/63, respiratory rate 20, pulse 57, temperature 97.8. HEENT: Head is normocephalic. NECK: Supple. HEART: Regular rate. LUNGS: Show diminished breath sounds at the base. ABDOMEN: Soft, nontender to palpation without rebound or guarding. EXTREMITIES: Negative for clubbing, cyanosis, no edema. DERMATOLOGIC: No rashes. MUSCULOSKELETAL: No joint effusions. NEUROLOGIC: No focal deficits, no weakness. LABORATORY DATA: Shows sodium 118, potassium 2.8, chloride 77, BUN 16, creatinine 0.64. White cell 3.6, hemoglobin 11.3, platelet count is 232. ASSESSMENT AND PLAN: This is a 73-year-old female who presents with: 1. Hyponatremia, possibly acute versus subacute. Etiology is likely multifactorial secondary to thi azide diuretic, chlorthalidone, possible ROMY inhibitor effect, possible SSRI effect. The possibility of an underlying SIADH is also a consideration. Please note that hypokalemia is also a contributing factor to patient's hyponatremia. Plan at this point is to do a full evaluation. We will check uri ne sodium, urine osmolarity. We will check a uric acid level, a TSH level, a.m. cortisol level. Wou ld correct underlying hypokalemia. Agree with fluid challenge. We will check serial sodium levels t o ensure correction of no more than 10 to 12 mEq in a 24-hour period and we will monitor closely. Th ere is no immediate need for 3% sodium chloride; however, if the patient's symptoms progressed, and s odium levels do not improve with initial management would consider starting 3% sodium chloride. 2. Hypokalemia, likely due to diuretic therapy. Continue repletion with potassium chloride. We marlen l follow up a potassium level. 3. Paresthesia. Etiology may be secondary to underlying electrolyte abnormality, hyponatremia, hypo kalemia. We will continue to replete potassium. Continue to slowly correct sodium levels as stated above. Monitor closely. 4. Hypertension. Continue current blood pressure regimen. Hold thiazide diuretics. 5. Anemia. Continue to monitor H and H levels. 6. Mild leukopenia. Continue to monitor. Thank you, Dr. Bahena, for this interesting consult. It will be a pleasure to follow patient with you t guillermoout the hospital course. Dictated By: LIS LÓPEZ DO NR/KUNAL Conf#: [id number] DID#: [id number]
[2018-06-22 20:00] VITALS: BP 144/70; PULSE 79; RESP 18
[2018-06-22 20:01] VITALS: PULSE 75
[2018-06-22] MEDS: SOD CHLORIDE 0.9% 1,000 ML IV SCH (20:52)
[2018-06-23] VITALS (13 sets, daily range): BP systolic 97–133; BP diastolic 54–75; PULSE 71–82; RESP 18
[2018-06-23] MEDS ORDERED: ZOLPIDEM 5 MG TAB PO PRN
[2018-06-23] MEDS ORDERED: NIFEdipine (XL) 60 MG TAB PO SCH (09:00)
[2018-06-23] MEDS ORDERED: METOPROLOL (XL) 50 MG TAB PO SCH (09:00)
[2018-06-23] MEDS ORDERED: POTASSIUM CHLORIDE (SR) 20 MEQ TAB PO STA (09:00)
--- NOTE | 2018-06-23 09:09 | PN ---
DATE: 06/23/2018 SUBJECTIVE: The patient is clinically improving. The patient's tingling in the hands have improved. No other events noted. OBJECTIVE: VITAL SIGNS: Blood pressure is 123/70, respirations 18, pulse 73, temperature 98.1. HEENT: Head is normocephalic. NECK: Supple. HEART: Regular rate. LUNGS: Show diminished breath sounds at the base. ABDOMEN: Soft, nontender to palpation without rebound or guarding. EXTREMITIES: Negative for clubbing, cyanosis, no edema. DERMATOLOGIC: No rashes. MUSCULOSKELETAL: No joint effusion. NEUROLOGIC: No change in exam. MEDICATIONS: Reviewed. LABORATORY DATA: Show sodium 126, potassium 3.4, BUN 11, creatinine 0.65. The patient's urinalysis shows FENa less than 1%, and urine osmolarity 416. ASSESSMENT AND PLAN: 1. Hypernatremia, likely acute versus subacute. Etiology is multifactorial secondary to thiazide di uretic, i.e., chlorthalidone and hypokalemia. The patient's sodium levels have improved with repleti on of potassium chloride and gentle IV hydration. Sodium levels appropriately corrected approximatel y 4 mEq in a 24-hour period. Plan at this point is to continue medical management. Continue IV hydr ation. Continue repletion of potassium chloride. We would avoid diuretic therapy. 2. Hypokalemia secondary to diuretic therapy. Continue to replete with potassium chloride. 3. Paresthesia secondary to electrolyte abnormality, hyponatremia, hypokalemia, improved. 4. Hypertension. Continue to monitor. 5. Anemia. Continue to monitor hemoglobin and hematocrit levels. 6. Leukopenia. Dictated By: LIS LÓPEZ DO NR/NTS Conf#: [id number] DID#: [id number] CC: MIKKI KURTZ MD;*EndCC*
[2018-06-23] MEDS: SOD CHLORIDE 0.9% 1,000 ML IV SCH (11:38)
--- NOTE | 2018-06-23 14:29 | PN ---
Date/Time of Note Date/Time of Note DATE: 06/23/18 TIME: 14:28 Objective Vitals Vital Signs Date Temp Pulse Resp B/P (MAP) Pulse Ox O2 O2 Flow FiO2 Time Delivery Rate 06/23/18 73 12:00 06/23/18 98.0 18 130/75 100 11:11 (93) 06/22/18 Room Air 18:52 Intake and Output 06/22/18 06/22/18 06/23/18 1515:00 23:00 07:00 IntakeIntake Total 1200 ml BalanceBalance 1200 ml Results Result Diagram: 06/23/18 0502 06/23/18 0502 Medications Medications Current Medications Sodium Chloride 1,000 ml @ 50 mls/hr Q20H IV Last administered on 06/22/18at 20:52; Admin Dose 50 MLS/HR; Start 06/22/18 at 15:38 IV Flush (NS 3 ml) 3 ml PER PROTOCOL IV ; Start 06/22/18 at 16:00 Ondansetron HCl (Zofran Inj) 4 mg Q6H PRN IV NAUSEA/VOMITING; Start 06/22/18 at 16:00 Acetaminophen (Tylenol Tab) 650 mg Q6H PRN PO .PAIN 1-3 OR TEMP; Start 06/22/18 at 16:00 Acetaminophen/ Hydrocodone Bitart ([place] (5/325)) 1 tab Q6H PRN PO .PAIN 4-6 Last administered on 06/22/18at 20:52; Admin Dose 1 TAB; Start 06/22/18 at 16:00 Morphine Sulfate (morphine) 2 mg Q4H PRN IV .PAIN 7-10; Start 06/22/18 at 16:00 Hydralazine HCl (Apresoline) 10 mg Q4H PRN IV sbp >160; Start 06/22/18 at 20:00 Nifedipine (Procardia Xl) 30 mg DAILY PO ; Start 06/24/18 at 09:00 VTE Prophylaxis Risk score (from Nsg)>0 risk: 2 SCD applied (from Nsg): Yes Lines/Catheters IV Catheter Type: Cruz in Place: No Assessment/Plan Hospital Course Subjective Patient feeling so much better than yesterday Objective Physical exam General: Patient is laying in bed and answers questions appropriately, Mentation: Patient is alert and oriented 4, Head: Normocephalic atraumatic Eyes: EOMI, pupils reactive to light Neck: Supple, nontender, midline Respiratory: Clear to auscultation bilaterally Cardiovascular: regular rate, no obvious murmurs Gastrointestinal: non-tender to palpation, bowel sounds heard. Neurological: Moves all extremities spontaneously Skin: No new skin lesions Assessment and plan Symptomatic hyponatremia -IV fluid to continue, patient still not within normal limits -We will need to slowly titrate up, not more than 8-12 mEq within 24-hour. -Patient has a history of hyponatremia and was admitted before, patient also on chlorthalidone, benazepril, labetalol, clonidine as needed, patient is not t aking any depression medication at this time, chlorthalidone and benazepril will be held at this time due to its effects affecting electrolytes. Labetalol will also be held. -Nephrology consulted Hypertension -Given patient's multiple blood pressure medications patient likely has very resistant hypertension -We will start off with nifedipine XL, patient will likely need to titrate this medication and add other medication as tolerated Anemia -Mild, monitor Hypokalemia -Replete as needed Disposition -Slowly continue IV fluids to get sodium up to a safer level, will then need to titrate blood pressure medications. MIKKI KURTZ Jun 23, 2018 14:29
[2018-06-24] VITALS (11 sets, daily range): BP systolic 123–184; BP diastolic 65–84; PULSE 70–96; RESP 18–22
[2018-06-24] MEDS: SOD CHLORIDE 0.9% 1,000 ML IV SCH
[2018-06-24] MEDS ORDERED: ZOLPIDEM 5 MG TAB PO PRN (01:30)
[2018-06-24] MEDS ORDERED: POTASSIUM CHLORIDE 20 MEQ POWDER FOR ORAL SOLN PO ONE (08:00)
[2018-06-24] MEDS: NIFEdipine (XL) 30 MG TAB PO SCH (08:13)
--- NOTE | 2018-06-24 09:44 | PN ---
DATE: 06/24/2018 SUBJECTIVE: The patient is stable, no events overnight. OBJECTIVE: VITAL SIGNS: Blood pressure is 132/69, respirations 22, pulse 83, temperature 97.6. HEENT: Head is normocephalic. NECK: Supple. HEART: Regular rate. LUNGS: Show diminished breath sounds at the base. ABDOMEN: Soft, nontender to palpation without rebound or guarding. EXTREMITIES: Negative for clubbing, cyanosis, no edema. DERMATOLOGIC: No rashes. MUSCULOSKELETAL: No joint effusion. NEUROLOGIC: No change in exam. MEDICATIONS: The patient's medications have been reviewed. LABORATORY DATA: Has been reviewed. ASSESSMENT AND PLAN: 1. Hyponatremia. Etiology is likely acute kidney injury is secondary to Dyazide effect and hypokale yuliya. The patient's sodium levels have improved with IV fluids. Plan at this point is to discontinue IV fluids, continue to correct underlying hypokalemia. The patient advised to avoid any diuretic th erapy in the future. 2. Hypokalemia secondary to diuretic therapy. Continue to replete. 3. Paraesthesia secondary to hyperkalemia, hyponatremia, resolved. 4. Hypertension. Continue current blood pressure regimen. 5. Anemia. Monitor hemoglobin and hematocrit levels. Dictated By: LIS REYES/NTS Conf#: [id number] DID#: [id number] CC: MIKKI KURTZ MD;*End*
--- NOTE | 2018-06-24 11:29 | PN ---
Date/Time of Note Date/Time of Note DATE: 06/24/18 TIME: 11:27 Objective Vitals Vital Signs Date Temp Pulse Resp B/P (MAP) Pulse Ox O2 O2 Flow FiO2 Time Delivery Rate 06/24/18 74 08:01 06/24/18 97.6 22 132/69 96 Room Air 07:37 (90) Intake and Output 06/23/18 06/23/18 06/24/18 1515:00 23:00 07:00 IntakeIntake Total 500 ml 2504 ml 1200 ml OutputOutput Total 500 ml 3875 ml 2800 ml BalanceBalance 0 ml -1371 ml -1600 ml Results Result Diagram: 06/24/18 0502 06/24/18 0502 Medications Medications Current Medications IV Flush (NS 3 ml) 3 ml PER PROTOCOL IV ; Start 06/22/18 at 16:00 Ondansetron HCl (Zofran Inj) 4 mg Q6H PRN IV NAUSEA/VOMITING; Start 06/22/18 at 16:00 Acetaminophen (Tylenol Tab) 650 mg Q6H PRN PO .PAIN 1-3 OR TEMP; Start 06/22/18 at 16:00 Acetaminophen/ Hydrocodone Bitart ([place] (5/325)) 1 tab Q6H PRN PO .PAIN 4-6 Last administered on 06/22/18at 20:52; Admin Dose 1 TAB; Start 06/22/18 at 16:00 Morphine Sulfate (morphine) 2 mg Q4H PRN IV .PAIN 7-10; Start 06/22/18 at 16:00 Hydralazine HCl (Apresoline) 10 mg Q4H PRN IV sbp >160; Start 06/22/18 at 20:00 Nifedipine (Procardia Xl) 30 mg DAILY PO Last administered on 06/24/18at 08:13; Admin Dose 30 MG; Start 06/24/18 at 09:00 VTE Prophylaxis Risk score (from Nsg)>0 risk: 2 SCD applied (from Nsg): Yes Lines/Catheters IV Catheter Type: Cruz in Place: No Assessment/Plan Hospital Course Subjective Patient feeling well Objective Physical exam General: Patient is laying in bed and answers questions appropriately, Mentation: Patient is alert and oriented 4, Head: Normocephalic atraumatic Eyes: EOMI, pupils reactive to light Neck: Supple, nontender, midline Respiratory: Clear to auscultation bilaterally Cardiovascular: regular rate, no obvious murmurs Gastrointestinal: non-tender to palpation, bowel sounds heard. Neurological: Moves all extremities spontaneously Skin: No new skin lesions Assessment and plan Symptomatic hyponatremia -Stop IV fluid -Nearly fully resolved -Patient has a history of hyponatremia and was admitted before, patient also on chlorthalidone, benazepril, labetalol, clonidine as needed, patient is not taking any depression medication at this time, chlorthalidone and benazepril will be held at this time due to its effects affecting electrolytes. Labetalol will also be held. -Patient doing well on nifedipine XL -Patient was previously admitted for the same issue -Nephrology consulted Hypertension -Given patient's multiple blood pressure medications patient likely has very resistant hypertension -We will start off with nifedipine XL, patient will likely need to titrate this medication and add other medication as tolerated Anemia -Mild, monitor Hypokalemia -Replete as needed Disposition -Patient doing very well from the hyponatremia standpoint, however patient was admitted previously for the same issue, will monitor for 24 hours without any IV fluid to assess if this indeed was a side effect of patient's diuretic antihypertensive or if this is another underlying issue, if no additional issues patient will likely be safe to discharge tomorrow with nifedipine XL MIKKI KURTZ Jun 24, 2018 11:29
[2018-06-25] VITALS (11 sets, daily range): BP systolic 120–140; BP diastolic 69–85; PULSE 69–92; RESP 20
[2018-06-25] MEDS: NIFEdipine (XL) 30 MG TAB PO SCH (07:52)
[2018-06-25] MEDS ORDERED: POTASSIUM CHLORIDE (SR) 20 MEQ TAB PO STA (08:55)
--- NOTE | 2018-06-25 13:02 | PN ---
Date/Time of Note Date/Time of Note DATE: 06/25/18 TIME: 12:52 Assessment/Plan VTE Prophylaxis Risk score (from Ns)>0 risk: 2 SCD applied (from Ns): Yes Pharmacological prophylaxis: NA/contraindicated Pharm contraindication: low risk/ambulating Lines/Catheters [facility] [place] [facility] Urinary Cath still in place: No Assessment/Plan Assessment/Plan 1. Symptomatic hyponatremia- resolving - Patients Na 134 today and remains off IVF - Patient has been admitted in the past for hyponatremia that was believed to be secondary to overmedicating due to concern when BP is greater than 120 - Nephrology on board and appreciate recommendations 2. Hypertension - Continue on nifedipine and will increased Lisinopril to BID. BP is stable but patient is concerning has SBP readings in 140s. 3. Anemia - Mild, monitor 4. Hypokalemia - Replaced 5. Disposition - Patients hyponatremia is resolving. Will increase Lisinopril to BID given patients concern for SBP in 140s. Risk of self medicating after discharge if not optimized prior. Discussed with patient if BP remains stable over the next 24 hours, will d/c home Result Diagram: 06/25/18 0507 06/25/18 0507 Results 24hrs Laboratory Tests Test 06/25/18 05:07 White Blood Count 3.1 L Red Blood Count 4.20 Hemoglobin 12.7 Hematocrit 36.5 L Mean Corpuscular Volume 86.9 Mean Corpuscular Hemoglobin 30.2 Mean Corpuscular Hemoglobin Concent 34.8 Red Cell Distribution Width 11.8 Platelet Count 263 Mean Platelet Volume 8.4 Immature Granulocytes % 0.300 Neutrophils % 38.6 L Lymphocytes % 37.3 Monocytes % 21.2 H Eosinophils % 1.6 Basophils % 1.0 Nucleated Red Blood Cells % 0.0 Immature Granulocytes # 0.010 Neutrophils # 1.2 L Lymphocytes # 1.1 Monocytes # 0.7 Eosinophils # 0.1 Basophils # 0.0 Nucleated Red Blood Cells # 0.0 Sodium Level 134 L Potassium Level 3.6 Chloride Level 95 L Carbon Dioxide Level 28 Anion Gap 11 Blood Urea Nitrogen 11 Creatinine 0.62 Est Glomerular Filtrat Rate mL/min Glucose Level 92 Calcium Level 9.6 Phosphorus Level 3.0 Magnesium Level 2.0 Subjective 24 Hr Interval Summary Free Text/Dictation Patient states shes feeling better and denies any dizziness or confusion. Admits to being concerning about her BP being 140 at 11am. No acute overnight events. Exam/Review of Systems Exam Vitals Vital Signs Date Temp Pulse Resp B/P (MAP) Pulse Ox O2 O2 Flow FiO2 Time Delivery Rate 06/25/18 72 12:00 06/25/18 98.1 20 140/69 96 Room Air 11:34 (92) Intake and Output 06/24/18 06/24/18 06/25/18 1515:00 23:00 07:00 IntakeIntake Total 2850 ml 1500 ml OutputOutput Total 3200 ml 1600 ml BalanceBalance -350 ml -100 ml Exam General: Patient is sitting up in bed and answers questions appropriately, Neck: Supple Respiratory: Clear to auscultation bilaterally. no wheezing Cardiovascular: regular rate and rhythm, no obvious murmurs Gastrointestinal: soft, non-tender to palpation, bowel sounds heard. Neurological: Moves all extremities spontaneously Skin: No new skin lesions Results Results 24hrs Laboratory Tests Test 06/25/18 05:07 White Blood Count 3.1 L Red Blood Count 4.20 Hemoglobin 12.7 Hematocrit 36.5 L Mean Corpuscular Volume 86.9 Mean Corpuscular Hemoglobin 30.2 Mean Corpuscular Hemoglobin Concent 34.8 Red Cell Distribution Width 11.8 Platelet Count 263 Mean Platelet Volume 8.4 Immature Granulocytes % 0.300 Neutrophils % 38.6 L Lymphocytes % 37.3 Monocytes % 21.2 H Eosinophils % 1.6 Basophils % 1.0 Nucleated Red Blood Cells % 0.0 Immature Granulocytes # 0.010 Neutrophils # 1.2 L Lymphocytes # 1.1 Monocytes # 0.7 Eosinophils # 0.1 Basophils # 0.0 Nucleated Red Blood Cells # 0.0 Sodium Level 134 L Potassium Level 3.6 Chloride Level 95 L Carbon Dioxide Level 28 Anion Gap 11 Blood Urea Nitrogen 11 Creatinine 0.62 Est Glomerular Filtrat Rate mL/min Glucose Level 92 Calcium Level 9.6 Phosphorus Level 3.0 Magnesium Level 2.0 Medications Medication Current Medications IV Flush (NS 3 ml) 3 ml PER PROTOCOL IV ; Start 06/22/18 at 16:00 Ondansetron HCl (Zofran Inj) 4 mg Q6H PRN IV NAUSEA/VOMITING; Start 06/22/18 at 16:00 Acetaminophen (Tylenol Tab) 650 mg Q6H PRN PO .PAIN 1-3 OR TEMP; Start 06/22/18 at 16:00 Acetaminophen/ Hydrocodone Bitart ([place] (5/325)) 1 tab Q6H PRN PO .PAIN 4-6 Last administered on 06/22/18at 20:52; Admin Dose 1 TAB; Start 06/22/18 at 16:00 Morphine Sulfate (morphine) 2 mg Q4H PRN IV .PAIN 7-10; Start 06/22/18 at 16:00 Hydralazine HCl (Apresoline) 10 mg Q4H PRN IV sbp >160 Last administered on 06/24/18at 11:48; Admin Dose 10 MG; Start 06/22/18 at 20:00 Nifedipine (Procardia Xl) 30 mg DAILY PO Last administered on 06/25/18at 07:52; Admin Dose 30 MG; Start 06/24/18 at 09:00 Lisinopril (Zestril) 10 mg BID PO ; Start 06/26/18 at 09:00 MARI WALKER MD Jun 25, 2018 13:02
--- NOTE | 2018-06-25 14:29 | PN ---
DATE: 06/25/2018 SUBJECTIVE: The patient is stable. No events overnight. No fevers, chills, nausea, vomiting. OBJECTIVE: VITAL SIGNS: Blood pressure is 140/79, respiratory rate 20, pulse 78, temperature 98.2. HEENT: Head is normocephalic. NECK: Supple. HEART: Regular rate. LUNGS: Show diminished breath sounds at the base. ABDOMEN: Soft, nontender to palpation without rebound or guarding. EXTREMITIES: Negative for clubbing, cyanosis. No edema. DERMATOLOGIC: No rashes. MUSCULOSKELETAL: No joint effusion. NEUROLOGIC: No change in exam. MEDICATIONS: Have been reviewed. LABORATORY DATA: Have been reviewed. ASSESSMENT AND PLAN: 1. Hyponatremia, etiology secondary to thiazide effect and hypokalemia. The patient's sodium levels are partly improved. Continue to monitor and we would avoid thiazide diuretics in the future. 2. Hypokalemia. Continue to monitor and replete. 3. Hypertension. Continue blood pressure regimen. Start the patient on ROMY inhibitor. 4. Anemia. Monitor hemoglobin and hematocrit levels. 5. Paresthesias, resolved. Dictated By: LIS LÓPEZ DO NR/NTS Conf#: [id number] DID#: [id number] CC: MIKKI KURTZ MD; MARI WALKER MD;*End*
[2018-06-26] VITALS (8 sets, daily range): BP systolic 124–154; BP diastolic 68–83; PULSE 69–95; RESP 18–20
[2018-06-26] MEDS ORDERED: POTASSIUM CHLORIDE (SR) 20 MEQ TAB PO STA (08:27)
[2018-06-26] MEDS: NIFEdipine (XL) 30 MG TAB PO SCH (08:55)
[2018-06-26] MEDS ORDERED: LISINOPRIL 10 MG TAB PO SCH ×3 (09:00)
--- NOTE | 2018-06-26 09:49 | PN ---
DATE: 06/26/2018 SUBJECTIVE: The patient is stable. No events overnight. OBJECTIVE: VITAL SIGNS: Blood pressure is 154/82, pulse 73, respirations 18, temperature 97.6. HEENT: Head is normocephalic. NECK: Supple. HEART: Regular rate. LUNGS: Show diminished breath sounds at the base. ABDOMEN: Soft, nontender to palpation without rebound or guarding. EXTREMITIES: Negative for clubbing, cyanosis, no edema. DERMATOLOGIC: No rashes. MUSCULOSKELETAL: No joint effusion. NEUROLOGIC: No change in exam. MEDICATIONS: Reviewed. LABORATORY DATA: Laboratory data from 06/26/2018 was reviewed. ASSESSMENT AND PLAN: 1. Hypernatremia, etiology is multifactorial secondary to Dyazide effect, polydipsia. The patient c onsumes copious amounts of fluids. I explained to the patient to drink no more than 1 liter of free water daily. We will continue to monitor sodium levels closely. 2. Hyperkalemia, improved. 3. Hypertension. Continue current blood pressure regimen. Continue ROMY inhibitor. 4. Anemia. Monitor hemoglobin and hematocrit levels. Dictated By: LIS LÓPEZ DO NR/NTS Conf#: [id number] DID#: [id number] CC: MIKKI KURTZ MD; MARI WALKER MD;*End*
--- NOTE | 2018-06-26 09:49 | PN ---
Date/Time of Note Date/Time of Note DATE: 06/26/18 TIME: 09:49 Assessment/Plan VTE Prophylaxis Risk score (from Ns)>0 risk: 2 SCD applied (from Ns): Yes Pharmacological prophylaxis: NA/contraindicated Pharm contraindication: low risk/ambulating Lines/Catheters IV Catheter Type (from [facility]): [facility] [facility] Urinary Cath still in place: No Assessment/Plan Assessment/Plan 1. Symptomatic hyponatremia- improving - Patient has been drinking excessive amounts of fluids. Counseled to refrain from drinking more than 1 L a day - Patients Na 132 today - Patient has been admitted in the past for hyponatremia that was believed to be secondary to overmedicating due to concern when BP is greater than 120 - Nephrology on board and appreciate recommendations 2. Hypertension - Continue on nifedipine and Lisinopril. BP is stable 3. Anemia - Mild, monitor 4. Hypokalemia - Replaced 5. Disposition - Medically stable for discharge home Result Diagram: 06/25/18 0507 06/26/18 0521 Results 24hrs Laboratory Tests Test 06/26/18 05:21 Sodium Level 132 L Potassium Level 3.6 Chloride Level 95 L Carbon Dioxide Level 26 Anion Gap 11 Blood Urea Nitrogen 11 Creatinine 0.59 Glucose Level 98 Calcium Level 9.4 Phosphorus Level 2.9 Magnesium Level 2.1 Albumin 4.1 Subjective 24 Hr Interval Summary Free Text/Dictation Patient states she's doing well and requesting to go home. No acute overnight events. Exam/Review of Systems Exam Vitals Vital Signs Date Temp Pulse Resp B/P (MAP) Pulse Ox O2 O2 Flow FiO2 Time Delivery Rate 06/26/18 95 08:00 06/26/18 97.6 18 154/82 99 Room Air 07:40 (106) Intake and Output 06/25/18 06/25/18 06/26/18 1414:59 22:59 06:59 IntakeIntake Total 1200 ml 1000 ml OutputOutput Total 1550 ml 1400 ml BalanceBalance -350 ml -400 ml Exam General: Patient is sitting up in bed and answers questions appropriately. Neck: Supple Respiratory: Clear to auscultation bilaterally. no wheezing Cardiovascular: regular rate and rhythm, no obvious murmurs Gastrointestinal: soft, non-tender to palpation, bowel sounds heard. Neurological: Moves all extremities spontaneously Skin: No new skin lesions Results Results 24hrs Laboratory Tests Test 06/26/18 05:21 Sodium Level 132 L Potassium Level 3.6 Chloride Level 95 L Carbon Dioxide Level 26 Anion Gap 11 Blood Urea Nitrogen 11 Creatinine 0.59 Glucose Level 98 Calcium Level 9.4 Phosphorus Level 2.9 Magnesium Level 2.1 Albumin 4.1 Medications Medication Current Medications IV Flush (NS 3 ml) 3 ml PER PROTOCOL IV ; Start 06/22/18 at 16:00 Ondansetron HCl (Zofran Inj) 4 mg Q6H PRN IV NAUSEA/VOMITING; Start 06/22/18 at 16:00 Acetaminophen (Tylenol Tab) 650 mg Q6H PRN PO .PAIN 1-3 OR TEMP; Start 06/22/18 at 16:00 Acetaminophen/ Hydrocodone Bitart ([place] (5/325)) 1 tab Q6H PRN PO .PAIN 4-6 Last administered on 06/22/18at 20:52; Admin Dose 1 TAB; Start 06/22/18 at 16:00 Morphine Sulfate (morphine) 2 mg Q4H PRN IV .PAIN 7-10; Start 06/22/18 at 16:00 Hydralazine HCl (Apresoline) 10 mg Q4H PRN IV sbp >160 Last administered on 06/24/18at 11:48; Admin Dose 10 MG; Start 06/22/18 at 20:00 Nifedipine (Procardia Xl) 30 mg DAILY PO Last administered on 06/26/18at 08:55; Admin Dose 30 MG; Start 06/24/18 at 09:00 Lisinopril (Zestril) 20 mg BID PO Last administered on 06/26/18at 08:54; Admin Dose 20 MG; Start 06/26/18 at 09:00 MARI WALKER MD Jun 26, 2018 09:49
[2018-06-26] MEDS ORDERED: LISI10TA2 PO (13:52)
[2018-06-26] MEDS ORDERED: NIFE30TA2 PO (13:52)
--- NOTE | 2018-06-26 13:54 | PDOCDIS ---
Discharge Instructions DIAGNOSIS Discharge Diagnosis 1. Symptomatic hyponatremia- resolving 2. Hypertension 3. Anemia 4. Hypokalemia CONDITION [id number] Patient Condition: [id number] Stable FOLLOW UP/APPOINTMENTS Follow-up Plan 1. Follow up with your primary care physician in 1 weeks 2. You will need to continue Lisinopril 20mg twice a day and Nifedipine 30mg daily 3. You need to limit your fluid intake to 1 liter a day since it is causing your low sodium levels 4. If experiencing any concerning symptoms, please return to the emergency department MARI WALKER MD Jun 26, 2018 13:54
--- NOTE | 2018-06-26 17:18 | DS ---
Date/Time of Note Date/Time of Note DATE: 06/26/18 TIME: 17:14 Discharge Summary Admission/Discharge Info Admit Date/Time Jun 22, 2018 at 15:31 Discharge Date/Time Jun 26, 2018 at 15:08 Discharge Diagnosis 1. Symptomatic hyponatremia- resolving 2. Hypertension 3. Anemia 4. Hypokalemia Patient Condition: Stable Consults Nephrology- Dr. Cohen Hx of Present Illness Patient is a [place] female with a past medical history significant for very resistant hypertension and hyponatremia who presents to [facility] for symptoms of hyponatremia. Patient states that everything began last night, she ate a slightly more salty dinner than usual however nothing too out of the ordinary. Patient states that she felt a little off and some mild tingling went to sleep. Patient woke up with some more severe symptoms including more tingling. Patient was seen in the ER and discharged however had to return due to worsening of the tingling sensation in this time accompanied by severe shaking and nausea vomiting. Patient currently is alert and oriented and most of the story is given by a nephew at bedside. Patient brought in medication however it is very different than on the medication reconciliation form patient states that she has some shortness of breath but likely due to the shaking. Patient denies chest pain, abdominal pain. Patient states that she also has some dizziness. Hospital Course Patient was found with hyponatremia and nephrology was consulted for assistance with management. Patients hypertensive medications were adjusted given they may have been contributing to her hyponatremia. Patient was continued on IVF with improvement in her sodium levels and after d/c of fluids continued to improved. Patient was advised to follow a strict 1 L fluid intake and to only continue on Nifedipine and Lisinopril for BP control. Patients presenting symptoms resolved and sodium levels improved. Patient was discharged home in stable condition with instructions to follow up with her PCP for close monitoring. Home Meds Active Scripts Nifedipine (Procardia Xl) 30 Mg Tab.er.24, 30 MG PO DAILY for 30 Days, #30 TAB 1 Refill Prov:MARI WALKER MD 06/26/18 Lisinopril* (Lisinopril*) 10 Mg Tablet, 20 MG PO BID for 30 Days, #60 TAB 1 Refill Prov:MARI WALKER MD 06/26/18 Discontinued Reported Medications Escitalopram Oxalate* (Escitalopram Oxalate*) 10 Mg Tablet, 10 MG PO DAILY, #30 TAB 05/30/18 Metoprolol Succinate* (Toprol XL*) 50 Mg Tab.er.24h, 50 MG PO DAILY, #30 TAB 05/30/18 Discontinued Scripts Benazepril Hcl* (Benazepril Hcl*) 5 Mg Tablet, 5 MG PO BID for 30 Days, #60 TAB 1 Refill Prov:MARY MALIK MD 05/19/18 Follow-up Plan 1. Follow up with your primary care physician in 1 weeks 2. You will need to continue Lisinopril 20mg twice a day and Nifedipine 30mg daily 3. You need to limit your fluid intake to 1 liter a day since it is causing your low sodium levels 4. If experiencing any concerning symptoms, please return to the emergency department Primary Care Provider Not On Staff Doctor Time spent on discharge: > 30 minutes Pending Labs Laboratory Tests Test 06/26/18 05:21 Sodium Level 132 mmol/L (135-144) Potassium Level 3.6 mmol/L (3.5-5.1) Chloride Level 95 mmol/L (97-110) Carbon Dioxide Level 26 mmol/L (21-31) Anion Gap 11 (5-13) Blood Urea Nitrogen 11 mg/dl (7-20) Creatinine 0.59 mg/dl (0.44-1.00) Glucose Level 98 mg/dl (70-220) Calcium Level 9.4 mg/dl (8.4-10.2) Phosphorus Level 2.9 mg/dl (2.5-4.9) Magnesium Level 2.1 mg/dl (1.7-2.5) Albumin 4.1 g/dl (3.3-4.9) MARI WALKER MD Jun 26, 2018 17:18
== END 2018-06-26 15:08 | disposition home or self-care (01) | DRG 641 ==
LOC: E/R 14:19 → 6WM 15:31
PROVIDERS: ADMIT Internal Medicine; ATTEND Internal Medicine
DX: E87.1 Hypo-osmolality and hyponatremia (principal); E87.6 Hypokalemia; I10 Essential (primary) hypertension; D72.819 Decreased white blood cell count, unspecified; D64.9 Anemia, unspecified; R20.2 Paresthesia of skin
CPT/HCPCS: 80048; 80053; 80061; 80069; 81001; 81003; 82043; 83036; 83735; 83935; 84100; 84155; 84300; 84443; 84560; 85025; J0360; J2270; J3480; J7030